=== PATIENT | female | born 1940 | race Caucasian/White ===

== ENCOUNTER 2016-11-30 17:08 | Emergency (ER) | payer MEDICARE, MEDICAID ==
[~2016-11-30] VITALS: Ht 162.6 cm; Wt 65.3 kg
[~2016-11-30 17:08] MED LIST: ASP325T PO; CIPR500S2 PO; ESCI20TA2 PO; ESCI20TA38 PO; EZET1TAB44 PO; FEXO180T84 PO; FLC100T1 PO; GLYB5TAB6 PO; LEXAPRO; LEXAPRO PO; LVT.05T PO; METO25TA PO; MTP25TSR PO; OMEP10CA4 PO; OMEP20CA12 PO; PNT40TEC PO; SCR1T1 PO; SPRN25T GT
--- NOTE | 2016-11-30 17:57 | ED General ---
General Chief Complaint: Dizziness/Syncope Stated Complaint: DISORIENTATION,SWEATY Source of Information: Patient, Spouse Exam Limitations: No Limitations History of Present Illness Time Seen by Provider: 17:50 Initial Comments Patient presents to ER with a chief complaint of just prior to arrival dizziness lightheadedness and nausea. 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 She says her symptoms resolved shortly after they came on and she did not have her glucose monitor to check her sugar. She is not recently had any illness, fever or chills or diarrhea. She says she gets constipated and uses Ex-Lax for this. She also feels that her abdomen is more distended as of lately and was told by her gastric neurologist that she might need to have it drained. She says she has a murmur that is known and has been having some intermittent evening chest pains for the past several weeks and was asked to set up a stress test by her primary doctor but she has not gotten around to doing this yet. She has not had a echocardiogram of her heart either. She has no other coronary history. She is not short of breath. She says she was a little sweaty and cold clammy but did not eat anything immediately after the feeling and the feeling passed within half an hour. She denies a history of seasonal allergies. Allergies and Home Medications Allergies Coded Allergies: hydroxyzine (Unverified Adverse Reaction, Intermediate, ALTERED MENTAL STATUS, 09/06/13) Penicillins (Unverified Adverse Reaction, Unknown, 09/06/13) Home Medications Aspirin 325 Mg Tab, 325 MG PO DAILY, (Reported) [facility], #14 Prescribed by: CATA TAYLOR on 04/26/14 1607 Escitalopram Oxalate 20 Mg Tablet, 20 MG PO DAILY, (Reported) Ezetimibe/Simvastatin 1 Each Tablet, 1 TAB PO HS, (Reported) 10-40MG TABLET LAST FILLED 03-10-13 #90 Glyburide 5 Mg Tablet, 5 MG PO HS, (Reported) Glyburide 5 Mg Tablet, 10 MG PO DAILY, (Reported) TAKES 2 (5MG) TABLETS EVERY MORNING AND TAKES 1 TABLET IN THE EVENING Levothyroxine Sodium 50 Mcg Tablet, 50 MCG PO DAILY, (Reported) Metoprolol Succinate 25 Mg Tab.sr.24h, 25 MG PO DAILY, (Reported) Pantoprazole Sodium 40 Mg Tablet.dr, 1 TAB PO DAILY, #90 (Reported) Spironolactone 25 Mg Tab, 50 MG GT BID, #100 Prescribed by: CATA TAYLOR on 04/26/14 1607 Sucralfate 1 Gm Tab, 1 GM PO ACHS PRN for REFLUX/ABD PAIN, (Reported) Constitutional: see HPI, No chills, diaphoresis, dizziness, No fever, malaise EENTM: blurred vision, No ear discharge, No ear pain, No eye pain, No vision loss Respiratory: No cough, No short of breath Cardiovascular: see HPI, No Hx of Intervention, No palpitations, No syncope, No vascular heart diseas Gastrointestinal: abdominal pain (mild diffuse tenderness and distention), constipation, No diarrhea, No nausea, No vomiting Genitourinary: No discharge, No dysuria : No Musculoskeletal: No joint pain, No joint swelling Skin: No pruritus, rash (mild erythematous rash in the middle of her anterior chest) Psychiatric/Neurological: Denies Headache, Denies Numbness, Denies Paresthesia Past Tbhimjv-Aowsqy-Rgkhkj Hx Patient Social History Alcohol Use: Denies Use Recreational Drug Use: No Smoking Status: Never a Smoker Recent Foreign Travel: No Contact w/Someone Who Travel: No Surgeries HX Surgeries: Yes (VENTRAL HERNIA REPAIR, GANGLION ON HANDS) Respiratory Hx Respiratory Disorders: No Cardiovascular Hx Cardiac Disorders: Yes (SMALL ANEURYSM) Neurological Hx Neurological Disorders: No Reproductive System Hx Reproductive Disorders: No Genitourinary Hx Genitourinary Disorders: No Gastrointestinal Hx Gastrointestinal Disorders: Yes Gastrointestinal Disorders: Cirrhosis Musculoskeletal Hx Musculoskeletal Disorders: Yes Musculoskeletal Disorders: Arthritis Endocrine Hx Endocrine Disorders: Yes Endocrine Disorders: Hypothyroidsim, Diabetes, Non-Insulin dep HEENT HX ENT Disorders: No Cancer Hx Cancer: No Psychosocial Hx Psychiatric Problems: Yes Behavioral Health Disorders: Anxiety, Depression Integumentary HX Skin/Integumentary Disorder: Yes Skin/Integumentary Disorders: Eczema Blood Transfusions Hx Blood Disorders: No Adverse Reaction to a Blood Tr: No Family Medical History Family Medial History: Cancer 19 MOTHER (LUNG CANCER) G8 SISTER (NON HODGKINS LYMPHOMA) Congenital heart disease 19 MOTHER Family history: Arthritis 19 FATHER 19 MOTHER G8 BROTHER G8 SISTER G8 SISTER G8 SISTER G8 SISTER G8 SISTER Family history: Cardiovascular disease 19 MOTHER Family history: Hypertension 19 MOTHER Heart disease 19 MOTHER Myocardial infarction G8 SISTER Stroke 19 FATHER 19 MOTHER Tuberculosis G8 SISTER No Family History of: Abdominal aortic aneurysm Isauro's disease Alcoholism Aphasia Cancer of colon Cataract Chest pain Congestive heart failure Cystic fibrosis Dementia Dysphagia Family history: Allergy Family history: Alzheimer's disease Family history: Asthma Family history: Breast disease Family history: Coronary thrombosis Family history: Diabetes mellitus Family history: Gastrointestinal disease Family history: Glaucoma Family history: Osteoporosis Family history: Thyroid disorder Headache Hearing loss Hereditary disease History of - anemia History of - disorder History of - respiratory disease History of drug abuse Human immunodeficiency virus (HIV) seropositivity Hypercholesterolemia Infertile Kidney disease Malignant neoplasm of lung Parkinson's disease Prostate cancer Psychotic disorder Seizure disorder Visual impairment Physical Exam Vital Signs Vital Sign - Last 12Hours 11/30/16 17:49 Temp 97.0 Pulse 69 Resp 18 B/P (MAP) 113/47 Pulse Ox 96 Capillary Refill : General Appearance: No Apparent Distress, WD/WN Eyes: Bilateral Eye EOMI, Bilateral Eye Normal Inspection, Bilateral Eye PERRL HEENT: PERRL/EOMI, No TMs Normal, Normal ENT Inspection, Pharynx Normal, Other (bilateral TMs retracted with clear effusion) Neck: Normal Inspection, Non Tender, Supple Respiratory: Chest Non Tender, Lungs Clear, Normal Breath Sounds Cardiovascular: Regular Rate, Rhythm, No JVD, Normal Peripheral Pulses, Systolic Murmur (3 out of 6) Gastrointestinal: Normal Bowel Sounds, Soft, Distended, Tenderness (diffuse but especially right upper quadrant) Extremity: Normal Capillary Refill, Non Tender, No Calf Tenderness, No Pedal Edema Neurologic/Psychiatric: Alert, Oriented x3, Normal Mood/Affect Skin: Normal Color, Warm/Dry, Erythema (mild 4 cm erythematous patch mid anterior chest over the sternum) Lymphatic: No Adenopathy Progress/Results/Core Measures Results/Orders Lab Results Laboratory Tests Test 11/30/16 17:42 11/30/16 17:48 11/30/16 18:38 Range/Units White Blood Count 3.1 L 4.3-11.0 10^3/uL Red Blood Count 3.03 L 4.35-5.85 10^6/uL Hemoglobin 10.6 L 11.5-16.0 G/DL Hematocrit 31 L 35-52 % Mean Corpuscular Volume 103 H 80-99 FL Mean Corpuscular Hemoglobin 35 H 25-34 PG Mean Corpuscular Hemoglobin Concent 34 32-36 G/DL Red Cell Distribution Width 12.9 10.0-14.5 % Platelet Count 86 L 130-400 10^3/uL Mean Platelet Volume 10.6 H 7.4-10.4 FL Neutrophils (%) (Auto) 52 42-75 % Lymphocytes (%) (Auto) 26 12-44 % Monocytes (%) (Auto) 14 H 0-12 % Eosinophils (%) (Auto) 7 0-10 % Basophils (%) (Auto) 1 0-10 % Neutrophils # (Auto) 1.6 L 1.8-7.8 X 10^3 Lymphocytes # (Auto) 0.8 L 1.0-4.0 X 10^3 Monocytes # (Auto) 0.4 0.0-1.0 X 10^3 Eosinophils # (Auto) 0.2 0.0-0.3 10^3/uL Basophils # (Auto) 0.0 0.0-0.1 10^3/uL Prothrombin Time 13.7 12.2-14.7 SEC INR Comment 1.1 0.8-1.4 Sodium Level 139 135-145 MMOL/L Potassium Level 3.7 3.6-5.0 MMOL/L Chloride Level 105 98-107 MMOL/L Carbon Dioxide Level 24 21-32 MMOL/L Anion Gap 10 5-14 MMOL/L Blood Urea Nitrogen 12 7-18 MG/DL Creatinine 0.85 0.60-1.30 MG/DL Estimat Glomerular Filtration Rate > 60 BUN/Creatinine Ratio 14 Glucose Level 164 H 70-105 MG/DL Calcium Level 8.7 8.5-10.1 MG/DL Total Bilirubin 1.8 H 0.1-1.0 MG/DL Aspartate Amino Transf (AST/SGOT) 25 5-34 U/L Alanine Aminotransferase (ALT/SGPT) 11 0-55 U/L Alkaline Phosphatase 215 H 40-136 U/L Ammonia 43 H 11-32 UMOL/L Troponin I < 0.30 <0.30 NG/ML B-Type Natriuretic Peptide 158.7 H <100.0 PG/ML Total Protein 7.0 6.4-8.2 GM/DL Albumin 3.0 L 3.2-4.5 GM/DL Lipase 37 8-78 U/L Glucometer 168 H 70-110 MG/DL Urine Color YELLOW Urine Clarity SLIGHTLY CLOUDY Urine pH 5 5-9 Urine Specific [place] 1.025 H 1.016-1.022 Urine Protein 2+ H NEGATIVE Urine Glucose (UA) NEGATIVE NEGATIVE Urine Ketones 1+ H NEGATIVE Urine Nitrite POSITIVE H NEGATIVE Urine Bilirubin 2+ H NEGATIVE Urine Urobilinogen 4 H NORMAL MG/DL Urine Leukocyte Esterase 2+ H NEGATIVE Urine RBC (Auto) 1+ H NEGATIVE Urine RBC 0-2 /HPF Urine WBC 25-50 H /HPF Urine Squamous Epithelial Cells 10-25 H /HPF Urine Crystals NONE /LPF Urine Bacteria LARGE H /HPF Urine Casts NONE /LPF Urine Mucus LARGE H /LPF Urine Culture Indicated YES My Orders Orders - KALPANA JEAN Ammonia (11/30/16 17:57) BNP (11/30/16 17:57) Cbc With Automated Diff (11/30/16 17:57) Comprehensive Metabolic Panel (11/30/16 17:57) Lipase (11/30/16 17:57) Troponin I (11/30/16 17:57) Ua Culture If Indicated (11/30/16 17:57) Chest Pa/Lat (2 View) (11/30/16 17:57) Saline Lock/Iv-Start (11/30/16 17:57) Protime With Inr (11/30/16 18:06) Urine Culture (11/30/16 18:38) Ceftriaxone Injection (Rocephin Injectio (11/30/16 19:30) Medications Given in ED Current Medications Medications Dose Ordered Sig/Jassi Route Start Time Stop Time Status Last Admin Dose Admin Ceftriaxone Sodium 1000 mg/ Sodium Chloride 50 ml @ 100 mls/hr ONCE ONCE IV 11/30/16 19:30 11/30/16 19:59 11/30/16 19:43 100 MLS/HR Vital Signs/I&O Vital Sign - Last 12Hours 11/30/16 11/30/16 17:49 18:26 Temp 97.0 Pulse 69 78 82 Resp 18 B/P (MAP) 113/47 Pulse Ox 96 Progress Note #1: Time: 18:03 Progress Note Patient presents with vague symptoms could be consistent with a hypoglycemic attack secondary to her diabetes and liver disease or could be an atypical presentation of cardiac. We'll check a troponin and her EKG looks normal. She is distended so its possible she could be a little dehydrated intravascularly so we'll check a set of orthostatic vitals. We'll get a BMP PT/INR and an ammonia level for baseline. Her chest pains are not this evening and her intermittent going on for the last several weeks so a negative troponin and EKG will probably rule out an acute GA but she may need further workup. She has retracted TMs which may be from allergies or a virus and could contribute to her dizziness as well. Her dizziness seems more lightheaded than room spinning per history. Review of her history reveals Echocardiogram from 2014 with an EF of 60% and mild mitral and tricuspid regurgitation with a pulmonary artery pressure of 40 mmHg. Cardiac catheterization report from 2010 reveals LAD calcified with 40% stenosis proximally and nonobstructive mid right coronary artery with 40% proximal stenosis and 2 segments of 40 and 50% stenosis the mid and distal right coronary artery. Piece Jobber is Dr. Esparza. ED ACS score is 17 which is not low risk and recommend a overnight serial cardiac examination with troponins and EKGs. Progress Note #2: Time: 18:56 Progress Note Her pancytopenia and elevated transaminases would be consistent with her liver disease. Her ammonia is mildly elevated. However her clinical exam does not demonstrate hepatic encephalopathy at this time. Don't have her urine back but her chest x-ray is normal and her glucose was also okay upon arrival by [facility]. After comparing her lab to 2013 in 2014 blood work this is fairly stable and nothing is out of the ordinary. Her PT/INR is normal. The orthostatic blood pressures were all unremarkable. ECG Initial ECG Impression Date: Nov 30, 2016 Initial ECG Impression Time: 17:43 Initial ECG Rate: 69 Initial ECG Rhythm: Normal Sinus Initial ECG Intervals: QT (497 ms) Initial ECG Impression: Nonspecific Changes (left ventricular hypertrophy) Initial ECG Comparisson: No Previous ECG Available Comment No ST wave elevation or depression Diagnostic Imaging Diagonstic Imaging: Xray Plain Films/CT/US/NM/MRI: chest (PA/LAT) Comments VIA [facility]. [place], [place] NAME: TATE [facility]MOLEJO [facility] REC#: [id number] PT STATUS: REG ER : 1940 PHYSICIAN: KALPANA JEAN MD ADMIT DATE: 11/30/16/ER Draft Date of Exam:11/30/16 CHEST PA/LAT (2 VIEW) EXAM: CHEST PA/LAT (2 VIEW) INDICATION: Nausea. Near syncope. COMPARISON: Chest radiographs 01/26/2013. FINDINGS: Low lung volumes including elevation of the right hemidiaphragm. Normal heart size and pulmonary vascularity. Calcified aorta. No dense consolidation, pleural effusion or pneumothorax. Nonspecific bowel gas pattern in the upper abdomen. Cholecystectomy clips. IMPRESSION: Low lung volumes, including persistent elevation of the right hemidiaphragm. No acute cardiopulmonary findings. Dictated on workstation # [id number] Dict: 11/30/16 1825 Trans: 11/30/16 1838 [facility] [id number] Interpreted by: LLOYD RAWLS MD Electronically signed by: Reviewed: Reviewed by Me Departure Impression Impression: Primary Impression: Urinary tract infection Qualified Codes: N30.01 - Acute cystitis with hematuria Disposition: HOME, SELF-CARE Condition: Stable Departure-Patient Inst. Decision time for Depature: 19:48 Referrals: SAMINA TREVINO MD (PCP/Family) Primary Care Physician Patient Instructions: Urinary Tract Infection, Adult (DC) Add. Discharge Instructions: Tomorrow morning chicken picker your antibiotics from the pharmacy and take them to completion. Drink plenty of fluids. Return to the ER if you are having chest pain, shortness of breath, nausea or vomiting. Tomorrow morning you should also call your facilities locator's office at [phone] and get set up to have a follow-up for your intermittent chest pains. All discharge instructions reviewed with patient and/or family. Voiced understanding. Scripts Cephalexin (Keflex) 500 Mg Capsule 500 MG PO BID for 7 Days, #12 CAP 0 Refills Prov: KALPANA JEAN 11/30/16 Copy Copies To 1: SAMINA TREVINO MD, TITUS J Nov 30, 2016 17:57
[2016-11-30 18:08] LABS: BASOPHILS % (AUTO) 1 % (0-10); EOSINOPHILS # (AUTO) 0.2 10^3/uL (0.0-0.3); EOSINOPHILS % (AUTO) 7 % (0-10); LYMPHOCYTES # (AUTO) 0.8 X 10^3 (1.0-4.0); LYMPHOCYTES % (AUTO) 26 % (12-44); MEAN CORPUSCULAR HEMOGLOBIN 35 PG (25-34); MEAN CORPUSCULAR HGB CONC 34 G/DL (32-36); MEAN CORPUSCULAR VOLUME 103 FL (80-99); MEAN PLATELET VOLUME 10.6 FL (7.4-10.4); MONOCYTES # (AUTO) 0.4 X 10^3 (0.0-1.0); MONOCYTES % (AUTO) 14 % (0-12); NEUTROPHILS # (AUTO) 1.6 X 10^3 (1.8-7.8); NEUTROPHILS % (AUTO) 52 % (42-75); PLATELET COUNT 86 10^3/uL (130-400); RED BLOOD COUNT 3.03 10^6/uL (4.35-5.85); RED CELL DISTRIBUTION WIDTH 12.9 % (10.0-14.5); WHITE BLOOD COUNT 3.1 10^3/uL (4.3-11.0)
[2016-11-30 18:19] LABS: INR 1.1 (0.8-1.4); PROTHROMBIN TIME PATIENT 13.7 SEC (12.2-14.7)
[2016-11-30 18:22] LABS: ALANINE AMINOTRANSFERASE 11 U/L (0-55); AMMONIA 43 UMOL/L (11-32); ANION GAP 10 MMOL/L (5-14); ASPARTATE AMINO TRANSFERASE 25 U/L (5-34); BILIRUBIN,TOTAL 1.8 MG/DL (0.1-1.0); BLOOD UREA NITROGEN 12 MG/DL (7-18); BUN/CREATININE RATIO 14; CALCIUM 8.7 MG/DL (8.5-10.1); CARBON DIOXIDE 24 MMOL/L (21-32); CHLORIDE 105 MMOL/L (98-107); CREATININE SERUM 0.85 MG/DL (0.60-1.30); GFR ESTIMATED > 60; GLUCOSE 164 MG/DL (70-105); LIPASE 37 U/L (8-78); POTASSIUM 3.7 MMOL/L (3.6-5.0); SODIUM 139 MMOL/L (135-145)
[2016-11-30 18:28] LABS: TROPONIN I < 0.30 NG/ML (<0.30)
--- NOTE | 2016-11-30 18:39 | Diagnostic Imaging Report ---
EXAM: CHEST PA/LAT (2 VIEW) INDICATION: Nausea. Near syncope. COMPARISON: Chest radiographs 01/26/2013. FINDINGS: Low lung volumes including elevation of the right hemidiaphragm. Normal heart size and pulmonary vascularity. Calcified aorta. No dense consolidation, pleural effusion or pneumothorax. Nonspecific bowel gas pattern in the upper abdomen. Cholecystectomy clips. IMPRESSION: Low lung volumes, including persistent elevation of the right hemidiaphragm. No acute cardiopulmonary findings. Dictated by: Dictated on workstation # [id number]
[2016-11-30 18:47] LABS: KETONES,URINE 1+ (NEGATIVE); LEUKOCYTE ESTERASE ,URINE 2+ (NEGATIVE); NITRITE,URINE POSITIVE (NEGATIVE); PH,URINE 5 (5-9); PROTEIN,URINE 2+ (NEGATIVE); UROBILINOGEN,URINE 4 MG/DL (NORMAL)
[2016-11-30 19:12] LABS: BILIRUBIN,URINE 2+ (NEGATIVE); WBC,URINE 25-50 /HPF
[2016-11-30] MEDS ORDERED: cefTRIAXone INJECTION 1,000 MG in NS (IVPB) 50 ML IV ONE (19:30)
[2016-11-30] MEDS ORDERED: CEPH-507 PO ×2 (19:50→20:17)
[2016-11-30 20:02] VITALS: BP 107/59
== END 2016-11-30 20:02 | disposition home or self-care (01) ==
LOC: EDUNIT# 17:08 → ER 17:09
DX: N39.0 Urinary tract infection, site not specified (principal); E11.9 Type 2 diabetes mellitus without complications; M19.90 Unspecified osteoarthritis, unspecified site; E03.9 Hypothyroidism, unspecified; F41.9 Anxiety disorder, unspecified; F32.9 Major depressive disorder, single episode, unspecified; Z79.84 Long term (current) use of oral hypoglycemic drugs; Z82.49 Family history of ischemic heart disease and other diseases of the circulatory system; Z79.82 Long term (current) use of aspirin; Z87.19 Personal history of other diseases of the digestive system
CPT/HCPCS: 36415; 71020; 80053; 81000; 82140; 82962; 83690; 83880; 84484; 85025; 85610; 87088; 87186; 96365

== ENCOUNTER → 2017-01-06 | Outpatient (CLI) | payer MEDICARE, MEDICAID ==
[~2017-01-06] MED LIST changes: +CATHETER FLUSH 10 ML SYR IV PRN; +CEPH-507 PO; +REGADENOSON 0.4 MG/5 ML SYR (LEXISCAN) IV ONE
[2017-01-06 09:06] VITALS: BP 120/70
[2017-01-06 09:16] VITALS: BP 122/60
--- NOTE | 2017-01-07 09:29 | STRESS TEST ---
DATE OF SERVICE: 01/06/2017 LEXISCAN MYOVIEW STRESS TEST REPORT REFERRING PHYSICIAN: Dr. Watson. Baseline heart rate is 83, baseline blood pressure 120/70, baseline EKG in sinus rhythm with no ischemic changes. In summary, the patient was injected with 10.49 mCi of technetium-99 Myoview and the resting images were obtained. Then, the patient received 0.4 mg of Lexiscan followed by 29.5 mCi of technetium-99 Myoview. Throughout the test, there were no EKG changes. The resting and stress images were reviewed and compared in the short axis, horizontal long axis, and vertical long axis views. Review of the images showed good radiotracer uptake with no ischemia or infarction on SPECT images. SSS is 1, SDS 1, TID value 0.97. On the gaited images, the left ventricle appeared to be normal size with normal contractility, calculated ejection fraction of 90%. CONCLUSION: 1. The patient tolerated Lexiscan well. 2. No ischemia or infarction on SPECT images. 3. Normal left ventricular size and normal contractility with calculated ejection fraction of 90%. Job ID: [id number] DocumentID: [id number] Dictated Date: 01/06/2017 15:24:04 Tufter Hand Date: 01/06/2017 19:45:35 Dictated By: DALLAS RUBIO MD
== END ==
LOC: CARD 07:54
PROVIDERS: ATTEND Internal Medicine Cardiovascular Disease
DX: R07.89 Other chest pain; R00.2 Palpitations; I25.10 Atherosclerotic heart disease of native coronary artery without angina pectoris; E78.5 Hyperlipidemia, unspecified; I10 Essential (primary) hypertension
CPT/HCPCS: 78452; 93017

== ENCOUNTER 2017-05-27 14:22 | Outpatient (RCR) | payer MEDICARE, MEDICAID ==
[2017-04-26 14:38] LABS: BASOPHILS % (AUTO) 1 % (0-10); EOSINOPHILS # (AUTO) 0.2 10^3/uL (0.0-0.3); EOSINOPHILS % (AUTO) 8 % (0-10); HEMATOCRIT 36 % (35-52); HEMOGLOBIN 11.3 G/DL (11.5-16.0); LYMPHOCYTES # (AUTO) 0.6 X 10^3 (1.0-4.0); LYMPHOCYTES % (AUTO) 22 % (12-44); MEAN CORPUSCULAR HEMOGLOBIN 36 PG (25-34); MEAN CORPUSCULAR HGB CONC 32 G/DL (32-36); MEAN CORPUSCULAR VOLUME 113 FL (80-99); MEAN PLATELET VOLUME 9.6 FL (7.4-10.4); MONOCYTES # (AUTO) 0.4 X 10^3 (0.0-1.0); MONOCYTES % (AUTO) 12 % (0-12); NEUTROPHILS # (AUTO) 1.6 X 10^3 (1.8-7.8); NEUTROPHILS % (AUTO) 56 % (42-75); PLATELET COUNT 93 10^3/uL (130-400); RED BLOOD COUNT 3.14 10^6/uL (4.35-5.85); RED CELL DISTRIBUTION WIDTH 14.3 % (10.0-14.5); WHITE BLOOD COUNT 2.9 10^3/uL (4.3-11.0)
[2017-04-26 14:40] LABS: ALANINE AMINOTRANSFERASE 18 U/L (0-55); ALKALINE PHOSPHATASE 266 U/L (40-136); BILIRUBIN,TOTAL 2.3 MG/DL (0.1-1.0); BUN/CREATININE RATIO 12; CARBON DIOXIDE 29 MMOL/L (21-32); CHLORIDE 101 MMOL/L (98-107); GFR ESTIMATED > 60; GLUCOSE 164 MG/DL (70-105); POTASSIUM 3.3 MMOL/L (3.6-5.0); SODIUM 141 MMOL/L (135-145); TOTAL PROTEIN 7.4 GM/DL (6.4-8.2)
[2017-04-26 14:43] LABS: ABSOLUTE RETIC # 89 10e9/L (24-90); RETICULOCYTE % 2.84 % (0.50-2.40)
[~2017-05-27 14:22] MED LIST changes: -CATHETER FLUSH 10 ML SYR IV PRN; -REGADENOSON 0.4 MG/5 ML SYR (LEXISCAN) IV ONE
[2017-05-27 14:57] LABS: BASOPHILS % (AUTO) 1 % (0-10); EOSINOPHILS # (AUTO) 0.1 10^3/uL (0.0-0.3); EOSINOPHILS % (AUTO) 5 % (0-10); HEMATOCRIT 31 % (35-52); HEMOGLOBIN 10.6 G/DL (11.5-16.0); LYMPHOCYTES # (AUTO) 0.6 X 10^3 (1.0-4.0); LYMPHOCYTES % (AUTO) 24 % (12-44); MEAN CORPUSCULAR HEMOGLOBIN 36 PG (25-34); MEAN CORPUSCULAR HGB CONC 34 G/DL (32-36); MEAN CORPUSCULAR VOLUME 106 FL (80-99); MEAN PLATELET VOLUME 9.5 FL (7.4-10.4); MONOCYTES # (AUTO) 0.3 X 10^3 (0.0-1.0); MONOCYTES % (AUTO) 12 % (0-12); NEUTROPHILS # (AUTO) 1.5 X 10^3 (1.8-7.8); NEUTROPHILS % (AUTO) 58 % (42-75); PLATELET COUNT 91 10^3/uL (130-400); RED BLOOD COUNT 2.95 10^6/uL (4.35-5.85); RED CELL DISTRIBUTION WIDTH 13.1 % (10.0-14.5); WHITE BLOOD COUNT 2.6 10^3/uL (4.3-11.0)
[2017-05-27 15:14] LABS: ERYTHROCYTE SEDIMENTATION RATE 74 MM/HR (0-30)
[2017-05-27 15:17] LABS: ALANINE AMINOTRANSFERASE 12 U/L (0-55); ALBUMIN 2.8 GM/DL (3.2-4.5); ALKALINE PHOSPHATASE 201 U/L (40-136); BILIRUBIN,TOTAL 2.2 MG/DL (0.1-1.0); BUN/CREATININE RATIO 13; CALCIUM 8.9 MG/DL (8.5-10.1); CARBON DIOXIDE 23 MMOL/L (21-32); CHLORIDE 104 MMOL/L (98-107); CREATININE SERUM 0.87 MG/DL (0.60-1.30); GFR ESTIMATED > 60; GLUCOSE 133 MG/DL (70-105); POTASSIUM 3.8 MMOL/L (3.6-5.0); SODIUM 135 MMOL/L (135-145); TOTAL PROTEIN 6.7 GM/DL (6.4-8.2)
== END 2017-07-25 | disposition home or self-care (01) ==
LOC: ONC 14:22
PROVIDERS: ATTEND Internal Medicine Hematology & Oncology
DX: D72.819 Decreased white blood cell count, unspecified (principal); I10 Essential (primary) hypertension; E78.5 Hyperlipidemia, unspecified; R00.2 Palpitations; Z79.899 Other long term (current) drug therapy
CPT/HCPCS: 36415; 80053; 82607; 82728; 82746; 83615; 83883; 84155; 84165; 84443; 85025; 85045; 85652; 86038; 86141; 99213; 99214

== ENCOUNTER 2017-12-15 11:09 | Inpatient (IN) | payer MEDICARE, MEDICAID ==
[~2017-12-15] VITALS: Ht 162.6 cm; Wt 65.8 kg
[2017-12-15] VITALS (9 sets, daily range): BP systolic 96–132; BP diastolic 49–79
--- NOTE | 2017-12-15 11:22 | ED General ---
General Stated Complaint: POSS GI BLEED Source of Information: EMS, Family, Penitentiary Records Exam Limitations: Physical Impairments History of Present Illness Date Seen by Provider: Dec 15, 2017 Time Seen by Provider: 11:19 Initial Comments To ER per EMS from via [facility] with c/o increased lethargy and bloody stools. She has resided at [facility] since a hip surgery for left femoral neck fracture treated at [place] about 20 days ago according to . Prior to that she lived at home with her , he states she does have a bit of baseline confusion. halfway staff has noticed increasingly bloody stools over the past 3 days. Primary care is Dr. Trevino. states she also has a bad liver and has "fluid in her abdomen". Diagnosis list from the halfway reports type 2 diabetes, nonalcoholic steatohepatitis with thrombocytopenia, major depression, hypothyroidism. She is also on xarelto 10 mg daily started after the hip surgery, she did have today's dose. Timing/Duration: 2-3 Days Severity: Moderate Allergies and Home Medications Allergies Coded Allergies: hydroxyzine (Unverified Adverse Reaction, Intermediate, ALTERED MENTAL STATUS, 09/06/13) Penicillins (Unverified Adverse Reaction, Unknown, 09/06/13) Home Medications Aspirin 325 Mg Tab, 325 MG PO DAILY, (Reported) Cephalexin 500 Mg Capsule, 500 MG PO BID Prescribed by: KALPANA JEAN on 11/30/162016 Ciprofloxacin 500 Mg/5 Ml [facility]..rec, 500 MG PO BID Prescribed by: CATA TAYLOR on 04/26/14 1607 Escitalopram Oxalate 20 Mg Tablet, 20 MG PO DAILY, (Reported) Ezetimibe/Simvastatin 1 Each Tablet, 1 TAB PO HS, (Reported) 10-40MG TABLET LAST FILLED 03-10-13 #90 Glyburide 5 Mg Tablet, 5 MG PO HS, (Reported) Glyburide 5 Mg Tablet, 10 MG PO DAILY, (Reported) TAKES 2 (5MG) TABLETS EVERY MORNING AND TAKES 1 TABLET IN THE EVENING Levothyroxine Sodium 50 Mcg Tablet, 50 MCG PO DAILY, (Reported) Metoprolol Succinate 25 Mg Tab.sr.24h, 25 MG PO DAILY, (Reported) Pantoprazole Sodium 40 Mg Tablet.dr, 1 TAB PO DAILY, (Reported) Spironolactone 25 Mg Tab, 50 MG GT BID Prescribed by: CATA TAYLOR on 04/26/14 1607 Sucralfate 1 Gm Tab, 1 GM PO ACHS PRN for REFLUX/ABD PAIN, (Reported) Patient Home Medication List Home Medication List Reviewed: Yes Review of Systems Review of Systems Constitutional: see HPI EENTM: see HPI Respiratory: no symptoms reported Cardiovascular: no symptoms reported Genitourinary: no symptoms reported Musculoskeletal: no symptoms reported Skin: no symptoms reported Psychiatric/Neurological: No Symptoms Reported Hematologic/Lymphatic: No Symptoms Reported Immunological/Allergic: no symptoms reported Past Nmoqdlb-Pienvx-Avkdur Hx Patient Social History 2nd Hand Smoke Exposure: Yes Past Medical History Surgeries: Yes (VENTRAL HERNIA REPAIR, GANGLION ON HANDS) Gallbladder Respiratory: No Cardiac: Yes (SMALL ANEURYSM) High Cholesterol, Irregular Heartbeat Neurological: No Reproductive Disorders: No Genitourinary: No Gastrointestinal: Yes Liver Disease/Jaundice, Diverticulosis, Cirrhosis Musculoskeletal: Yes Arthritis Endocrine: Yes Hypothyroidsim, Diabetes, Non-Insulin dep Cancer: No Psychosocial: Yes Anxiety, Depression Integumentary: Yes Eczema Blood Disorders: No Adverse Reaction/Blood Tranf: No Family Medical History Cancer 19 MOTHER (LUNG CANCER) G8 SISTER (NON HODGKINS LYMPHOMA) Congenital heart disease 19 MOTHER Family history: Arthritis 19 FATHER 19 MOTHER G8 BROTHER G8 SISTER G8 SISTER G8 SISTER G8 SISTER G8 SISTER Family history: Cardiovascular disease 19 MOTHER Family history: Hypertension 19 MOTHER Heart disease 19 MOTHER Myocardial infarction G8 SISTER Stroke 19 FATHER 19 MOTHER Tuberculosis G8 SISTER No Family History of: Abdominal aortic aneurysm [place]'s disease Alcoholism Aphasia Cancer of colon Cataract Chest pain Congestive heart failure Cystic fibrosis Dementia Dysphagia Family history: Allergy Family history: Alzheimer's disease Family history: Asthma Family history: Breast disease Family history: Coronary thrombosis Family history: Diabetes mellitus Family history: Gastrointestinal disease Family history: Glaucoma Family history: Osteoporosis Family history: Thyroid disorder Headache Hearing loss Hereditary disease History of - anemia History of - disorder History of - respiratory disease History of drug abuse Human immunodeficiency virus (HIV) seropositivity Hypercholesterolemia Infertile Kidney disease Malignant neoplasm of lung Parkinson's disease Prostate cancer Psychotic disorder Seizure disorder Visual impairment Physical Exam Vital Signs Capillary Refill : Height, Weight, BMI Height: 5'4.00" Weight: 144lbs. 2.0oz. [id number]; BMI Method:Stated General Appearance: No Apparent Distress, Thin, Other (frail, elderly) Eyes: Bilateral Eye Normal Inspection, Bilateral Eye PERRL, Bilateral Eye EOMI HEENT: PERRL/EOMI Respiratory: Normal Breath Sounds, No Accessory Muscle Use, No Respiratory Distress Cardiovascular: Normal Peripheral Pulses, Systolic Murmur Gastrointestinal: Normal Bowel Sounds, Distended Rectal: Heme Positive Stool Extremity: Normal Capillary Refill, Normal Inspection, Pedal Edema (2+), Other (incision over the lateral aspect of the left hip is clean dry and intact without ecchymosis or drainage) Neurologic/Psychiatric: Other (lethargic, does not open eyes to verbal stimuli) Skin: Normal Color, Warm/Dry Progress/Results/Core Measures Suspected Sepsis SIRS Temperature: Pulse: Respiratory Rate: Laboratory Tests 12/15/17 11:20: White Blood Count 5.9 Blood Pressure / Mean: Laboratory Tests 12/15/17 11:20: Platelet Count 108L 12/15/17 11:34: Creatinine 1.73H, INR Comment 4.6H, Total Bilirubin 2.6H Results/Orders Lab Results Laboratory Tests Test 12/15/17 11:00 12/15/17 11:20 12/15/17 11:34 Range/Units White Blood Count 5.9 4.3-11.0 10^3/uL Red Blood Count 2.66 L 4.35-5.85 10^6/uL Hemoglobin 9.1 L 11.5-16.0 G/DL Hematocrit 27 L 35-52 % Mean Corpuscular Volume 103 H 80-99 FL Mean Corpuscular Hemoglobin 34 25-34 PG Mean Corpuscular Hemoglobin Concent 33 32-36 G/DL Red Cell Distribution Width 19.4 H 10.0-14.5 % Platelet Count 108 L 130-400 10^3/uL Mean Platelet Volume 10.7 H 7.4-10.4 FL Neutrophils (%) (Auto) 75 42-75 % Lymphocytes (%) (Auto) 8 L 12-44 % Monocytes (%) (Auto) 17 H 0-12 % Eosinophils (%) (Auto) 1 0-10 % Basophils (%) (Auto) 0 0-10 % Neutrophils # (Auto) 4.4 1.8-7.8 X 10^3 Lymphocytes # (Auto) 0.5 L 1.0-4.0 X 10^3 Monocytes # (Auto) 1.0 0.0-1.0 X 10^3 Eosinophils # (Auto) 0.1 0.0-0.3 10^3/uL Basophils # (Auto) 0.0 0.0-0.1 10^3/uL Prothrombin Time 43.8 H 12.2-14.7 SEC INR Comment 4.6 H 0.8-1.4 Activated Partial Thromboplast Time 48 H 24-35 SEC Sodium Level 134 L 135-145 MMOL/L Potassium Level 3.3 L 3.6-5.0 MMOL/L Chloride Level 96 L 98-107 MMOL/L Carbon Dioxide Level 28 21-32 MMOL/L Anion Gap 10 5-14 MMOL/L Blood Urea Nitrogen 31 H 7-18 MG/DL Creatinine 1.73 H 0.60-1.30 MG/DL Estimat Glomerular Filtration Rate 29 BUN/Creatinine Ratio 18 Glucose Level 196 H 70-105 MG/DL Calcium Level 9.4 8.5-10.1 MG/DL Corrected Calcium 10.8 H 8.5-10.1 MG/DL Total Bilirubin 2.6 H 0.1-1.0 MG/DL Aspartate Amino Transf (AST/SGOT) 36 H 5-34 U/L Alanine Aminotransferase (ALT/SGPT) 22 0-55 U/L Alkaline Phosphatase 298 H 40-136 U/L Total Protein 6.1 L 6.4-8.2 GM/DL Albumin 2.2 L 3.2-4.5 GM/DL My Orders Orders - ROXIE AVENDAÑO APRN Cbc With Automated Diff (12/15/17 11:17) Red Cells Leukocytes Reduced (12/15/17 11:17) Comprehensive Metabolic Panel (12/15/17 11:17) Protime With Inr (12/15/17 11:17) Partial Thromboplastin Time (12/15/17 11:17) Chest 1 View, Ap/Pa Only (12/15/17 11:17) Iv Heplock-Insert (Order) (12/15/17 11:17) Type And Screen (12/15/17 11:17) Thyroid Stimulating Hormone (12/15/17 11:23) Free T4 (Free Thyroxine) (12/15/17 11:23) Pantoprazole Injection (Protonix Injecti (12/15/17 11:30) Ua Culture If Indicated (12/15/17 11:59) Anaya Cath (12/15/17 11:59) Medications Given in ED Current Medications Medications Dose Ordered Sig/Jassi Route Start Time Stop Time Status Last Admin Dose Admin Pantoprazole 40 mg ONCE ONCE IV 12/15/17 11:30 12/15/17 11:31 DC 12/15/17 12:07 40 MG Vital Signs/I&O Capillary Refill : Diagnostic Imaging Diagonstic Imaging: Xray Plain Films/CT/US/NM/MRI: chest Comments NAME: TATE MARMOLEJO [facility] REC#: [id number] PT STATUS: REG ER : 1940 PHYSICIAN: ROXIE AVENDAÑO APRN ADMIT DATE: 12/15/17/ER Draft Date of Exam:12/15/17 CHEST 1 VIEW, AP/PA ONLY INDICATION: Recent hip surgery. Chest pain. COMPARISON: 11/30/2016 FINDINGS: Single frontal radiographic view of the chest demonstrates normal cardiac silhouette and pulmonary vasculature, accounting for moderate rotation. There is persistent asymmetric elevation of the right hemidiaphragm. There is no new focal consolidation, large effusion, nor pneumothorax. IMPRESSION: 1. Persistent asymmetric elevation of the right hemidiaphragm, but otherwise no acute cardiopulmonary process. Dictated on workstation # [id number] Dict: 12/15/17 1211 Trans: 12/15/17 1213 [id number] Interpreted by: LETI SANDERS MD Electronically signed by: Departure Communication (Admissions) Time/Spoke to Admitting Phy: 11:59 We did obtain lab history from [facility]. 12/09 her hemoglobin was 11.5, 12/13 she was 9.8. Today she is 9.1. states he does want CPR done if it's necessary but does not want her to be intubated. She will be FULL CODE but DO NOT INTUBATE Impression Primary Impression: GI bleed Disposition: ADMITTED INPATIENT Condition: Stable Admissions Decision to Admit Reason: Admit from ER (General) Decision to Admit/Date: Dec 15, 2017 Time/Decision to Admit Time: 11:46 Departure-Patient Inst. Referrals: SAMINA TREVINO MD (PCP/Family) Primary Care Physician ROXIE AVENDAÑO APRN Dec 15, 2017 11:22
--- OUTSIDE RECORDS SUMMARY | 2017-12-15 11:29 | XMS REPORT | Continuity of Care Document ---
Author Author [facility] Address Unknown Phone Unavailable Allergies Active Description Code Type Severity Reaction Onset Reported/Identified Relationship to Patient Clinical Status Yes PENICILLINS UNKNOWN UNKNOWN Yes Penicillins Drug Allergy 07/04/2012 Yes Penicillins Drug Allergy N/A N/A 07/04/2012 Yes hydroxyzine [id number] Drug Allergy Moderate ALTERED MENTAL 09/06/2013 Yes Penicillins [id number] Drug Allergy Unknown N/A 09/06/2013 Medications Medication Packaging Start Date Stop Date Route Dosage Sig CITRATE OF MAGNESIA LIQ ml 201609/28/2016 ONCE &0040 FENTANYL INJ 100 MCG/2CC VIAL MCG 11/20/2017 11/20/2017 ONCE&0559 LACTATED RINGERS 500CC IV BAG INJ ml 11/20/2017 11/20/2017 ONCE&0700 CEFTRIAXONE PREMIX IV BAG IV 1 GM/50CC (ROCEPHIN PREMIX IV BAG) GM 11/20/2017 11/20/2017 ONCE&0706 FENTANYL INJ 100 MCG/2CC VIAL MCG 11/20/2017 11/20/2017 ONCE&0820 Problems Date Dx Coded Attending Type Code Diagnosis Diagnosed By 04/01/2011 Ot 250.00 04/01/2011 Ot 272.4 04/01/2011 Ot 401.9 04/01/2011 Ot 414.01 04/01/2011 Ot 786.09 04/01/2011 Ot 786.50 04/01/2011 Ot 794.30 05/23/2012 Ot 455.3 EXT HEMORRHOID W/O COMPL 05/23/2012 Ot 562.10 DIVERTICULOSIS COLON (W/O MENT OF HEMORR 05/23/2012 Ot V76.51 SCREEN MAL NEOP-COLON 07/04/2012 TABBY WOODS APRN S 244.9 HYPOTHYROIDISM 07/04/2012 TABBY WOODS APRN 250.00 DIABETES MELLITUS TYPE 2 07/04/2012 CHUCK ASSOCIATE MERCHANDISE PLANNER, TABBY S 272.4 HYPERLIPIDEMIA 07/04/2012 CHUCK ASSOCIATE MERCHANDISE PLANNER, TABBY S 287.5 THROMBOCYTOPENIA 07/04/2012 CHUCK PERDOMO, TABBY S 300.4 DYSTHYMIC DISORDER 07/04/2012 CHUCK ASSOCIATE MERCHANDISE PLANNER, TABBY S V70.0 EXAM - ROUTINE H&P 07/04/2012 CHUCK ASSOCIATE MERCHANDISE PLANNER, TABBY S 244.9 HYPOTHYROIDISM 07/04/2012 CHUCK PERDOMO, TABBY S 250.00 DIABETES MELLITUS TYPE 2 07/04/2012 CHUCK PERDOMO, TABBY S 272.4 HYPERLIPIDEMIA 07/04/2012 CHUCK PERDOMO, TABBY S 287.5 THROMBOCYTOPENIA 07/04/2012 CHUCK PERDOMO, TABBY S 300.4 DYSTHYMIC DISORDER 07/04/2012 CHUCK ASSOCIATE MERCHANDISE PLANNER, TABBY S V70.0 EXAM - ROUTINE H&P 07/04/2012 CHUCK PERDOMO, TABBY S 244.9 HYPOTHYROIDISM 07/04/2012 CHUCK PERDOMO, TABBY S 250.00 DIABETES MELLITUS TYPE 2 07/04/2012 CHUCK PERDOMO, TABBY S 272.4 HYPERLIPIDEMIA 07/04/2012 CHUCK PERDOMO, TABBY S 287.5 THROMBOCYTOPENIA 07/04/2012 CHUCK PERDOMO, TABBY S 300.4 DYSTHYMIC DISORDER 07/04/2012 CHUCK PEDROMO, TABBY S V70.0 EXAM - ROUTINE H&P 07/04/2012 CHUCK PERDOMO, TABBY S 244.9 HYPOTHYROIDISM 07/04/2012 CHUCK PERDOMO, TABBY S 250.00 DIABETES MELLITUS TYPE 2 07/04/2012 CHUCK PERDOMO, TABBY S 272.4 HYPERLIPIDEMIA 07/04/2012 CHUCK PERDOMO, TABBY S 287.5 THROMBOCYTOPENIA 07/04/2012 CHUCK PERDOMO, TABBY S 300.4 DYSTHYMIC DISORDER 07/04/2012 CHUCK PERDOMO, TABBY S V70.0 EXAM - ROUTINE H&P 07/19/2012 Ot 287.5 THROMBOCYTOPENIA NOS 07/19/2012 Ot 288.00 NEUTROPENIA , UNSPECIFIED 11/28/2012 DOMINIQUE DAHL, BAKARI Gaona Ot 250.00 DIAB [place] WO COMPL, TYPE II OR UNSPEC TY 11/28/2012 BAKARI FOX MD Ot 272.4 HYPERLIPIDEMIA NEC/NOS 11/28/2012 BAKARI FOX MD Ot 287.5 THROMBOCYTOPENIA NOS 11/28/2012 BAKARI FOX MD Ot 288.50 LEUKOCYTOPENIA, UNSPECIFIED 11/28/2012 BAKARI FOX MD Ot 401.9 HYPERTENSION NOS 11/28/2012 BAKARI FOX MD Ot 414.00 CORON ATHEROSCLER NOS TYPE VESSEL, NATIV 11/28/2012 BAKARI FOX MD Ot 571.8 CHRONIC LIVER DIS NEC 11/28/2012 BAKARI FOX MD Ot 611.72 LUMP OR MASS IN BREAST 11/28/2012 BAKARI FOX MD Ot V58.69 OTH MED,LT,CURRENT USE 01/26/2013 CHUCK ASSOCIATE MERCHANDISE PLANNER TABBY S 786.52 CHEST WALL PAIN 01/26/2013 CHUCK ASSOCIATE MERCHANDISE PLANNER TABBY S 786.52 CHEST WALL PAIN 01/26/2013 CHUCK ASSOCIATE MERCHANDISE PLANNER TABBY S 786.52 CHEST WALL PAIN 03/15/2013 CHUCK ASSOCIATE MERCHANDISE PLANNER, TABBY S 780.93 MEMORY LOSS 03/15/2013 CHUCK ASSOCIATE MERCHANDISE PLANNER, TABBY S 780.93 MEMORY LOSS 09/07/2013 SAMINA TREVINO MD Ot 244.9 HYPOTHYROIDISM NOS 09/07/2013 SAMINA TREVINO MD Ot 250.00 DIAB [place] WO COMPL, TYPE II OR UNSPEC TY 09/07/2013 SAMINA TREVINO MD Ot 272.4 HYPERLIPIDEMIA NEC/NOS 09/07/2013 SAMINA TREVINO MD Ot 288.50 LEUKOCYTOPENIA, UNSPECIFIED 09/07/2013 SAMINA TREVINO MD Ot 300.4 DYSTHYMIC DISORDER 09/07/2013 SAMINA TREVINO MD Ot 442.9 ANEURYSM NOS 09/07/2013 SAMINA TREVINO MD Ot 456.1 ESOPH VARICES W/O BLEED 09/07/2013 SAMINA TREVINO MD Ot 553.1 UMBILICAL HERNIA 09/07/2013 SAMINA TREVINO MD Ot 571.5 CIRRHOSIS OF LIVER NOS 09/07/2013 SAMINA TREVINO MD Ot 599.0 URIN TRACT INFECTION NOS 09/07/2013 SAMINA TREVINO MD Ot 716.90 ARTHROPATHY NOS-UNSPEC 09/07/2013 SAMINA TREVINO MD Ot 789.01 ABDOMINAL PAIN, RIGHT UPPER QUADRANT 09/07/2013 BELINDA DAHL, SAMINA Duke Ot 790.6 ABN BLOOD CHEMISTRY NEC 03/14/2014 BELINDA DAHL, SAMINA Duke Ot 571.5 03/29/2014 Ot 272.4 03/29/2014 Ot 401.9 03/29/2014 Ot 785.1 03/29/2014 Ot 786.05 03/29/2014 Ot 791.9 03/29/2014 Ot 794.39 03/29/2014 Ot V72.63 03/29/2014 Ot V72.81 03/29/2014 Ot 288.59 03/29/2014 Ot V76.12 03/29/2014 Ot V72.84 03/29/2014 Ot 793.80 03/29/2014 Ot 611.72 03/29/2014 Ot 287.5 03/29/2014 Ot 288.00 03/29/2014 TABBY WOODS SCREEN PRINTING INSPECTOR Ot 250.00 03/29/2014 TABBY WOODS SCREEN PRINTING INSPECTOR Ot 786.52 03/29/2014 TABBY WOODS SCREEN PRINTING INSPECTOR Ot 433.30 03/29/2014 TABBY WOODS SCREEN PRINTING INSPECTOR Ot 780.93 03/29/2014 KRISTEN DAHL, AMINATA Ot 455.0 03/29/2014 KRISTEN DAHL, AMINATA Ot 455.3 03/29/2014 KRISTEN DAHL, RAMAAAKI Ot 530.11 03/29/2014 KRISTEN DAHL, TAKAAKI Ot 535.50 03/29/2014 KRISTEN DAHL, RAMAAAKI Ot 553.3 03/29/2014 KRISTEN DAHL, RAMAAAKI Ot 562.10 03/29/2014 KRISTEN DAHL, TAKAAKI Ot 569.0 03/29/2014 KRISTEN DAHL, RAMAAAARAM Ot V72.84 03/29/2014 BELINDA DAHL, SAMINA Duke Ot 571.5 04/23/2014 BELINDA DAHL, SAMINA Duke Ot 789.00 04/26/2014 CATA TAYLOR MD Ot 599.0 URIN TRACT INFECTION NOS 04/26/2014 CATA TAYLOR MD Ot 789.07 ABDOMINAL PAIN, GENERALIZED 04/26/2014 CATA TAYLOR MD Ot V58.69 OTH MED,LT,CURRENT USE 04/26/2014 BELINDA DAHL, SAMINA Duke Ot 789.00 04/27/2014 BELINDA DAHL, SAMINA Duke Ot 571.5 01/31/2015 Ot 272.4 01/31/2015 Ot 401.9 01/31/2015 Ot 785.1 01/31/2015 Ot 786.05 01/31/2015 Ot 791.9 01/31/2015 Ot 794.39 01/31/2015 Ot V72.63 01/31/2015 Ot V72.81 01/31/2015 Ot 288.59 01/31/2015 Ot V76.12 01/31/2015 Ot V72.84 01/31/2015 Ot 793.80 01/31/2015 Ot 611.72 01/31/2015 Ot 287.5 01/31/2015 Ot 288.00 01/31/2015 TABBY WOODS SCREEN PRINTING INSPECTOR Ot 250.00 01/31/2015 TABBY WOODS SCREEN PRINTING INSPECTOR Ot 786.52 01/31/2015 TABBY WOODS SCREEN PRINTING INSPECTOR Ot 433.30 01/31/2015 TABBY WOODS SCREEN PRINTING INSPECTOR Ot 780.93 01/31/2015 KRISTEN DAHL, AMINATA Ot 455.0 01/31/2015 KRISTEN DAHL, AMINATA Ot 455.3 01/31/2015 KRISTEN DAHL, AMINATA Ot 530.11 01/31/2015 KRISTEN DAHL, AMINATA Ot 535.50 01/31/2015 KRISTEN DAHL, AMINATA Ot 553.3 01/31/2015 KRISTEN DAHL, AMINATA Ot 562.10 01/31/2015 KRISTEN DAHL, RAMAAAARAM Ot 569.0 01/31/2015 KRISTEN DAHL, AMINATA Ot V72.84 01/31/2015 BELINAD DAHL, SAMINA Duke Ot 571.5 01/31/2015 BELINDA DAHL, SAMINA Duke Ot 793.80 01/31/2015 BELINDA DAHL, SAMINA Duke Ot 789.00 02/20/2015 RAMIRO DAHL, DALLAS Harrison Ot E78.5 02/20/2015 DALLAS RUBIO MD Ot I10 02/20/2015 DALLAS RUBIO MD Ot I25.10 02/20/2015 DALLAS RUBIO MD Ot R07.89 09/28/2016 ADDY OZUNA A 564.00 CONSTIPATION, UNSPECIFIED 09/28/2016 ADDY OZUNA A K59.00 CONSTIPATION, UNSPECIFIED 11/30/2016 KALPANA JEAN MD Ot E03.9 HYPOTHYROIDISM, UNSPECIFIED 11/30/2016 KALPANA JEAN MD Ot E11.9 TYPE 2 DIABETES MELLITUS WITHOUT COMPLIC 11/30/2016 KALPANA JEAN MD Ot F32.9 MAJOR DEPRESSIVE DISORDER, SINGLE EPISOD 11/30/2016 KALPANA JEAN MD Ot F41.9 ANXIETY DISORDER, UNSPECIFIED 11/30/2016 KALPANA JEAN MD Ot M19.90 UNSPECIFIED OSTEOARTHRITIS, UNSPECIFIED 11/30/2016 KALPANA JEAN MD Ot N39.0 URINARY TRACT INFECTION, SITE NOT SPECIF 11/30/2016 KALPANA JEAN MD Ot R42 DIZZINESS AND GIDDINESS 11/30/2016 KALPANA JEAN MD Ot Z79.82 TREE DRILLER (CURRENT) USE OF ASPIRIN 11/30/2016 KALPANA JEAN MD Ot Z79.84 TREE DRILLER (CURRENT) USE OF ORAL HYPOGLYC 11/30/2016 KALPANA JEAN MD Ot Z82.49 FAMILY HX OF ISCHEM HEART DIS AND OTH DI 11/30/2016 KALPANA JEAN MD Ot Z87.19 PERSONAL HISTORY OF OTHER DISEASES OF 11/30/2016 Ot 288.59 OTHER DECREASED WHITE BLOOD CELL COUNT 11/30/2016 Ot V76.12 OTH SCREEN MAMMO-MALIGN NEOPLASM OF [place] 11/30/2016 Ot V72.84 EXAM PRE- OPERATIVE NOS 11/30/2016 Ot 793.80 UNSPEC ABNORMAL MAMMOGRAM 11/30/2016 Ot 611.72 LUMP OR MASS IN BREAST 11/30/2016 Ot 287.5 THROMBOCYTOPENIA NOS 11/30/2016 Ot 288.00 NEUTROPENIA , UNSPECIFIED 11/30/2016 TABBY WOODS Ot 250.00 DIAB K[place] WO COMPL, TYPE II OR UNSPEC TY 11/30/2016 TABBY WOODS Ot 786.52 PAINFUL RESPIRATION 11/30/2016 TABBY WOODS Ot 433.30 MULT BILTRAL ARTERY OCCLUSION WO CEREBRA 11/30/2016 CHUCK, TABBY SCREEN PRINTING INSPECTOR Ot 780.93 MEMORY LOSS 11/30/2016 AMINATA PETERSON MD Ot 455.0 INT HEMORRHOID W/O COMPL 11/30/2016 AMINATA PETERSON MD Ot 455.3 EXT HEMORRHOID W/O COMPL 11/30/2016 AMINATA PETERSON MD Ot 530.11 REFLUX ESOPHAGITIS 11/30/2016 AMINATA PETERSON MD Ot 535.50 UNSP GASTRITIS GASTRODUODENITIS W/O ME 11/30/2016 AMINATA PETERSON MD Ot 553.3 DIAPHRAGMATIC HERNIA 11/30/2016 AMINATA PETERSON MD Ot 562.10 DIVERTICULOSIS COLON (W/O MENT OF HEMORR 11/30/2016 AMINATA PETERSON MD Ot 569.0 ANAL RECTAL POLYP 11/30/2016 AMINATA PETERSON MD Ot V72.84 EXAM PRE-OPERATIVE NOS 11/30/2016 BELINDA DAHL, SAMINA Duke Ot 571.5 CIRRHOSIS OF LIVER NOS 11/30/2016 BELINDA DAHL, SAMINA Duke Ot 793.80 UNSPEC ABNORMAL MAMMOGRAM 11/30/2016 SAMINA TREVINO MD Ot 789.00 ABDOMINAL PAIN, UNSPECIFIED SITE 11/30/2016 DALLAS RUBIO MD Ot E78.5 HYPERLIPIDEMIA, UNSPECIFIED 11/30/2016 DALLAS RUBIO MD Ot I10 ESSENTIAL (PRIMARY) HYPERTENSION 11/30/2016 DALLAS RUBIO MD Ot I25.10 ATHSCL HEART DISEASE OF [place] CORONARY 11/30/2016 DALLAS RUBIO MD Ot R07.89 OTHER CHEST PAIN 12/03/2016 TED DAHL, KALPANA Harrison Ot E03.9 HYPOTHYROIDISM, UNSPECIFIED 12/03/2016 TED DAHL, KALPANA Harrison Ot E11.9 TYPE 2 DIABETES MELLITUS WITHOUT COMPLIC 12/03/2016 TED DAHL, KALPANA Harrison Ot F32.9 MAJOR DEPRESSIVE DISORDER, SINGLE EPISOD 12/03/2016 KALPANA JEAN MD Ot F41.9 ANXIETY DISORDER, UNSPECIFIED 12/03/2016 KALPANA JEAN MD Ot M19.90 UNSPECIFIED OSTEOARTHRITIS, UNSPECIFIED 12/03/2016 KALPANA JAEN MD Ot N39.0 URINARY TRACT INFECTION, SITE NOT SPECIF 12/03/2016 KALPANA JEAN MD Ot R42 DIZZINESS AND GIDDINESS 12/03/2016 KALPANA JEAN MD Ot Z79.82 INTERMEDIATE (CURRENT) USE OF ASPIRIN 12/03/2016 KALPANA JEAN MD Ot Z79.84 INTERMEDIATE (CURRENT) USE OF ORAL HYPOGLYC 12/03/2016 KALPANA JEAN MD Ot Z82.49 FAMILY HX OF ISCHEM HEART DIS AND OTH DI 12/03/2016 KALPANA JEAN MD Ot Z87.19 PERSONAL HISTORY OF OTHER DISEASES OF TH 01/07/2017 DALLAS RUBIO MD Ot E78.5 HYPERLIPIDEMIA, UNSPECIFIED 01/07/2017 DALLAS RUBIO MD Ot I10 ESSENTIAL (PRIMARY) HYPERTENSION 01/07/2017 DALLAS RUBIO MD Ot I25.10 ATHSCL HEART DISEASE OF [place] CORONARY 01/07/2017 DALLAS RUBIO MD Ot R00.2 PALPITATIONS 01/07/2017 DALLAS RUBIO MD Ot R07.89 OTHER CHEST PAIN 01/12/2017 DALLAS RUBIO MD Ot E78.5 HYPERLIPIDEMIA, UNSPECIFIED 01/12/2017 DALLAS RUBIO MD Ot I10 ESSENTIAL (PRIMARY) HYPERTENSION 01/12/2017 DALLAS RUBIO MD Ot I25.10 ATHSCL HEART DISEASE OF [place] CORONARY 01/12/2017 DALLAS RUBIO MD Ot R00.2 PALPITATIONS 01/12/2017 DLALAS RUBIO MD Ot R07.89 OTHER CHEST PAIN 01/19/2017 Walter Estrella 571.8 OTHER CHRONIC NONALCOHOLIC LIVER DISEASE 01/19/2017 Walter Estrella 922.1 CONTUSION OF CHEST WALL 01/19/2017 Walter Estrella W 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) 01/19/2017 Walter Estrella S20.211A CONTUSION OF RIGHT FRONT WALL OF THORAX, INITIAL ENCOUNTER 01/28/2017 DALLAS RUBIO MD Ot E78.5 HYPERLIPIDEMIA, UNSPECIFIED 01/28/2017 DALLAS RUBIO MD Ot I10 ESSENTIAL (PRIMARY) HYPERTENSION 01/28/2017 DALLAS RUBIO MD Ot I25.10 ATHSCL HEART DISEASE OF [place] CORONARY 01/28/2017 DALLAS RUBIO MD Ot R00.2 PALPITATIONS 01/28/2017 DALLAS RUBIO MD Ot R07.89 OTHER CHEST PAIN 02/07/2017 KALPANA JEAN MD Ot E03.9 HYPOTHYROIDISM, UNSPECIFIED 02/07/2017 KALPANA JEAN MD Ot E11.9 TYPE 2 DIABETES MELLITUS WITHOUT COMPLIC 02/07/2017 KALPANA JEAN MD Ot F32.9 MAJOR DEPRESSIVE DISORDER, SINGLE EPISOD 02/07/2017 KALPANA JEAN MD Ot F41.9 ANXIETY DISORDER, UNSPECIFIED 02/07/2017 KALPANA JEAN MD Ot M19.90 UNSPECIFIED OSTEOARTHRITIS, UNSPECIFIED 02/07/2017 KALPANA JEAN MD Ot N39.0 URINARY TRACT INFECTION, SITE NOT SPECIF 02/07/2017 KALPANA JEAN MD Ot R42 DIZZINESS AND GIDDINESS 02/07/2017 KALPANA JEAN MD Ot Z79.82 INTERMEDIATE (CURRENT) USE OF ASPIRIN 02/07/2017 KALPANA JEAN MD Ot Z79.84 INTERMEDIATE (CURRENT) USE OF ORAL HYPOGLYC 02/07/2017 KALPANA JEAN MD Ot Z82.49 FAMILY HX OF ISCHEM HEART DIS AND OTH DI 02/07/2017 KALPANA JEAN MD Ot Z87.19 PERSONAL HISTORY OF OTHER DISEASES OF TH 02/08/2017 DALLAS RUBIO MD Ot E78.5 HYPERLIPIDEMIA, UNSPECIFIED 02/08/2017 DALLAS RUBIO MD Ot I10 ESSENTIAL (PRIMARY) HYPERTENSION 02/08/2017 DALLAS RUBIO MD Ot I25.10 ATHSCL HEART DISEASE OF [place] CORONARY 02/08/2017 DALLAS RUBIO MD Ot R00.2 PALPITATIONS 02/08/2017 DALLAS RUBIO MD Ot R07.89 OTHER CHEST PAIN 04/27/2017 DERRELL MONROY Ot D72.819 DECREASED WHITE BLOOD CELL COUNT, UNSPEC 04/27/2017 DERRELL MONROY Ot E78.5 HYPERLIPIDEMIA, UNSPECIFIED 04/27/2017 DERRELL MONROY Ot I10 ESSENTIAL (PRIMARY) HYPERTENSION 04/27/2017 DERRELL MONROY Ot R00.2 PALPITATIONS 04/27/2017 DERRELL MONROY Ot Z79.899 OTHER INTERMEDIATE (CURRENT) DRUG THERAPY 06/21/2017 DERRELL MONROY Ot D72.819 DECREASED WHITE BLOOD CELL COUNT, UNSPEC 06/21/2017 ELIANADERRELL N Ot E78.5 HYPERLIPIDEMIA, UNSPECIFIED 06/21/2017 ELIANA, BOBAN N Ot I10 ESSENTIAL (PRIMARY) HYPERTENSION 06/21/2017 ELIANA, BOBAN N Ot R00.2 PALPITATIONS 06/21/2017 ELIANA, BOBAN N Ot Z79.899 OTHER TREE DRILLER (CURRENT) DRUG THERAPY 06/29/2017 ELIANA, BOBAN N Ot D72.819 DECREASED WHITE BLOOD CELL COUNT, UNSPEC 06/29/2017 ELIANA BOBAN N Ot E78.5 HYPERLIPIDEMIA, UNSPECIFIED 06/29/2017 ELIANA, BOBAN N Ot I10 ESSENTIAL (PRIMARY) HYPERTENSION 06/29/2017 ELIANA, BOBAN N Ot R00.2 PALPITATIONS 06/29/2017 ELIANA, BOBAN N Ot Z79.899 OTHER INTERMEDIATE (CURRENT) DRUG THERAPY 07/25/2017 ELIANA, BOBAN N Ot D72.819 DECREASED WHITE BLOOD CELL COUNT, UNSPEC 07/25/2017 ELIANA BOBKRISTINE N Ot E78.5 HYPERLIPIDEMIA, UNSPECIFIED 07/25/2017 ELIANA, BOBAN N Ot I10 ESSENTIAL (PRIMARY) HYPERTENSION 07/25/2017 ELIANA, BOBAN N Ot R00.2 PALPITATIONS 07/25/2017 ELIANA, BOBAN N Ot Z79.899 OTHER INTERMEDIATE (CURRENT) DRUG THERAPY 07/26/2017 ELIANA, BOBKRISTINE N Ot D72.819 DECREASED WHITE BLOOD CELL COUNT, UNSPEC 07/26/2017 ELIANA, BOBAN N Ot E78.5 HYPERLIPIDEMIA, UNSPECIFIED 07/26/2017 ELIANA, BOBAN N Ot I10 ESSENTIAL (PRIMARY) HYPERTENSION 07/26/2017 ELIANA, BOBAN N Ot R00.2 PALPITATIONS 07/26/2017 ELIANA, BOBAN N Ot Z79.899 OTHER INTERMEDIATE (CURRENT) DRUG THERAPY 11/20/2017 Julita Madrid A W 285.9 ANEMIA, UNSPECIFIED 11/20/2017AugustMadridJulita boss A W 571.5 CIRRHOSIS OF LIVER WITHOUT MENTION OF ALCOHOL 11/20/2017 Julita Madrid A W 584.9 ACUTE KIDNEY FAILURE, UNSPECIFIED 11/20/2017 Julita Madrid A W 599.0 URINARY TRACT INFECTION, SITE NOT SPECIFIED 11/20/2017 Julita Madrid A A 820.00 FRACTURE OF UNSPECIFIED INTRACAPSULAR SECTION OF NECK OF FEMUR, CLOSED 11/20/2017 Julita Madrid W D64.9 ANEMIA, UNSPECIFIED 11/20/2017 Julita Madrid W K74.60 UNSPECIFIED CIRRHOSIS OF LIVER 11/20/2017 Julita Madrid N17.9 ACUTE KIDNEY FAILURE, UNSPECIFIED 11/20/2017 Julita Madrid W N39.0 URINARY TRACT INFECTION, SITE NOT SPECIFIED 11/20/2017 Julita Madrid S72.012A UNSP INTRACAPSULAR FRACTURE OF LEFT FEMUR, INIT FOR CLOS FX Procedures Code Description [place] [address] A1C (IN-HOUSE) 07/04/2012 36902 ROUTINE VENIPUNCTURE 07/04/2012 81273 MICRO ALBUMIN-IN HOUSE 07/04/2012 77028 CMP 07/04/2012 44377 LIPID PANEL 07/04/2012 4444634 GFR CALC (RESULT ONLY) 07/04/2012 65158 CBC 07/04/2012 81577 TSH 07/04/2012 41146 XRAY CHEST 2 VIEW 01/26/2013 94766 MICRO ALBUMIN-IN HOUSE 01/26/2013 72352 A1C (IN-HOUSE) 01/26/2013 75146 US CAROTID DOPPLER 03/15/2013 80823 ROUTINE VENIPUNCTURE 04/04/2013 39652 CMP 04/04/2013 65006 LIPID PANEL 04/04/2013 94034 MAGNESIUM 04/04/2013 [id number] GFR CALC (RESULT ONLY) 04/04/2013 30468 TSH 04/04/2013 94308 CBC 04/04/2013 Results Test Result Range Complete blood count (CBC) with automated white blood cell (WBC) differential - 11/30/16 17:42 Blood leukocytes automated count (number/volume) 3.1 10*3/uL 4.3-11.0 Blood erythrocytes automated count (number/volume) 3.03 10*6/uL 4.35-5.85 Venous blood hemoglobin measurement (mass/volume) 10.6 g/dL 11.5-16.0 Blood hematocrit (volume fraction) 31 % 35-52 Automated erythrocyte mean corpuscular volume 103 [foz_us] 80-99 Automated erythrocyte mean corpuscular hemoglobin (mass per erythrocyte) 35 pg 25-34 Automated erythrocyte mean corpuscular hemoglobin concentration measurement ( mass/volume) 34 g/dL 32-36 Automated erythrocyte distribution width ratio 12.9 % 10.0-14.5 Automated blood platelet count (count/volume) 86 10*3/uL 130-400 Automated blood platelet mean volume measurement 10.6 [foz_us] 7.4-10.4 Automated blood neutrophils/100 leukocytes 52 % 42-75 Automated blood lymphocytes/100 leukocytes 26 % 12-44 Blood monocytes/100 leukocytes 14 % 0-12 Automated blood eosinophils/100 leukocytes 7 % 0-10 Automated blood basophils/100 leukocytes 1 % 0-10 Blood neutrophils automated count (number/volume) 1.6 10*3 1.8-7.8 Blood lymphocytes automated count (number/volume) 0.8 10*3 1.0-4.0 Blood monocytes automated count (number/volume) 0.4 10*3 0.0-1.0 Automated eosinophil count 0.2 10*3/uL 0.0-0.3 Automated blood basophil count (count/volume) 0.0 10*3/uL 0.0-0.1 PT panel in platelet poor plasma by coagulation assay - 11/30/16 17:42 Prothrombin time (PT) in platelet poor plasma by coagulation assay 13.7 s 12.2-14.7 INR in platelet poor plasma or blood by coagulation assay 1.1 0.8-1.4 Comprehensive metabolic panel - 11/30/16 17:42 Serum or plasma sodium measurement (moles/volume) 139 mmol/L 135-145 Serum or plasma potassium measurement (moles/volume) 3.7 mmol/L 3.6-5.0 Serum or plasma chloride measurement (moles/volume) 105 mmol/L 98-107 Carbon dioxide 24 mmol/L 21-32 Serum or plasma anion gap determination (moles/volume) 10 mmol/L 5-14 Serum or plasma urea nitrogen measurement (mass/volume) 12 mg/dL 7-18 Serum or plasma creatinine measurement (mass/volume) 0.85 mg/dL 0.60-1.30 Serum or plasma urea nitrogen/creatinine mass ratio 14 NRG Serum or plasma creatinine measurement with calculation of estimated glomerular filtration rate > NRG Serum or plasma glucose measurement (mass/volume) 164 mg/dL 70-105 Serum or plasma calcium measurement (mass/volume) 8.7 mg/dL 8.5-10.1 Serum or plasma total bilirubin measurement (mass/volume) 1.8 mg/dL 0.1-1.0 Serum or plasma alkaline phosphatase measurement (enzymatic activity/volume) 215 U/L 40-136 Serum or plasma aspartate aminotransferase measurement (enzymatic activity/ volume) 25 U/L 5-34 Serum or plasma alanine aminotransferase measurement (enzymatic activity/volume ) 11 U/L 0-55 Serum or plasma protein measurement (mass/volume) 7.0 g/dL 6.4-8.2 Serum or plasma albumin measurement (mass/volume) 3.0 g/dL 3.2-4.5 Serum or plasma troponin i.cardiac measurement (mass/volume) - 11/30/16 17:42 Serum or plasma troponin i.cardiac measurement (mass/volume) < ng/ mL <0.30 Lipase - 11/30/16 17:42 Lipase 37 U/L 8-78 Ammonia - 11/30/16 17:42 Ammonia 43 umol/L 11-32 Serum or plasma lithium measurement (moles/volume) - 11/30/16 17:42 BNP level 158.7 pg/mL <100.0 Capillary blood glucose measurement by glucometer (mass/volume) - 11/30/16 17: 48 Capillary blood glucose measurement by glucometer (mass/volume) 168 mg/dL 70-110 Complete urinalysis with reflex to culture - 11/30/16 18:38 Urine color determination YELLOW NRG Urine clarity determination SLIGHTLY CLOUDY NRG Urine pH measurement by test strip 5 5-9 Specific gravity of urine by test strip 1.025 1.016- 1.022 Urine protein assay by test strip, semi-quantitative 2+ NEGATIVE Urine glucose detection by automated test strip NEGATIVE NEGATIVE Erythrocytes detection in urine sediment by light microscopy 1+ NEGATIVE Urine ketones detection by automated test strip 1+ NEGATIVE Urine nitrite detection by test strip POSITIVE NEGATIVE Urine total bilirubin detection by test strip 2+ NEGATIVE Urine urobilinogen measurement by automated test strip (mass/volume) 4 mg/dL NORMAL Urine leukocyte esterase detection by dipstick 2+ NEGATIVE Automated urine sediment erythrocyte count by microscopy (number/high power field) [HPF] NRG Automated urine sediment leukocyte count by microscopy (number/high power field ) [HPF] NRG Bacteria detection in urine sediment by light microscopy LARGE NRG Squamous epithelial cells detection in urine sediment by light microscopy 10-25 NRG Crystals detection in urine sediment by light microscopy NONE NRG Casts detection in urine sediment by light microscopy NONE NRG Mucus detection in urine sediment by light microscopy LARGE NRG Complete urinalysis with reflex to culture YES NRG Bacterial urine culture - 11/30/16 18:38 Bacterial urine culture [id number] NRG COLONY COUNT >100,000/ML NRG FTX;REPORTABLE SENSITIVITY REPORTED 12/02/16 8:45 NRG FREE TEXT ENTRY 2 PLUS, NRG FREE TEXT ENTRY 3 MIXED GRAM POSITIVES <10,000/ML NR Bacterial susceptibility panel - 11/30/16 18:38 Gentamicin susceptibility test by minimum inhibitory concentration < = NRG Trimethoprim/sulfamethoxazole susceptibility test by minimum inhibitoryconcentration <= NRG Ampicillin susceptibility test by minimum inhibitory concentration < = NRG Tobramycin susceptibility test by minimum inhibitory concentration < = NRG Cefazolin susceptibility test by minimum inhibitory concentration < = NRG Ceftriaxone susceptibility test by minimum inhibitory concentration <= NRG Ampicillin/sulbactam susceptibility test by minimum inhibitory concentration <= NRG Piperacillin/tazobactam susceptibility test by minimum inhibitory concentration <= NRG Ciprofloxacin susceptibility test by minimum inhibitory concentration <= NRG Meropenem susceptibility test by minimum inhibitory concentration < = NRG Nitrofurantoin susceptibility test by minimum inhibitory concentration <= NRG Aztreonam susceptibility test by minimum inhibitory concentration < = NRG Extended spectrum beta lactamase (ESBL) producing bacteria susceptibility test by minimum inhibitory concentration - [facility] Protime - 01/19/17 09:19 INR 1.1 1.0-4.0 Protime 12.3 Sec 9.9-12.8 VIT B-12 - 11/20/17 06:11 Vitamin B12 658.00 pg/mL 213.00-816.00 Folate - 11/20/17 06:11 Folate 7.50 ng/mL 7.00-31.40 Urinalysis - 11/20/17 06:25 Icotest N/A Negative Urine Volume Urine Volume Sufficient (10mL) Urine-Appearance Slightly Cloudy Clear Urine-Bacteria 4+ Urine-Bilirubin Negative Negative Urine-Blood Negative Negative Urine-Color Yellow Colorless-Lt. Yellow Urine-Epithelial Cells TNTC Urine-Glucose Negative Negative Urine-Ketones Negative Negative Urine-Leukocytes Negative Negative Urine-Nitrite Negative Negative Urine-Other Culture to follow; cath urine sample. Urine-pH 6.0 5-8.5 Urine-Protein Negative Negative Urine-RBC 0-2/HPF Urine-Specific [place] 1.015 1.000-1.030 Urine-WBC 0-2/HPF Urobilinogen 1.0 0.2-1.0 TYPE/SCREEN - 11/20/17 06:25 ABO/RH A POSITIVE ANTIBODY SCREEN NEGATIVE Urine Culture - 11/20/17 07:00 FINAL CULTURE RESULTS >100,000 [id number] Skin Contaminant [id number] Further Workup done MEDIA PLATED Setup at 07:02 on 11/20/2017 CULTURE SOURCE cath urine Encounters ACCT No. Visit Date/Time Discharge Status Pt. Type Provider Facility Loc./Unit Complaint [id number] 04/04/2013 08:24:00 04/04/2013 23:59:59 CLS Outpatient TABBY WOODS APRN [id number] 03/15/2013 15:25:00 03/15/2013 23:59:59 CLS Outpatient TABBY WOODS APRN [id number] 01/26/2013 15:57:00 01/26/2013 23:59:59 CLS Outpatient TABBY WOODS APRN [id number] 07/04/2012 08:16:00 07/04/2012 23:59:59 CLS Outpatient TABBY WOODS APRN [id number] 11/20/2017 04:25:00 11/20/2017 08:25:00 DIS Outpatient Julita [facility] ER [id number] 01/19/2017 08:35:00 01/19/2017 10:50:00 DIS Outpatient [facility] [id number] 09/27/2016 22:39:00 09/28/2016 01:15:00 DIS Outpatient [facility] [id number] 09/28/2016 00:41:45 Document Registration [id number] 07/26/2017 00:41:00 07/26/2017 23:59:59 CLS Preadmit DERRELL MONROY [facility] ONC [id number] 05/27/2017 14:22:00 07/25/2017 00:01:00 DIS Outpatient DERRELL MONROY [facility] ONC [id number] 01/06/2017 07:54:00 01/06/2017 23:59:59 CLS Outpatient DALLAS RUBIO MD [facility] CARD I25.10 [id number] 11/30/2016 17:09:00 11/30/2016 20:02:00 DIS Outpatient KALPANA JEAN MD [facility] ER DISORIENTATION,SWEATY [id number] 01/31/2015 13:51:00 01/31/2015 23:59:59 CLS Outpatient DALLAS RUBIO MD [facility] CARD CAD, CP, HTN, HLD [id number] 04/26/2014 14:39:00 04/26/2014 16:23:00 DIS Emergency BRANDON DAHL, CATA Gaona [facility] ER ABD PAIN/SWELLING [id number] 03/29/2014 13:24:00 03/29/2014 23:59:59 CLS Outpatient SAMINA TREVINO MD [facility] RAD ABD PAIN [id number] 03/29/2014 11:12:00 03/29/2014 23:59:59 CLS Outpatient SAMINA TREVINO MD [facility] RAD ABNORMAL MAMMO [id number] 02/22/2014 08:56:00 02/22/2014 23:59:59 CLS Outpatient SAMINA TREVINO MD [facility] RAD INCREASED BILIRUBIN, ABN LIVER FUNCTION [id number] 09/22/2013 08:52:00 09/22/2013 23:59:59 CLS Outpatient AMINATA PETERSON MD [facility] SDC ABDOMINAL PAIN [id number] 09/20/2013 07:14:00 09/20/2013 23:59:59 CLS Outpatient AMINATA PETERSON MD [facility] PREOP ABDOMINAL PAIN [id number] 09/06/2013 21:05:00 09/07/2013 13:15:00 DIS Inpatient SAMINA TREVINO MD [facility] 4TH ACUTE COLITIS, ABD PAIN, UTI, LEUKOPENIA [id number] 03/22/2013 13:01:00 03/22/2013 23:59:59 CLS Outpatient TABBY WOODS [facility] RAD MEMORY LOSS [id number] 01/26/2013 17:07:00 01/26/2013 23:59:59 CLS Outpatient TABBY WOODSP [facility] RAD CHEST WALL PAIN [id number] 11/22/2012 10:06:00 11/28/2012 00:01:00 DIS Outpatient BAKARI FOX MD [facility] ONC [id number] 06/08/2013 00:00:00 Document Registration [id number] 05/25/2012 09:00:00 Document Registration [id number] 05/24/2012 10:44:00 Document Registration [id number] 05/23/2012 08:50:00 Document Registration [id number] 05/17/2012 14:58:00 Document Registration [id number] 05/12/2012 08:14:00 Document Registration [id number] 04/25/2012 10:55:00 Document Registration [id number] 03/16/2012 11:08:00 Document Registration [id number] 04/01/2011 05:31:00 Document Registration [id number] 03/31/2011 08:31:00 Document Registration
[2017-12-15] MEDS ORDERED: PANTOPRAZOLE 40 MG (PROTONIX) VIAL IV ONE (11:30)
[2017-12-15 11:51] LABS: BASOPHILS % (AUTO) 0 % (0-10); EOSINOPHILS # (AUTO) 0.1 10^3/uL (0.0-0.3); EOSINOPHILS % (AUTO) 1 % (0-10); HEMATOCRIT 27 % (35-52); HEMOGLOBIN 9.1 G/DL (11.5-16.0); LYMPHOCYTES # (AUTO) 0.5 X 10^3 (1.0-4.0); LYMPHOCYTES % (AUTO) 8 % (12-44); MEAN CORPUSCULAR HEMOGLOBIN 34 PG (25-34); MEAN CORPUSCULAR HGB CONC 33 G/DL (32-36); MEAN CORPUSCULAR VOLUME 103 FL (80-99); MEAN PLATELET VOLUME 10.7 FL (7.4-10.4); MONOCYTES % (AUTO) 17 % (0-12); NEUTROPHILS # (AUTO) 4.4 X 10^3 (1.8-7.8); NEUTROPHILS % (AUTO) 75 % (42-75); PLATELET COUNT 108 10^3/uL (130-400); RED BLOOD COUNT 2.66 10^6/uL (4.35-5.85); RED CELL DISTRIBUTION WIDTH 19.4 % (10.0-14.5); WHITE BLOOD COUNT 5.9 10^3/uL (4.3-11.0)
[2017-12-15 12:11] LABS: INR 4.6 (0.8-1.4); PROTHROMBIN TIME PATIENT 43.8 SEC (12.2-14.7)
[2017-12-15 12:12] LABS: ALBUMIN 2.2 GM/DL (3.2-4.5); BILIRUBIN,TOTAL 2.6 MG/DL (0.1-1.0); CALCIUM 9.4 MG/DL (8.5-10.1); CREATININE SERUM 1.73 MG/DL (0.60-1.30); POTASSIUM 3.3 MMOL/L (3.6-5.0); TOTAL PROTEIN 6.1 GM/DL (6.4-8.2)
--- NOTE | 2017-12-15 12:14 | Diagnostic Imaging Report ---
INDICATION: Recent hip surgery. Chest pain. COMPARISON: 11/30/2016 FINDINGS: Single frontal radiographic view of the chest demonstrates normal cardiac silhouette and pulmonary vasculature, accounting for moderate rotation. There is persistent asymmetric elevation of the right hemidiaphragm. There is no new focal consolidation, large effusion, nor pneumothorax. IMPRESSION: 1. Persistent asymmetric elevation of the right hemidiaphragm, but otherwise no acute cardiopulmonary process. Dictated by: Dictated on workstation # [id number]
[2017-12-15 12:19] LABS: BILIRUBIN,URINE NEGATIVE (NEGATIVE); CLARITY,URINE CLEAR; COLOR,URINE YELLOW; GLUCOSE, URINE (UA) NEGATIVE (NEGATIVE); KETONES,URINE NEGATIVE (NEGATIVE); LEUKOCYTE ESTERASE ,URINE 1+ (NEGATIVE); NITRITE,URINE NEGATIVE (NEGATIVE); PH,URINE 5 (5-9); PROTEIN,URINE 2+ (NEGATIVE); UROBILINOGEN,URINE 1 MG/DL (NORMAL)
[2017-12-15 12:28] LABS: BACTERIA,URINE LARGE /HPF; SQUAMOUS EPITHELIAL CELL,UR 0-2 /HPF; WBC,URINE 0-2 /HPF
[2017-12-15 12:36] LABS: FREE T4 (FREE THYROXINE) 1.1 NG/DL (0.70-1.48)
[2017-12-15] MEDS ORDERED: PHYTONADIONE (ADULT) INJECTION 10 MG in NS (IVPB) 50 ML IV ONE (13:00)
[2017-12-15] MEDS ORDERED: PHYTONADIONE (ADULT) INJECTION 5 MG in NS (IVPB) 50 ML IV NR (13:00)
[2017-12-15] MEDS ORDERED: NS IV NR (13:00)
[2017-12-15] MEDS ORDERED: PHYTONADIONE IV NR (13:00)
[2017-12-15] MEDS ORDERED: FURO20TA4 PO (13:44)
[2017-12-15] MEDS ORDERED: ROSU20TA PO (13:44)
[2017-12-15] MEDS ORDERED: RIVA10TA PO (13:44)
[2017-12-15] MEDS ORDERED: GLIP5TAB13 PO (13:44)
[2017-12-15] MEDS ORDERED: LEVO50TA6 PO (13:44)
[2017-12-15] MEDS ORDERED: ESCI20TA45 PO (13:44)
[2017-12-15] MEDS ORDERED: SPIR100T4 PO (13:44)
[2017-12-15] MEDS ORDERED: CALC600T80 PO (13:44)
[2017-12-15] MEDS ORDERED: FLDR.1T PO (13:44)
--- NOTE | 2017-12-15 13:50 | Consultation ---
History of Present Illness History of Present Illness Patient Consulted On(sumi/time) 12/15/17 13:46 Date Seen by Provider: Dec 15, 2017 Time Seen by Provider: 12:30 Reason for Visit: Rectal bledding History of Present Illness Post-joint replacement, on anti-coagulants and aspring, recovering at a local custodial, brought in with rectal bleeding Allergies and Home Medications Allergies Coded Allergies: hydroxyzine (Unverified Adverse Reaction, Intermediate, ALTERED MENTAL STATUS, 09/06/13) Penicillins (Unverified Adverse Reaction, Unknown, 09/06/13) Home Medications Calcium Carbonate 600 Mg Tablet, 600 MG PO DAILY, (Reported) Escitalopram Oxalate 20 Mg Tablet, 20 MG PO DAILY, (Reported) Fludrocortisone Acetate 0.1 Mg Tab, 0.1 MG PO DAILY, (Reported) Furosemide 20 Mg Tablet, 20 MG PO DAILY, (Reported) Glipizide 5 Mg Tablet, 5 MG PO DAILY, (Reported) Levothyroxine Sodium 50 Mcg Tablet, 50 MCG PO DAILY, (Reported) Rivaroxaban 10 Mg Tablet, 10 MG PO DAILY, (Reported) Rosuvastatin Calcium 20 Mg Tablet, 20 MG PO HS, (Reported) Spironolactone 100 Mg Tablet, 100 MG PO DAILY, (Reported) Patient Home Medication List Home Medication List Reviewed: Yes Past Lyefyrz-Qvqkvm-Lcwcdg Hx Patient Social History Alcohol Use: Denies Use Recreational Drug Use: No 2nd Hand Smoke Exposure: Yes Recent Foreign Travel: No Contact w/Someone Who Travel: No Recent Infectious Disease Expo: No Recent Hopitalizations: Yes (pt had hip surgery November 19, 2017) Physical Abuse: No Sexual Abuse: No Past Medical History Surgeries: Yes (VENTRAL HERNIA REPAIR, GANGLION ON HANDS, hip) Gallbladder, Orthopedic Respiratory: No Cardiac: Yes (SMALL ANEURYSM) High Cholesterol, Irregular Heartbeat Neurological: No Reproductive Disorders: No Genitourinary: No Gastrointestinal: Yes (nonalcoholic steatohepatitis) Liver Disease/Jaundice, Diverticulosis, Cirrhosis Musculoskeletal: Yes Arthritis Endocrine: Yes Hypothyroidsim, Diabetes, Non-Insulin dep Cancer: No Psychosocial: Yes Anxiety, Depression Nursing Suicide Risk Score: 0 Integumentary: Yes Eczema Blood Disorders: No Adverse Reaction/Blood Tranf: No Family Medical History Cancer 19 MOTHER (LUNG CANCER) G8 SISTER (NON HODGKINS LYMPHOMA) Congenital heart disease 19 MOTHER Family history: Arthritis 19 FATHER 19 MOTHER G8 BROTHER G8 SISTER G8 SISTER G8 SISTER G8 SISTER G8 SISTER Family history: Cardiovascular disease 19 MOTHER Family history: Hypertension 19 MOTHER Heart disease 19 MOTHER Myocardial infarction G8 SISTER Stroke 19 FATHER 19 MOTHER Tuberculosis G8 SISTER No Family History of: Abdominal aortic aneurysm Isauro's disease Alcoholism Aphasia Cancer of colon Cataract Chest pain Congestive heart failure Cystic fibrosis Dementia Dysphagia Family history: Allergy Family history: Alzheimer's disease Family history: Asthma Family history: Breast disease Family history: Coronary thrombosis Family history: Diabetes mellitus Family history: Gastrointestinal disease Family history: Glaucoma Family history: Osteoporosis Family history: Thyroid disorder Headache Hearing loss Hereditary disease History of - anemia History of - disorder History of - respiratory disease History of drug abuse Human immunodeficiency virus (HIV) seropositivity Hypercholesterolemia Infertile Kidney disease Malignant neoplasm of lung Parkinson's disease Prostate cancer Psychotic disorder Seizure disorder Visual impairment Review of Systems-General Constitutional: weakness EENTM: no symptoms reported Respiratory: no symptoms reported Cardiovascular: no symptoms reported Gastrointestinal: see HPI Genitourinary: no symptoms reported Musculoskeletal: see HPI Skin: no symptoms reported Physical Exam-General Problems Physical Exam Vital Signs Vital Signs - First Documented 12/15/17 11:09 Temp 96.4 Pulse 88 Resp 13 B/P (MAP) 135/70 (91) Pulse Ox 95 O2 Delivery Room Air Capillary Refill : Less Than 3 Seconds General Appearance: no apparent distress Neck: normal inspection Respiratory: lungs clear Cardiovascular: regular rate, rhythm Gastrointestinal: non tender, soft Rectal: deferred Skin: warm/dry Assessment/Plan Assessment/Plan Admission Diagnosis/Plan Lady with rectal bleeding. Hepatic dysfunction with altered coagulation status. Decreased hemoglobin of 9.5. Will observe, transfuse if hb decreases to 8 and consider colonoscopy if bleeding persists. Vitamin K to help with coagulopathy Admission Status: Observation AKASH OLIVAS MD Dec 15, 2017 1:50 pm
--- NOTE | 2017-12-15 13:51 | Diagnostic Imaging Report ---
PROCEDURE: CT head without contrast. TECHNIQUE: Multiple contiguous axial images were obtained through the brain without the use of intravenous contrast. INDICATION: Decreased responsiveness. Hip surgery on November 24. COMPARISON: No prior examinations are available for comparison. FINDINGS: There is a substantial degree of relatively symmetric periventricular white matter hypoattenuation which is most often attributed to the sequelae of chronic small vessel disease. There is a mild degree of cerebral cortical atrophy without rachel hydrocephalus. There are no findings to suggest an evolving or recent ischemic infarct. There are no findings felt suggestive of focal or generalized cerebral edema. There is no hemorrhage and no mass or mass effect is found. The orbits, sinuses, and calvarium are nonacute. There are intracranial atherosclerotic vascular calcifications anteriorly and posteriorly. IMPRESSION: No hemorrhage, edema, or acute appearing finding. No features that would suggest CT evidence of a subacute or recent infarct. Chronic white matter disease, atrophy, and atherosclerosis are noted. Dictated by: Dictated on workstation # [id number]
[2017-12-15] MEDS: FLUDROCORTISONE 0.1 MG (FLORINEF) TAB PO SCH (14:14)
[2017-12-15] MEDS ORDERED: CATHETER FLUSH 10 ML SYR IV PRN (14:15)
--- NOTE | 2017-12-15 14:23 | History & Physical-Hospitalist ---
AJ AVENDAÑO MEDICAL STUDENT 12/15/17 1423: History of Present Illness HPI/Chief Complaint CC: Lethargy, blood in her stool HPI: Patient is a 77 year old female with a history of non-alcoholic steatohepatitis, thrombocytopenia, T2DM, hypothyroidism that had repair of left hip fracture on 11/19 on Xarelto since then that is admitted for dark stools x 3 days and worsening lethargy since her surgery. Has lived at [facility] since repair of her hip fracture, and she was admitted when stool was noted to be dark/rust colored and labs drawn there showed drop in Hgb from 11.5 on 12/09 to 9.1 on 12/15. Family members state that confusion is present at baseline, but this has worsened since her hip fracture has been repaired. Prior to her fracture, she was walking around and was talkative. Since the surgery, she has not been walking, talking, or feeding herself. She follows with Dr. Hall for her liver disease, last seen in October. She has had paracentesis 2-3 times in the past 2 years since the liver disease has worsened. Per family, she has never had endoscopy to evaluate for varices. Dr. Watson is her PCP. Source: family Exam Limitations: physical impairment Date Seen 12/15/17 Time Seen by Provider: 13:30 Attending Physician Rayne Rodriguez DO PCP Josse Watson MD Referring Physician Date of Admission Dec 15, 2017 at 11:50 Home Medications & Allergies Home Medications Reviewed patient Home Medication Reconciliation performed by pharmacy medication reconciliations formula technician and/or nursing. Patients Allergies have been reviewed. Allergies Allergies Coded Allergies hydroxyzine (Unverified Adverse Reaction, Intermediate, ALTERED MENTAL STATUS , 09/06/13) Penicillins (Unverified Adverse Reaction, Unknown, 09/06/13) Past Lflyomo-Yczhwk-Pzcmkf Hx Patient Social History Alcohol Use: Denies Use Recreational Drug Use: No 2nd Hand Smoke Exposure: Yes Recent Foreign Travel: No Contact w/other who traveled: No Recent Hopitalizations: Yes (pt had hip surgery November 19, 2017) Recent Infectious Disease Expo: No Past Medical History Surgeries: Gallbladder, Orthopedic Cardiac: High Cholesterol, Irregular Heartbeat Reproductive: No Gastrointestinal: Liver Disease/Jaundice, Diverticulosis, Cirrhosis Musculoskeletal: Arthritis Endocrine: Hypothyroidsim, Diabetes, Non-Insulin dep Psychosocial: Anxiety, Depression Skin/Integumentary: Eczema History of Blood Disorders: No Adverse Reaction to Blood Melo: No Family History Cancer 19 MOTHER (LUNG CANCER) G8 SISTER (NON HODGKINS LYMPHOMA) Congenital heart disease 19 MOTHER Family history: Arthritis 19 FATHER 19 MOTHER G8 BROTHER G8 SISTER G8 SISTER G8 SISTER G8 SISTER G8 SISTER Family history: Cardiovascular disease 19 MOTHER Family history: Hypertension 19 MOTHER Heart disease 19 MOTHER Myocardial infarction G8 SISTER Stroke 19 FATHER 19 MOTHER Tuberculosis G8 SISTER No Family History of: Abdominal aortic aneurysm Isauro's disease Alcoholism Aphasia Cancer of colon Cataract Chest pain Congestive heart failure Cystic fibrosis Dementia Dysphagia Family history: Allergy Family history: Alzheimer's disease Family history: Asthma Family history: Breast disease Family history: Coronary thrombosis Family history: Diabetes mellitus Family history: Gastrointestinal disease Family history: Glaucoma Family history: Osteoporosis Family history: Thyroid disorder Headache Hearing loss Hereditary disease History of - anemia History of - disorder History of - respiratory disease History of drug abuse Human immunodeficiency virus (HIV) seropositivity Hypercholesterolemia Infertile Kidney disease Malignant neoplasm of lung Parkinson's disease Prostate cancer Psychotic disorder Seizure disorder Visual impairment Review of Systems Constitutional: fever (Denies fever), other (Lethargy) EENTM: no symptoms reported Respiratory: cough, short of breath Gastrointestinal: hematemesis (No hematemsis), melena Genitourinary: other (Odorous urine) Physical Exam Physical Exam Vital Signs Vital Signs - First Documented 12/15/17 11:09 Temp 96.4 Pulse 88 Resp 13 B/P (MAP) 135/70 (91) Pulse Ox 95 O2 Delivery Room Air Capillary Refill : Less Than 3 Seconds Height, Weight, BMI Height: 5'4.00" Weight: 144lbs. 2.0oz. 65.566295ue; 29.18 BMI Method:Stated General Appearance: Other (Patient sleeping, does not participate in conversation.) Respiratory: Lungs Clear, Normal Breath Sounds, No Respiratory Distress Cardiovascular: Regular Rate, Rhythm, Systolic Murmur Gastrointestinal: Non Tender, Soft, Abnormal Bowel Sounds, Distended, Hepatomegaly Extremity: Normal Capillary Refill, Pedal Edema (2+ bilateral edema) Neurologic/Psychiatric: Other (Not alert or oriented) Skin: Normal Color, Warm/Dry, Other (Telangiectasias present over chest) Results Results/Procedures Labs Laboratory Tests 12/15/17 11:20 12/15/17 11:34 Patient resulted labs reviewed. Assessment/Plan Admission Diagnosis GI bleeding Lethargy Admission Status: Inpatient Order (span 2 midnights) Assessment and Plan Patient is a 77 year old female with history of non-alcohol steatohepatitis and thrombocytopenia presenting with melena, dropping hemoglobin, and lethargy. Admitted for GI bleed in the setting of elevated INR and also found to have a UTI and RAY vs hepatorenal syndrome. 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 RAY -NS @ maintenance Endocrine -Continue CAR ICER synthroid -Hold CAR ICER glyburide Critical Care Critically Ill Patient RAYNE RODRIGUEZ DO 12/15/17 8509: History of Present Illness HPI/Chief Complaint CC: AMS with bloody stools HPI: This is a patient of Dr Watson's who was recently admitted to [facility] for skilled care following a hip fracture repair at [place] who has had a significant decline since her recent hospital stay (requiring being fed, can't walk and can't talk) who presented to the ER w/declining hemoglobin with bloody stools. Pt sees Dr Solares regularly for ESLD and she had declined to be on liver transplant list and she is a DNR. Dr Urbina is consulted for GIB and she has remained stable and INR elevation has been treated with Vit K. I had a long talk with her daughter and she is aware of the poor prognosis and I update her on the end stage liver disease process that will likely not be recoverable. Source: family, RN/MD Exam Limitations: clinical condition Time Seen by Provider: 17:00 Home Medications & Allergies Home Medications Reviewed Past Zvydqqr-Zinqjx-Nsaeie Hx Past Med/Social Hx: Reviewed Nursing Past Med/Soc Hx, Reviewed and Corrections made Patient Social History Marrital Status: Employed/Student: retired Smoking Status: Unknown if Ever Smoked Past Medical History Surgeries: Gallbladder, Orthopedic Cardiac: High Cholesterol, Irregular Heartbeat Gastrointestinal: Liver Disease/Jaundice, Diverticulosis, Cirrhosis Musculoskeletal: Arthritis Endocrine: Hypothyroidsim, Diabetes, Non-Insulin dep Psychosocial: Anxiety Skin/Integumentary: Eczema Family History Cancer 19 MOTHER (LUNG CANCER) G8 SISTER (NON HODGKINS LYMPHOMA) Congenital heart disease 19 MOTHER Family history: Arthritis 19 FATHER 19 MOTHER G8 BROTHER G8 SISTER G8 SISTER G8 SISTER G8 SISTER G8 SISTER Family history: Cardiovascular disease 19 MOTHER Family history: Hypertension 19 MOTHER Heart disease 19 MOTHER Myocardial infarction G8 SISTER Stroke 19 FATHER 19 MOTHER Tuberculosis G8 SISTER No Family History of: Abdominal aortic aneurysm Gladwin's disease Alcoholism Aphasia Cancer of colon Cataract Chest pain Congestive heart failure Cystic fibrosis Dementia Dysphagia Family history: Allergy Family history: Alzheimer's disease Family history: Asthma Family history: Breast disease Family history: Coronary thrombosis Family history: Diabetes mellitus Family history: Gastrointestinal disease Family history: Glaucoma Family history: Osteoporosis Family history: Thyroid disorder Headache Hearing loss Hereditary disease History of - anemia History of - disorder History of - respiratory disease History of drug abuse Human immunodeficiency virus (HIV) seropositivity Hypercholesterolemia Infertile Kidney disease Malignant neoplasm of lung Parkinson's disease Prostate cancer Psychotic disorder Seizure disorder Visual impairment Review of Systems Constitutional: see HPI, dizziness, malaise, weakness EENTM: other (will not speak) Respiratory: short of breath Cardiovascular: edema Gastrointestinal: hematemesis (No hematemsis), loss of appetite, melena, nausea , vomiting Genitourinary: decreased output, other (Odorous urine) Musculoskeletal: joint pain Skin: no symptoms reported Psychiatric/Neurological: Weakness All Other Systems Reviewed Negative Unless Noted: Yes Physical Exam Physical Exam General Appearance: No Apparent Distress, WD/WN, Chronically ill, Obese, Other (unresponsive, jaundiced) Eyes: Bilateral Eye Normal Inspection, Bilateral Eye PERRL HEENT: PERRL/EOMI, Normal ENT Inspection, Pharynx Normal Neck: Full Range of Motion, Normal Inspection, Non Tender, Supple, Carotid Bruit Respiratory: Chest Non Tender, Lungs Clear, Normal Breath Sounds, No Accessory Muscle Use, No Respiratory Distress Cardiovascular: Regular Rate, Rhythm, No Edema, No Gallop, No JVD, No Murmur, Normal Peripheral Pulses Gastrointestinal: Abnormal Bowel Sounds, Distended, Hepatomegaly, Splenomegaly Back: Normal Inspection, No CVA Tenderness, No Vertebral Tenderness Extremity: Normal Capillary Refill, Normal Inspection, Normal Range of Motion, Non Tender, No Calf Tenderness, No Pedal Edema Neurologic/Psychiatric: Other (Not alert or oriented) Skin: Warm/Dry, Jaundice Lymphatic: No Adenopathy Assessment/Plan Admission Diagnosis Admission Status: Inpatient Order (span 2 midnights) Reason for Inpatient Admission: End stage liver disease with encephalopathy and GIB will need 3 midnight to stabilize Assessment and Plan Give Rocephin for UTI Lactulose DNR Monitor closely Pain control Poor prognosis palliative care consult Diagnosis/Problems Diagnosis/Problems (1) GI bleed Status: Acute (2) End stage liver disease Status: Acute (3) Cirrhosis Status: Chronic Qualifiers: Hepatic cirrhosis type: unspecified hepatic cirrhosis Ascites presence: with ascites Qualified Codes: K74.60 - Unspecified cirrhosis of liver; R18.8 - Other ascites (4) Encephalopathy Status: Acute (5) Increased ammonia level Status: Acute (6) Edema Status: Chronic Qualifiers: Edema type: unspecified Qualified Codes: R60.9 - Edema, unspecified (7) Elevated INR Status: Acute (8) Thrombocytopenia Status: Chronic (9) Anemia Status: Acute Qualifiers: Anemia type: unspecified type Qualified Codes: D64.9 - Anemia, unspecified (10) Hip fracture requiring operative repair Status: Resolved (11) Fector hepaticus Status: Acute (12) Urinary tract infection Status: Acute AJ AVENDAÑO MEDICAL STUDENT Dec 15, 2017 14:23 RAYNE RODRIGUEZ DO Dec 15, 2017 17:49
[2017-12-15] MEDS: NS IV 1000 ML 1,000 ML IV SCH (14:30)
[2017-12-15] MEDS ORDERED: fentaNYL INJECTION 100 MCG/2 ML AMP IVP PRN (17:15)
[2017-12-15] MEDS: cefTRIAXone FOR IV USE 1,000 MG in NS (IVPB) 50 ML IV SCH (18:18)
[2017-12-15] MEDS: LACTULOSE SYRUP 10GM/15ML (ENULOSE) 30ML UDC PO SCH (21:06)
[2017-12-16] VITALS (16 sets, daily range): BP systolic 92–123; BP diastolic 45–67
[2017-12-16] MEDS: NS IV 1000 ML 1,000 ML IV SCH ×4 (00:46→23:38)
[2017-12-16 03:34] LABS: BASOPHILS % (AUTO) 0 % (0-10); EOSINOPHILS # (AUTO) 0.1 10^3/uL (0.0-0.3); EOSINOPHILS % (AUTO) 2 % (0-10); HEMATOCRIT 25 % (35-52); HEMOGLOBIN 8.5 G/DL (11.5-16.0); LYMPHOCYTES # (AUTO) 0.7 X 10^3 (1.0-4.0); LYMPHOCYTES % (AUTO) 15 % (12-44); MEAN CORPUSCULAR HEMOGLOBIN 35 PG (25-34); MEAN CORPUSCULAR HGB CONC 34 G/DL (32-36); MEAN CORPUSCULAR VOLUME 103 FL (80-99); MEAN PLATELET VOLUME 9.8 FL (7.4-10.4); MONOCYTES # (AUTO) 0.8 X 10^3 (0.0-1.0); MONOCYTES % (AUTO) 16 % (0-12); NEUTROPHILS # (AUTO) 3.1 X 10^3 (1.8-7.8); NEUTROPHILS % (AUTO) 67 % (42-75); PLATELET COUNT 79 10^3/uL (130-400); RED BLOOD COUNT 2.44 10^6/uL (4.35-5.85); RED CELL DISTRIBUTION WIDTH 18.8 % (10.0-14.5); WHITE BLOOD COUNT 4.6 10^3/uL (4.3-11.0)
[2017-12-16 03:45] LABS: INR 2.7 (0.8-1.4); PROTHROMBIN TIME PATIENT 29.2 SEC (12.2-14.7)
[2017-12-16 03:48] LABS: ALBUMIN 2.1 GM/DL (3.2-4.5); BILIRUBIN,TOTAL 2.1 MG/DL (0.1-1.0); CALCIUM 8.6 MG/DL (8.5-10.1); CREATININE SERUM 1.66 MG/DL (0.60-1.30); MAGNESIUM 1.9 MG/DL (1.8-2.4); PHOSPHORUS 2.9 MG/DL (2.3-4.7); POTASSIUM 3.1 MMOL/L (3.6-5.0); TOTAL PROTEIN 5.6 GM/DL (6.4-8.2)
--- OUTSIDE RECORDS SUMMARY | 2017-12-16 04:38 | XMS REPORT | Continuity of Care Document ---
Author Author [facility] Address Unknown Phone Unavailable Allergies Active Description Code Type Severity Reaction Onset Reported/Identified Relationship to Patient Clinical Status Yes PENICILLINS UNKNOWN UNKNOWN Yes Penicillins Drug Allergy 07/04/2012 Yes Penicillins Drug Allergy N/A N/A 07/04/2012 Yes hydroxyzine [id number] Drug Allergy Moderate ALTERED MENTAL 09/06/2013 Yes Penicillins [id number] Drug Allergy Unknown N/A 09/06/2013 Medications Medication [...] 250.00 DIABETES MELLITUS TYPE 2 07/04/2012 CHUCK PROSECUTING ATTORNEY, TABBY S 272.4 HYPERLIPIDEMIA 07/04/2012 HCUCK PROSECUTING ATTORNEY, TABBY S 287.5 THROMBOCYTOPENIA 07/04/2012 CHUCK PERDOMO, TABBY S 300.4 DYSTHYMIC DISORDER 07/04/2012 CHUCK PROSECUTING ATTORNEY, TABBY S V70.0 EXAM - ROUTINE H&P 07/04/2012 CHUCK PROSECUTING ATTORNEY, TABBY S 244.9 HYPOTHYROIDISM 07/04/2012 CHUCK PERDOMO, TABBY S 250.00 DIABETES MELLITUS TYPE 2 07/04/2012 CHUCK PERDOMO, TABBY S 272.4 HYPERLIPIDEMIA 07/04/2012 CHUCK PERDOMO, TABBY S 287.5 THROMBOCYTOPENIA 07/04/2012 CHUCK PERDOMO, TABBY S 300.4 DYSTHYMIC DISORDER 07/04/2012 CHUCK PROSECUTING ATTORNEY, TABBY S V70.0 EXAM - ROUTINE H&P [...] Ot V58.69 OTH MED,LT,CURRENT USE 01/26/2013 CHUCK PROSECUTING ATTORNEY TABBY S 786.52 CHEST WALL PAIN 01/26/2013 CHUCK PROSECUTING ATTORNEY TABBY S 786.52 CHEST WALL PAIN 01/26/2013 CHUCK PROSECUTING ATTORNEY TABBY S 786.52 CHEST WALL PAIN 03/15/2013 CHUCK PROSECUTING ATTORNEY, TABBY S 780.93 MEMORY LOSS 03/15/2013 CHUCK PROSECUTING ATTORNEY, TABBY S 780.93 MEMORY LOSS 09/07/2013 SAMINA [...] 287.5 03/29/2014 Ot 288.00 03/29/2014 TABBY WOODS OFFICE CLINICIAN Ot 250.00 03/29/2014 TABBY WOODS OFFICE CLINICIAN Ot 786.52 03/29/2014 TABBY WOODS OFFICE CLINICIAN Ot 433.30 03/29/2014 TABBY WOODS OFFICE CLINICIAN Ot 780.93 03/29/2014 KRISTEN DAHL, AMINATA Ot [...] 287.5 01/31/2015 Ot 288.00 01/31/2015 TABBY WOODS OFFICE CLINICIAN Ot 250.00 01/31/2015 TABBY WOODS OFFICE CLINICIAN Ot 786.52 01/31/2015 TABBY WOODS OFFICE CLINICIAN Ot 433.30 01/31/2015 TABBY WOODS OFFICE CLINICIAN Ot 780.93 01/31/2015 KRISTEN DAHL, AMINATA Ot 455.0 01/31/2015 KRISTEN DAHL, AMINATA Ot 455.3 01/31/2015 KRISTEN DAHL, AMINATA Ot 530.11 01/31/2015 KRISTEN DAHL, AMINATA Ot 535.50 01/31/2015 KRISTEN DAHL, AMINATA Ot 553.3 01/31/2015 KRISTEN DAHL, AMINATA Ot 562.10 01/31/2015 KRISTEN DAHL, RAMAAAARAM Ot 569.0 01/31/2015 KRISTEN DAHL, AMINATA Ot V72.84 01/31/2015 BELINDA DAHL, SAMINA Duke Ot 571.5 01/31/2015 BELINDA [...] GIDDINESS 11/30/2016 KALPANA JEAN MD Ot Z79.82 CEMENT BLOCK MAKER (CURRENT) USE OF ASPIRIN 11/30/2016 KALPANA JEAN MD Ot Z79.84 CEMENT BLOCK MAKER (CURRENT) USE OF ORAL HYPOGLYC 11/30/2016 KALPANA [...] 11/30/2016 Ot 288.00 NEUTROPENIA , UNSPECIFIED 11/30/2016 ATBBY WOODS Ot 250.00 DIAB [place] WO COMPL, TYPE II OR UNSPEC TY 11/30/2016 TABBY WOODS Ot 786.52 PAINFUL RESPIRATION 11/30/2016 TABBY WOODS Ot 433.30 MULT BILTRAL ARTERY OCCLUSION WO CEREBRA 11/30/2016 CHUCK, TABBY OFFICE CLINICIAN Ot 780.93 MEMORY LOSS 11/30/2016 AMINATA PETERSON [...] MD Ot I25.10 ATHSCL HEART DISEASE OF [place] CORONARY 11/30/2016 DALLAS RUBIO MD Ot R07.89 [...] Ot M19.90 UNSPECIFIED OSTEOARTHRITIS, UNSPECIFIED 12/03/2016 KALPANA JEAN MD Ot N39.0 URINARY TRACT INFECTION, SITE NOT SPECIF 12/03/2016 KALPANA JEAN MD Ot R42 DIZZINESS AND GIDDINESS 12/03/2016 KALPANA JEAN MD Ot Z79.82 USP (CURRENT) USE OF ASPIRIN 12/03/2016 KALPANA JEAN MD Ot Z79.84 USP (CURRENT) USE OF ORAL HYPOGLYC 12/03/2016 KALPANA JEAN MD Ot Z82.49 FAMILY HX OF [place] HEART DIS AND OTH DI 12/03/2016 KALPANA JEAN MD Ot Z87.19 PERSONAL HISTORY OF OTHER DISEASES OF TH 01/07/2017 DALLAS RUBIO MD Ot E78.5 HYPERLIPIDEMIA, UNSPECIFIED 01/07/2017 DALLAS RUBIO MD Ot I10 ESSENTIAL (PRIMARY) HYPERTENSION 01/07/2017 DALLAS RUBIO MD Ot I25.10 ATHSCL HEART DISEASE OF [place] CORONARY 01/07/2017 DALLAS RUBIO MD Ot R00.2 PALPITATIONS 01/07/2017 DALLAS RUBIO MD Ot R07.89 OTHER CHEST PAIN 01/12/2017 DALLAS RUBIO MD Ot E78.5 HYPERLIPIDEMIA, UNSPECIFIED 01/12/2017 DALLAS RUBIO MD Ot I10 ESSENTIAL (PRIMARY) HYPERTENSION 01/12/2017 DALLAS RUBIO MD Ot I25.10 ATHSCL HEART DISEASE OF [place] CORONARY 01/12/2017 DALLAS RUBIO MD Ot R00.2 PALPITATIONS 01/12/2017 DALLAS RUBIO MD Ot R07.89 OTHER CHEST PAIN 01/19/2017 Walter Estrella 571.8 OTHER CHRONIC NONALCOHOLIC LIVER DISEASE 01/19/2017 Walter Estrella 922.1 CONTUSION OF CHEST WALL 01/19/2017 Walter Estrella W 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) 01/19/2017 Walter Estrella S20.211A CONTUSION OF RIGHT FRONT WALL OF [place]OR[place], INITIAL ENCOUNTER 01/28/2017 DLALAS RUBIO MD Ot E78.5 HYPERLIPIDEMIA, UNSPECIFIED 01/28/2017 DALLAS RUBIO MD Ot I10 ESSENTIAL (PRIMARY) HYPERTENSION 01/28/2017 DALLAS RUBIO MD Ot I25.10 ATHSCL HEART DISEASE OF [place] CORONARY 01/28/2017 DALLAS RUBIO MD Ot R00.2 [...] GIDDINESS 02/07/2017 KALPANA JEAN MD Ot Z79.82 USP (CURRENT) USE OF ASPIRIN 02/07/2017 KALPANA JEAN MD Ot Z79.84 USP (CURRENT) USE OF ORAL HYPOGLYC 02/07/2017 KALPANA JEAN MD Ot Z82.49 FAMILY HX OF I[place]HE[place] HEART DIS AND OTH DI 02/07/2017 KALPANA JEAN MD Ot Z87.19 PERSONAL HISTORY OF OTHER DISEASES OF TH 02/08/2017 DALLAS RBUIO MD Ot E78.5 HYPERLIPIDEMIA, UNSPECIFIED 02/08/2017 DALLAS RUBIO MD Ot I10 ESSENTIAL (PRIMARY) HYPERTENSION 02/08/2017 DALLAS RUBIO MD Ot I25.10 ATHSCL HEART DISEASE OF [place] CORONARY 02/08/2017 DALLAS RUBIO MD Ot R00.2 PALPITATIONS 02/08/2017 DALLAS RUBIO MD Ot R07.89 OTHER CHEST PAIN 04/27/2017 DERRELL MONROY Ot D72.819 DECREASED WHITE BLOOD CELL COUNT, UNSPEC 04/27/2017 DERRELL MONROY Ot E78.5 HYPERLIPIDEMIA, UNSPECIFIED 04/27/2017 DERRELL MONROY Ot I10 ESSENTIAL (PRIMARY) HYPERTENSION 04/27/2017 DERRELL MONROY Ot R00.2 PALPITATIONS 04/27/2017 DERRELL MONROY Ot Z79.899 OTHER USP (CURRENT) DRUG THERAPY 06/21/2017 DERRELL MONROY Ot D72.819 DECREASED WHITE BLOOD CELL COUNT, UNSPEC 06/21/2017 ELIANADERRELL N Ot E78.5 HYPERLIPIDEMIA, UNSPECIFIED 06/21/2017 ELIANA, BOBAN N Ot I10 ESSENTIAL (PRIMARY) HYPERTENSION 06/21/2017 ELIANA, BOBAN N Ot R00.2 PALPITATIONS 06/21/2017 ELIANA, BOBAN N Ot Z79.899 OTHER CEMENT BLOCK MAKER (CURRENT) DRUG THERAPY 06/29/2017 ELIANA, BOBAN N Ot D72.819 DECREASED WHITE BLOOD CELL COUNT, UNSPEC 06/29/2017 ELIANA BOBAN N Ot E78.5 HYPERLIPIDEMIA, UNSPECIFIED 06/29/2017 ELIANA, BOBAN N Ot I10 ESSENTIAL (PRIMARY) HYPERTENSION 06/29/2017 ELIANA, BOBAN N Ot R00.2 PALPITATIONS 06/29/2017 ELIANA, BOBAN N Ot Z79.899 OTHER USP (CURRENT) DRUG THERAPY 07/25/2017 ELIANA, BOBAN N Ot D72.819 DECREASED WHITE BLOOD CELL COUNT, UNSPEC 07/25/2017 ELIANA BOBKRISTINE N Ot E78.5 HYPERLIPIDEMIA, UNSPECIFIED 07/25/2017 ELIANA, BOBAN N Ot I10 ESSENTIAL (PRIMARY) HYPERTENSION 07/25/2017 ELIANA, BOBAN N Ot R00.2 PALPITATIONS 07/25/2017 ELIANA, BOBAN N Ot Z79.899 OTHER USP (CURRENT) DRUG THERAPY 07/26/2017 ELIANA, BOBKRISTINE N Ot D72.819 DECREASED WHITE BLOOD CELL COUNT, UNSPEC 07/26/2017 ELIANA, BOBAN N Ot E78.5 HYPERLIPIDEMIA, UNSPECIFIED 07/26/2017 ELIANA, BOBAN N Ot I10 ESSENTIAL (PRIMARY) HYPERTENSION 07/26/2017 ELIANA, BOBAN N Ot R00.2 PALPITATIONS 07/26/2017 ELIANA, BOBAN N Ot Z79.899 OTHER USP (CURRENT) DRUG THERAPY 11/20/2017 Julita Madrid A [...] Procedures Code Description [place] [address] A1C (IN-HOUSE) 07/04/2012 08271 ROUTINE VENIPUNCTURE 07/04/2012 02567 MICRO ALBUMIN-IN HOUSE 07/04/2012 92880 CMP 07/04/2012 23116 LIPID PANEL 07/04/2012 9875311 GFR CALC (RESULT ONLY) 07/04/2012 27753 CBC 07/04/2012 93069 TSH 07/04/2012 63640 XRAY CHEST 2 VIEW 01/26/2013 75639 MICRO ALBUMIN-IN HOUSE 01/26/2013 14442 A1C (IN-HOUSE) 01/26/2013 07290 US CAROTID DOPPLER 03/15/2013 98392 ROUTINE VENIPUNCTURE 04/04/2013 15923 CMP 04/04/2013 26584 LIPID PANEL 04/04/2013 55007 MAGNESIUM 04/04/2013 7357409 GFR CALC (RESULT ONLY) 04/04/2013 80005 TSH 04/04/2013 05420 CBC 04/04/2013 Results Test Result Range Complete [...] culture - 11/30/16 18:38 Bacterial urine culture [id number] NRG COLONY COUNT >100,000/ML NRG FTX;REPORTABLE SENSITIVITY [...] susceptibility test by minimum inhibitory concentration - [facility] Protime - 01/19/17 09:19 INR 1.1 1.0-4.0 [...] 5-8.5 Urine-Protein Negative Negative Urine-RBC 0-2/HPF Urine-Specific [place] 1.015 1.000-1.030 Urine-WBC 0-2/HPF Urobilinogen 1.0 0.2-1.0 TYPE/SCREEN - 11/20/17 06:25 ABO/RH A POSITIVE ANTIBODY SCREEN NEGATIVE Urine Culture - 11/20/17 07:00 FINAL CULTURE RESULTS >100,000 [id number] Skin Contaminant [id number] Further Workup done MEDIA PLATED Setup at 07:02 on 11/20/2017 CULTURE SOURCE cath urine Encounters ACCT No. Visit Date/Time Discharge Status Pt. Type Provider Facility Loc./Unit Complaint [id number] 04/04/2013 08:24:00 04/04/2013 23:59:59 CLS Outpatient TABBY WOODS APRN [id number] 03/15/2013 15:25:00 03/15/2013 23:59:59 CLS Outpatient TABBY WOODS APRN [id number] 01/26/2013 15:57:00 01/26/2013 23:59:59 CLS Outpatient TABBY WOODS APRN [id number] 07/04/2012 08:16:00 07/04/2012 23:59:59 CLS Outpatient TABBY WOODS APRN [id number] 11/20/2017 04:25:00 11/20/2017 08:25:00 DIS Outpatient Julita Madrid [facility] ER [id number] 01/19/2017 08:35:00 01/19/2017 10:50:00 DIS Outpatient Delores [facility] ER [id number] 09/27/2016 22:39:00 09/28/2016 01:15:00 DIS Outpatient SUL[facility] ER [id number] 09/28/2016 00:41:45 Document Registration [id number] 07/26/2017 00:41:00 07/26/2017 23:59:59 CLS Preadmit DERRELL MONROY [facility] ONC [id number] 05/27/2017 14:22:00 07/25/2017 00:01:00 DIS Outpatient DERRELL MONROY [facility] ONC [id number] 01/06/2017 07:54:00 01/06/2017 23:59:59 CLS Outpatient DALLAS RUBIO MD [facility] CARD I25.10 [id number] 11/30/2016 17:09:00 11/30/2016 20:02:00 DIS Outpatient KALPANA JEAN MD [facility] ER DISORIENTATION,SWEATY [id number] 01/31/2015 13:51:00 01/31/2015 23:59:59 CLS Outpatient DALLAS RUBIO MD [facility] CARD CAD, CP, HTN, HLD [id number] 04/26/2014 14:39:00 04/26/2014 16:23:00 DIS Emergency BRANDON DAHL, CATA Gaona [facility] ER ABD PAIN/SWELLING [id number] 03/29/2014 13:24:00 03/29/2014 23:59:59 CLS Outpatient SAMINA TREVINO MD [facility] RAD ABD PAIN [id number] 03/29/2014 11:12:00 03/29/2014 23:59:59 CLS Outpatient SAMINA TREVINO MD [facility] RAD ABNORMAL MAMMO [id number] 02/22/2014 08:56:00 02/22/2014 23:59:59 CLS Outpatient SAMINA TREVINO MD [facility] RAD INCREASED BILIRUBIN, ABN LIVER FUNCTION [id number] 09/22/2013 08:52:00 09/22/2013 23:59:59 CLS Outpatient AMINATA PETERSON MD [facility] SDC ABDOMINAL PAIN [id number] 09/20/2013 07:14:00 09/20/2013 23:59:59 CLS Outpatient AMINATA PETERSON MD [facility] PREOP ABDOMINAL PAIN [id number] 09/06/2013 21:05:00 09/07/2013 13:15:00 DIS Inpatient SAMINA TREVINO MD [facility] 4TH ACUTE COLITIS, ABD PAIN, UTI, LEUKOPENIA [id number] 03/22/2013 13:01:00 03/22/2013 23:59:59 CLS Outpatient TABBY WOODS [facility] RAD MEMORY LOSS [id number] 01/26/2013 17:07:00 01/26/2013 23:59:59 CLS Outpatient TABBY WOODSP [facility] RAD CHEST WALL PAIN [id number] 11/22/2012 10:06:00 11/28/2012 00:01:00 DIS Outpatient BAKARI FOX MD [facility] ONC [id number] 06/08/2013 00:00:00 Document Registration [id number] 05/25/2012 09:00:00 Document Registration [id number] 05/24/2012 10:44:00 Document Registration [id number] 05/23/2012 08:50:00 Document Registration [id number] 05/17/2012 14:58:00 Document Registration [id number] 05/12/2012 08:14:00 Document Registration [id number] 04/25/2012 10:55:00 Document Registration [id number] 03/16/2012 11:08:00 Document Registration [id number] 04/01/2011 05:31:00 Document Registration [id number] 03/31/2011 08:31:00 Document Registration
[2017-12-16] MEDS: POTASSIUM CL 10MEQ/50ML IVPB 50 ML IV SCH ×3 (05:27→07:39)
[2017-12-16] MEDS ORDERED: KCL 20 MEQ TAB (K-DUR) PO SCH (06:00)
[2017-12-16] MEDS ORDERED: POTASSIUM CL 10MEQ/50ML IVPB 50 ML IV SCH (06:00)
[2017-12-16] MEDS ORDERED: MAGNESIUM 1 GM/100 ML IVPB 100 ML IV SCH (06:00)
[2017-12-16] MEDS: FLUDROCORTISONE 0.1 MG (FLORINEF) TAB PO SCH (07:39)
--- NOTE | 2017-12-16 07:40 | Pulmonary Consultation ---
History of Present Illness History of Present Illness Date of Consultation 12/16/17 07:34 Time Seen by Provider: 07:34 Date of Admission Reason for Visit: Rectal bledding History of Present Illness 77yo poor historian with hx of nonalcoholic steatohepatitis, thrombocytopenia, DM II, hypothyroind presented to ED secondary to suspected acute GI Bleed. PT had recent hip fracture repair on 11/19 and has been on Xarelto since. Dark stools x 3 days and worsening lethargy since surgery. Since the surgery, she has not been walking, talking, or feeding herself. She follows with Dr. Hall for her liver disease, last seen in October. She has had paracentesis 2-3 times in the past 2 years since the liver disease has worsened. Prior to her fracture, she was walking around and was talkative. I am consulted for pulmonary management. Allergies and Home Medications Allergies Coded Allergies: hydroxyzine (Unverified Adverse Reaction, Intermediate, ALTERED MENTAL STATUS, 09/06/13) Penicillins (Unverified Adverse Reaction, Unknown, 09/06/13) Home Medications Calcium Carbonate 600 Mg Tablet, 600 MG PO HS, (Reported) Escitalopram Oxalate 20 Mg Tablet, 20 MG PO DAILY, (Reported) Fludrocortisone Acetate 0.1 Mg Tab, 0.1 MG PO DAILY, (Reported) Furosemide 20 Mg Tablet, 20 MG PO DAILY, (Reported) Glipizide 5 Mg Tablet, 5 MG PO DAILY, (Reported) Levothyroxine Sodium 50 Mcg Tablet, 50 MCG PO DAILY, (Reported) Rivaroxaban 10 Mg Tablet, 10 MG PO DAILY, (Reported) Rosuvastatin Calcium 20 Mg Tablet, 20 MG PO HS, (Reported) Spironolactone 100 Mg Tablet, 100 MG PO DAILY, (Reported) Past Hugoswn-Jdjsfj-Knwqxx Hx Past Med/Social Hx: Reviewed Nursing Past Med/Soc Hx, Reviewed and Corrections made Patient Social History Alcohol Use: Denies Use Recreational Drug Use: No Smoking Status: Unknown if Ever Smoked 2nd Hand Smoke Exposure: Yes Recent Foreign Travel: No Contact w/Someone Who Travel: No Recent Infectious Disease Expo: No Recent Hopitalizations: Yes (pt had hip surgery November 19, 2017) Physical Abuse: No Sexual Abuse: No Past Medical History Surgeries: Yes (VENTRAL HERNIA REPAIR, GANGLION ON HANDS, hip) Gallbladder, Orthopedic Respiratory: No Cardiac: Yes (SMALL ANEURYSM) High Cholesterol, Irregular Heartbeat Neurological: No Reproductive Disorders: No Genitourinary: No Gastrointestinal: Yes (nonalcoholic steatohepatitis) Liver Disease/Jaundice, Diverticulosis, Cirrhosis Musculoskeletal: Yes Arthritis Endocrine: Yes Hypothyroidsim, Diabetes, Non-Insulin dep Cancer: No Psychosocial: Yes Anxiety Nursing Suicide Risk Score: 0 Integumentary: Yes Eczema Blood Disorders: No Adverse Reaction/Blood Tranf: No Family Medical History Cancer 19 MOTHER (LUNG CANCER) G8 SISTER (NON HODGKINS LYMPHOMA) Congenital heart disease 19 MOTHER Family history: Arthritis 19 FATHER 19 MOTHER G8 BROTHER G8 SISTER G8 SISTER G8 SISTER G8 SISTER G8 SISTER Family history: Cardiovascular disease 19 MOTHER Family history: Hypertension 19 MOTHER Heart disease 19 MOTHER Myocardial infarction G8 SISTER Stroke 19 FATHER 19 MOTHER Tuberculosis G8 SISTER No Family History of: Abdominal aortic aneurysm Lonoke's disease Alcoholism Aphasia Cancer of colon Cataract Chest pain Congestive heart failure Cystic fibrosis Dementia Dysphagia Family history: Allergy Family history: Alzheimer's disease Family history: Asthma Family history: Breast disease Family history: Coronary thrombosis Family history: Diabetes mellitus Family history: Gastrointestinal disease Family history: Glaucoma Family history: Osteoporosis Family history: Thyroid disorder Headache Hearing loss Hereditary disease History of - anemia History of - disorder History of - respiratory disease History of drug abuse Human immunodeficiency virus (HIV) seropositivity Hypercholesterolemia Infertile Kidney disease Malignant neoplasm of lung Parkinson's disease Prostate cancer Psychotic disorder Seizure disorder Visual impairment Review of Systems Time Seen by Provider: 10:17 Sepsis Event Evaluation Height, Weight, BMI Height: 5'4.00" Weight: 151lbs. 6.0oz. 68.207981rq; 23.9 BMI Method:Stated Exam Exam Vital Signs Date Time Temp Pulse Resp B/P (MAP) Pulse Ox O2 Delivery O2 Flow Rate FiO2 12/16/17 06:00 86 19 112/57 (75) 95 Room Air 12/16/17 05:00 88 18 117/63 (81) 97 Room Air 12/16/17 04:10 80 17 95 Room Air 12/16/17 04:00 96 Room Air 12/16/17 04:00 96.8 12/16/17 03:00 78 18 100/47 (64) 95 Room Air 12/16/17 02:00 82 17 92/45 (61) 96 Room Air 12/16/17 01:27 84 12/16/17 01:00 83 17 103/59 (74) 95 Room Air 12/16/17 00:00 96 Room Air 12/16/17 00:00 97.0 12/16/17 00:00 80 16 100/50 (67) 95 Room Air 12/15/17 23:00 84 18 103/50 (67) 95 Room Air 12/15/17 22:00 82 21 96/49 (65) 92 Room Air 12/15/17 21:00 88 18 128/63 (84) 96 Room Air 12/15/17 20:00 97.3 96 12 132/79 (96) 97 Room Air 12/15/17 20:00 96 Room Air 12/15/17 19:04 89 12/15/17 19:00 90 10 121/68 (85) 97 Room Air 12/15/17 18:00 82 18 109/51 (70) 96 Room Air 12/15/17 17:00 93 20 115/49 (71) 96 Room Air 12/15/17 16:00 96 Room Air 12/15/17 16:00 87 20 117/59 (78) 97 Room Air 12/15/17 15:00 98.2 12/15/17 15:00 82 18 109/59 (76) 95 Room Air 12/15/17 14:07 81 12/15/17 14:00 94 Room Air 12/15/17 13:32 96.5 85 15 112/56 96 Room Air 12/15/17 11:09 96.4 88 13 135/70 (91) 95 Room Air I & O 12/16/17 07:00 Intake Total 80.5 ml Output Total 800 ml Balance -719.5 ml Height & Weight Height: 5'4.00" Weight: 151lbs. 6.0oz. 68.471292gs; 23.9 BMI Method:Stated General Appearance: No Apparent Distress, WD/WN, Chronically ill, Obese, Other (unresponsive, jaundiced) HEENT: PERRL/EOMI, Normal ENT Inspection, Pharynx Normal Neck: Full Range of Motion, Normal Inspection, Non Tender, Supple, Carotid Bruit Respiratory: Chest Non Tender, Lungs Clear, Normal Breath Sounds, No Accessory Muscle Use, No Respiratory Distress Cardiovascular: Regular Rate, Rhythm, No Edema, No Gallop, No JVD, No Murmur, Normal Peripheral Pulses Capillary Refill: Less Than 3 Seconds Gastrointestinal: non tender, soft Extremity: Normal Capillary Refill, Normal Inspection, Normal Range of Motion, Non Tender, No Calf Tenderness, No Pedal Edema Neurologic/Psychiatric: Other (Not alert or oriented) Skin: Warm/Dry, Jaundice Lymphatic: No Adenopathy Results Lab Laboratory Tests 12/15/17 11:20 12/15/17 11:34 12/16/17 03:15 Assessment/Plan Assessment/Plan Acute GI Bleed -Pt has been on Xeralto since hip fracture repair -Hold Xeralto -Surgery following -Monitor H&H Hx of dementia End stage liver disease with probable portal HTN Metabolic encephalopathy -Lactulose is ordered Chronic debility and dementia -Hospice is consulted. Pt overall has a poor prognosis and hospice care is recommended. RICHARD MA DO Dec 16, 2017 07:39
--- NOTE | 2017-12-16 08:56 | Progress Note-Hospitalist ---
AJ AVENDAÑO MEDICAL STUDENT 12/16/17 0856: Subjective HPI/CC On Admission Date Seen by Provider: Dec 16, 2017 Time Seen by Provider: 07:30 CC: AMS with bloody stools HPI: This is a patient of Dr Watson's who was recently admitted to [facility] for skilled care following a hip fracture repair at [facility] who has had a significant decline since her recent hospital stay (requiring being fed, can't walk and can't talk) who presented to the ER w/declining hemoglobin with bloody stools. Pt sees Dr Solares regularly for ESLD and she had declined to be on liver transplant list and she is a DNR. Dr Urbina is consulted for GIB and she has remained stable and INR elevation has been treated with Vit K. I had a long talk with her daughter and she is aware of the poor prognosis and I update her on the end stage liver disease process that will likely not be recoverable. Subjective/Events-last exam Pt had no acute events overnight. At least 4 BMs, all of which have been bloody per Denice, her nurse. Not able to take lactulose. Pain with movement, but notes no pain at rest. has no questions or concerns at this time. Focused Exam Respiratory: Lungs Clear, Normal Breath Sounds Cardiovascular: Regular Rate, Rhythm, Systolic Murmur Skin: normal color, cool Objective Exam Vital Signs Vital Signs Date Time Temp Pulse Resp B/P (MAP) Pulse Ox O2 Delivery O2 Flow Rate FiO2 12/16/17 07:41 95 Room Air 12/16/17 07:40 97.3 12/16/17 07:00 86 12/16/17 07:00 17 106/57 (73) Capillary Refill : Less Than 3 SecondsLess Than 3 Seconds Results/Procedures Lab Laboratory Tests 12/15/17 11:20 12/15/17 11:34 12/16/17 03:15 Patient resulted labs reviewed. Assessment/Plan Assessment and Plan Assess & Plan/Chief Complaint Patient is a 77 year old female with history of non-alcohol steatohepatitis and thrombocytopenia presenting with melena, dropping hemoglobin, and lethargy. Admitted for GI bleed in the setting of elevated INR and also found to have a UTI and RAY vs hepatorenal syndrome. 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 -Consult hospice : Given lethargy, could consider treating UTI -Ciprofloxacin 250 mg BID for 3 days Renal: Cr slightly improved to 1.66 from 1.73, consistent with hepatorenal syndrome vs. RAY -NS @ maintenance DUAL HOSE CEMENTER: Lethargic, hyponatremia of 134, CT head unremarkable -Daily CMP -NS @ maintenance CV: -Hold METALSMITH HELPER xarelto, continue metoprolol 25 mg GI: --Hold METALSMITH HELPER spironolactone and lasix, continue sucralfate -5 mg vitamin K in ED -Pantoprazole 40 mg IV BID -Consider lactulose or rifaximin given ammonia of 73 -Typed and crossed -Daily CBC, will transfuse if <8 g/dL -Surgery consulted, will obtain colonoscopy if pt continues to bleed : -Follow up urine culture -CTX 1g QDay for UTI Renal: Cr 1.73 from baseline of 0.7 - 0.9, consistent with hepatorenal syndrome vs. RAY -NS @ maintenance FEN: K 3.1 from 3.3 yesterday -4 bags potassium through IV -1 gram magnesium ordered Critical Care Critical Care: Critically Ill Patient Clinical Quality Measures DVT/VTE Risk/Contraindication: Risk Factor Score Per Nursin RFS Level Per Nursing on Admit: 4+=Very High NEYMAR RODRIGUEZ DO 12/16/17 1703: Subjective Subjective/Events-last exam Had in-depth conversation with family regarding the need to expect decline Chaundra with me during meeting Pt unresponsive and we will move to floor. Objective Exam General Appearance: No Apparent Distress, Chronically ill, Other (unresponsive) Respiratory: Decreased Breath Sounds Cardiovascular: Regular Rate, Rhythm Assessment/Plan Assessment and Plan Assess & Plan/Chief Complaint ESLD with end of life status Diagnosis/Problems Diagnosis/Problems (1) End stage liver disease Status: Acute AJ AVENDAÑO MEDICAL STUDENT Dec 16, 2017 08:56 NEYMAR RODRIGUEZ DO Dec 16, 2017 17:03
[2017-12-16] MEDS: LACTULOSE SYRUP 10GM/15ML (ENULOSE) 30ML UDC PO SCH ×2 (09:15→19:23)
[2017-12-16] MEDS: cefTRIAXone FOR IV USE 1,000 MG in NS (IVPB) 50 ML IV SCH (09:15)
[2017-12-16 11:40] LABS: HEMOGLOBIN 8.3 G/DL (11.5-16.0)
--- NOTE | 2017-12-16 13:53 | Progress Note-Standard ---
Standard Progress Note Progress Notes/Assess & Plan Date Seen by Provider: Dec 16, 2017 Time Seen by Provider: 13:53 Progress/Assessment & Plan Appears very frail. Hemoglobin 8.5. Family expresses their wishes to follow conservative measures. Final Diagnosis Rectal bleeding. AKASH OLIVAS MD Dec 16, 2017 1:53 pm
[2017-12-17] VITALS (7 sets, daily range): BP systolic 101–125; BP diastolic 56–65
[2017-12-17 05:16] LABS: BASOPHILS % (AUTO) 0 % (0-10); EOSINOPHILS # (AUTO) 0.1 10^3/uL (0.0-0.3); EOSINOPHILS % (AUTO) 2 % (0-10); HEMATOCRIT 24 % (35-52); HEMOGLOBIN 7.8 G/DL (11.5-16.0); LYMPHOCYTES # (AUTO) 0.7 X 10^3 (1.0-4.0); LYMPHOCYTES % (AUTO) 14 % (12-44); MEAN CORPUSCULAR HEMOGLOBIN 34 PG (25-34); MEAN CORPUSCULAR HGB CONC 33 G/DL (32-36); MEAN CORPUSCULAR VOLUME 104 FL (80-99); MEAN PLATELET VOLUME 9.8 FL (7.4-10.4); MONOCYTES # (AUTO) 0.7 X 10^3 (0.0-1.0); MONOCYTES % (AUTO) 14 % (0-12); NEUTROPHILS # (AUTO) 3.7 X 10^3 (1.8-7.8); NEUTROPHILS % (AUTO) 71 % (42-75); PLATELET COUNT 85 10^3/uL (130-400); RED BLOOD COUNT 2.29 10^6/uL (4.35-5.85); RED CELL DISTRIBUTION WIDTH 19.3 % (10.0-14.5); WHITE BLOOD COUNT 5.2 10^3/uL (4.3-11.0)
[2017-12-17 05:28] LABS: INR 1.6 (0.8-1.4); PROTHROMBIN TIME PATIENT 19.3 SEC (12.2-14.7)
[2017-12-17 05:40] LABS: BILIRUBIN,TOTAL 2.2 MG/DL (0.1-1.0); CALCIUM 7.9 MG/DL (8.5-10.1); CREATININE SERUM 1.57 MG/DL (0.60-1.30); POTASSIUM 3.5 MMOL/L (3.6-5.0); TOTAL PROTEIN 5.5 GM/DL (6.4-8.2)
[2017-12-17] MEDS: FLUDROCORTISONE 0.1 MG (FLORINEF) TAB PO SCH (06:01)
[2017-12-17 06:34] LABS: SMEAR SCAN COMMENT YES
--- NOTE | 2017-12-17 07:40 | Pulmonary Progress Note ---
Subjective Time Seen by Provider: 07:35 Subjective/Events-last exam No complicatios noted. Sepsis Event Evaluation Height, Weight, BMI Height: 5'4.00" Weight: 154lbs. 4.1oz. [id number]; 23.9 BMI Method:Stated Exam Exam Vital Signs Date Time Temp Pulse Resp B/P (MAP) Pulse Ox O2 Delivery O2 Flow Rate FiO2 12/17/17 04:37 98.7 87 18 125/62 (83) 94 12/17/17 00:03 97.8 88 17 121/57 (78) 94 12/16/17 20:15 97.7 96 24 114/59 (77) 96 12/16/17 20:00 Room Air 12/16/17 16:54 98.0 97 16 109/57 (74) 97 12/16/17 14:15 97 Room Air 12/16/17 14:00 98.2 98 16 117/62 (80) 97 Room Air 12/16/17 13:00 88 19 112/61 (78) 97 Room Air 12/16/17 12:00 91 22 123/67 (85) 97 Room Air 12/16/17 11:00 82 18 109/53 (71) 95 Room Air 12/16/17 10:00 84 17 101/46 (64) 95 Room Air 12/16/17 09:00 84 17 96/48 (64) 97 Room Air 12/16/17 08:00 78 17 98/46 (63) 94 Room Air 12/16/17 07:41 95 Room Air 12/16/17 07:40 97.3 I & O 12/17/17 07:00 Intake Total 1100 ml Output Total 375 ml Balance 725 ml Height & Weight Height: 5'4.00" Weight: 154lbs. 4.1oz. [id number]; 23.9 BMI Method:Stated General Appearance: No Apparent Distress, Chronically ill, Other (unresponsive) HEENT: PERRL/EOMI, Normal ENT Inspection, Pharynx Normal Neck: Full Range of Motion, Normal Inspection, Non Tender, Supple, Carotid Bruit Respiratory: Decreased Breath Sounds Cardiovascular: Regular Rate, Rhythm Capillary Refill: Less Than 3 Seconds Gastrointestinal: non tender, soft Extremity: Normal Capillary Refill, Normal Inspection, Normal Range of Motion, Non Tender, No Calf Tenderness, No Pedal Edema Neurologic/Psychiatric: Other (Not alert or oriented) Skin: Warm/Dry, Jaundice Lymphatic: No Adenopathy Results Lab Laboratory Tests 12/15/17 11:20 12/15/17 11:34 12/16/17 03:15 12/16/17 11:34 12/17/17 05:10 Assessment/Plan Assessment/Plan Acute GI Bleed -Pt has been on Xeralto since hip fracture repair -Hold Xeralto -Surgery following -Monitor H&H Hx of dementia End stage liver disease with probable portal HTN Metabolic encephalopathy -Lactulose is ordered Chronic debility and dementia -Hospice is consulted. Pt has a poor prognosis and hospice care is recommended. It sounds like family is strongly considering home hospice. RICHARD MA DO Dec 17, 2017 07:40
--- NOTE | 2017-12-17 08:47 | Progress Note-Hospitalist ---
AJ AVENDAÑO MEDICAL STUDENT 12/17/17 0847: Subjective HPI/CC On Admission Date Seen by Provider: Dec 17, 2017 Time Seen by Provider: 08:10 CC: AMS with bloody stools HPI: This is a patient of Dr Watson's who was recently admitted to [facility] for skilled care following a hip fracture repair at [place] who has had a significant decline since her recent hospital stay (requiring being fed, can't walk and can't talk) who presented to the ER w/declining hemoglobin with bloody stools. Pt sees Dr Solares regularly for ESLD and she had declined to be on liver transplant list and she is a DNR. Dr Urbina is consulted for GIB and she has remained stable and INR elevation has been treated with Vit K. I had a long talk with her daughter and she is aware of the poor prognosis and I update her on the end stage liver disease process that will likely not be recoverable. Subjective/Events-last exam Mrs. Mendez was awake yesterday and talking to family. She had no acute events overnight and slept well. Today, while awake, she was not talking. Her last BM was yesterday, and it is unclear whether it was bloody. Her does not believe she is in pain, though he does think she would like some jello. Focused Exam Respiratory: Lungs Clear, Normal Breath Sounds Cardiovascular: Regular Rate, Rhythm, Other (2+ edema) Objective Exam Vital Signs Vital Signs Date Time Temp Pulse Resp B/P (MAP) Pulse Ox O2 Delivery O2 Flow Rate FiO2 12/17/17 04:37 98.7 87 18 125/62 (83) 94 12/16/17 20:00 Room Air Capillary Refill : Less Than 3 SecondsLess Than 3 Seconds Results/Procedures Lab Laboratory Tests 12/16/17 11:34 12/17/17 05:10 Patient resulted labs reviewed. Assessment/Plan Assessment and Plan Assess & Plan/Chief Complaint Patient is a 77 year old female with history of non-alcohol steatohepatitis and thrombocytopenia presenting with melena, dropping hemoglobin, and lethargy. Admitted for GI bleed in the setting of elevated INR and also found to have a UTI and RAY vs hepatorenal syndrome. 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 GI: MELD score 33 --Hold COLOR MAKING SUPERVISOR spironolactone and lasix -5 mg IV vitamin K in ED -Pantoprazole 40 mg IV BID -Lactulose PO ordered, she had one dose yesterday -Surgery consulted, family wants conservative measures -Consulted hospice -Advance diet : -Rocephin 1 g Q24H Renal: Cr slightly improved to 1.57 from 1.66 -NS @ maintenance SUPERVISOR [employer]URNACE: Lethargic, hyponatremia of 134, CT head unremarkable -Daily CMP -NS @ maintenance CV: -Hold [employer] MAKING SUPERVISOR xarelto, continue metoprolol 25 mg GI: --Hold COLOR MAKING SUPERVISOR spironolactone and lasix, continue sucralfate -5 mg vitamin K in ED -Pantoprazole 40 mg IV BID -Lactulose for hyperammonemia -Typed and crossed -Surgery consulted, will obtain colonoscopy if pt continues to bleed : -Follow up urine culture -CTX 1g QDay for UTI Renal: Cr 1.57 from baseline of 0.7 - 0.9, consistent with hepatorenal syndrome -NS @ maintenance FEN: K 3.4 from 3.1 yesterday -4 bags potassium given through IV -1 gram magnesium given Critical Care Critical Care: Critically Ill Patient Clinical Quality Measures DVT/VTE Risk/Contraindication: Risk Factor Score Per Nursin RFS Level Per Nursing on Admit: 4+=Very High NEYMAR RODRIGUEZ DO 12/17/17 1028: Subjective Subjective/Events-last exam Had long conversation with family with palliative care and family once her to have "100 percent chance" of recovery and wants to continue with lactulose although patient not able to take adequate doses for treatment of hepatic encephalopathy elevation of ammonia Spoke with Dr. Solares and he had predicted the patient would pass away from end- stage liver disease long ago and although he's had multiple conversations with the family he agrees with the end-stage process and imminent considering the status she is in right now We'll check labs in the morning but patient would have to make significant improvement over the next 24 hours to have any type of recovery potential although her baseline when she was admitted was severely debilitated and poor prognosis since the hip fracture We'll continue to support the patient and the family in this difficult time but prognosis remains extremely poor and she is deemed a hospice candidate but family wants to continue aggressive treatment as we are currently doing. Review of Systems Neurological: Confusion Objective Exam General Appearance: No Apparent Distress, WD/WN, Chronically ill Respiratory: Lungs Clear, Normal Breath Sounds Cardiovascular: Regular Rate, Rhythm, No Edema Neurologic/Psychiatric: Other (unresponsive) Assessment/Plan Assessment and Plan Assess & Plan/Chief Complaint Patient has a very poor prognosis and is assessed to be hospice candidate and liver specialist Dr Solares predicted ESLD would have taken her life months ago since he started treating her in 2014. Family members are very insistent to maintain admission status and aggressive treatment. Pt not an endoscopy candidate due to frail status. Continue to support the patient and family in this very difficult time but baseline severe debility when she was admitted 3 weeks after hip fracture repair was extremely poor making it nearly impossible to have any type of meaningful recovery. Will provide as much emotional support to the family in this very difficult time. Diagnosis/Problems Diagnosis/Problems (1) End stage liver disease Status: Acute (2) Thrombocytopenia Status: Chronic (3) Encephalopathy Status: Acute (4) Fector hepaticus Status: Acute (5) Elevated INR Status: Acute (6) Edema Status: Chronic Qualifiers: Edema type: unspecified Qualified Codes: R60.9 - Edema, unspecified (7) Cirrhosis Status: Chronic Qualifiers: Hepatic cirrhosis type: unspecified hepatic cirrhosis Ascites presence: with ascites Qualified Codes: K74.60 - Unspecified cirrhosis of liver; R18.8 - Other ascites (8) Hip fracture requiring operative repair Status: Resolved (9) Increased ammonia level Status: Acute AJ AVENDAÑO MEDICAL STUDENT Dec 17, 2017 08:47 NEYMAR RODRIGUEZ DO Dec 17, 2017 10:28
[2017-12-17] MEDS: cefTRIAXone FOR IV USE 1,000 MG in NS (IVPB) 50 ML IV SCH (09:08)
[2017-12-17] MEDS: LACTULOSE SYRUP 10GM/15ML (ENULOSE) 30ML UDC PO SCH ×2 (09:08→21:08)
[2017-12-17] MEDS: NS IV 1000 ML 1,000 ML IV SCH ×2 (09:14→20:38)
[2017-12-18 04:20] VITALS: BP 108/59
[2017-12-18] MEDS: FLUDROCORTISONE 0.1 MG (FLORINEF) TAB PO SCH (05:53)
[2017-12-18] MEDS: NS IV 1000 ML 1,000 ML IV SCH ×2 (06:03→16:56)
[2017-12-18 06:27] LABS: BASOPHILS % (AUTO) 0 % (0-10); EOSINOPHILS # (AUTO) 0.1 10^3/uL (0.0-0.3); EOSINOPHILS % (AUTO) 1 % (0-10); HEMATOCRIT 26 % (35-52); HEMOGLOBIN 8.6 G/DL (11.5-16.0); LYMPHOCYTES # (AUTO) 0.8 X 10^3 (1.0-4.0); LYMPHOCYTES % (AUTO) 14 % (12-44); MEAN CORPUSCULAR HEMOGLOBIN 35 PG (25-34); MEAN CORPUSCULAR HGB CONC 34 G/DL (32-36); MEAN CORPUSCULAR VOLUME 105 FL (80-99); MEAN PLATELET VOLUME 10.3 FL (7.4-10.4); MONOCYTES # (AUTO) 0.7 X 10^3 (0.0-1.0); MONOCYTES % (AUTO) 12 % (0-12); NEUTROPHILS % (AUTO) 72 % (42-75); PLATELET COUNT 73 10^3/uL (130-400); RED BLOOD COUNT 2.46 10^6/uL (4.35-5.85); RED CELL DISTRIBUTION WIDTH 18.9 % (10.0-14.5); WHITE BLOOD COUNT 5.5 10^3/uL (4.3-11.0)
[2017-12-18 06:44] LABS: INR 1.4 (0.8-1.4); PROTHROMBIN TIME PATIENT 16.8 SEC (12.2-14.7)
[2017-12-18 06:52] LABS: ALBUMIN 2.1 GM/DL (3.2-4.5); BILIRUBIN,TOTAL 2.1 MG/DL (0.1-1.0); CALCIUM 7.8 MG/DL (8.5-10.1); CREATININE SERUM 1.58 MG/DL (0.60-1.30); POTASSIUM 3.1 MMOL/L (3.6-5.0); TOTAL PROTEIN 5.5 GM/DL (6.4-8.2)
[2017-12-18 08:00] VITALS: BP 106/52
[2017-12-18] MEDS: LACTULOSE SYRUP 10GM/15ML (ENULOSE) 30ML UDC PO SCH ×2 (08:52→12:04)
[2017-12-18] MEDS: cefTRIAXone FOR IV USE 1,000 MG in NS (IVPB) 50 ML IV SCH (08:53)
[2017-12-18] MEDS ORDERED: FUROSEMIDE 40 MG/4 ML INJ (LASIX) IVP NR (10:03)
--- NOTE | 2017-12-18 10:04 | Progress Note-Hospitalist ---
Subjective HPI/CC On Admission Date Seen by Provider: Dec 18, 2017 Time Seen by Provider: 09:59 CC: AMS with bloody stools HPI: This is a patient of Dr Watson's who was recently admitted to [facility] for skilled care following a hip fracture repair at [place] who has had a significant decline since her recent hospital stay (requiring being fed, can't walk and can't talk) who presented to the ER w/declining hemoglobin with bloody stools. Pt sees Dr Solares regularly for ESLD and she had declined to be on liver transplant list and she is a DNR. Dr Urbina is consulted for GIB and she has remained stable and INR elevation has been treated with Vit K. I had a long talk with her daughter and she is aware of the poor prognosis and I update her on the end stage liver disease process that will likely not be recoverable. Subjective/Events-last exam Pt is somnolent during exam. Does make eye contact but did not participate with conversation. Family states her mentation has improved and last night she was able to talk with family. Objective Exam Vital Signs Vital Signs Date Time Temp Pulse Resp B/P (MAP) Pulse Ox O2 Delivery O2 Flow Rate FiO2 12/18/17 04:20 98.4 85 20 108/59 (75) 95 Room Air Capillary Refill : Less Than 3 SecondsLess Than 3 Seconds General Appearance: No Apparent Distress, Chronically ill Respiratory: Lungs Clear, No Respiratory Distress Cardiovascular: Regular Rate, Rhythm, No Murmur Gastrointestinal: Normal Bowel Sounds, Non Tender, Distended; No Guarding Extremity: No Calf Tenderness, Pedal Edema Neurologic/Psychiatric: Alert, Disoriented Results/Procedures Lab Laboratory Tests 12/18/17 06:20 Patient resulted labs reviewed. Assessment/Plan Assessment and Plan Assess & Plan/Chief Complaint ESLD Critical Care Critical Care: Critically Ill Patient Diagnosis/Problems Diagnosis/Problems (1) End stage liver disease Status: Acute Assessment & Plan: Dr Walker discussed case with Dr Solares who agrees with plan of care- no changes to make Records from this hospitalization sent to Dr Solares for review Liver function studies remains abnormal Discussed with family that will continue with symptomatic treatment but if liver function not improving prognosis will remain poor (2) Anemia Status: Acute Assessment & Plan: Improved this AM Trend Dr Urbina consulted, appreciate recs and plan to continue on conservative treatment Qualifiers: Anemia type: unspecified type Qualified Codes: D64.9 - Anemia, unspecified (3) Urinary tract infection Status: Acute Assessment & Plan: Continue on Rocephin Lactobacillus growing on culture Qualifiers: Urinary tract infection type: acute cystitis Hematuria presence: with hematuria Qualified Codes: N30.01 - Acute cystitis with hematuria (4) Encephalopathy Status: Acute Assessment & Plan: Improved per family Ammonia mildly improved Clinical Quality Measures DVT/VTE Risk/Contraindication: Risk Factor Score Per Nursin RFS Level Per Nursing on Admit: 4+=Very High FELICITA MONTERO MD Dec 18, 2017 10:04 am
[2017-12-18 12:05] VITALS: BP 101/50
[2017-12-18 16:30] VITALS: BP 98/55
[2017-12-18] MEDS: POTASSIUM CL 10MEQ/50ML IVPB 50 ML IV SCH ×4 (16:58→20:24)
[2017-12-18 17:00] VITALS: BP 118/68
[2017-12-18 20:15] VITALS: BP 96/55
[2017-12-19] VITALS: BP 102/59
[2017-12-19 04:00] VITALS: BP 110/57
[2017-12-19] MEDS: NS IV 1000 ML 1,000 ML IV SCH ×2 (04:53→20:48)
[2017-12-19] MEDS: FLUDROCORTISONE 0.1 MG (FLORINEF) TAB PO SCH (06:05)
[2017-12-19 06:30] LABS: BASOPHILS % (AUTO) 0 % (0-10); EOSINOPHILS # (AUTO) 0.1 10^3/uL (0.0-0.3); EOSINOPHILS % (AUTO) 2 % (0-10); HEMATOCRIT 26 % (35-52); HEMOGLOBIN 8.5 G/DL (11.5-16.0); LYMPHOCYTES # (AUTO) 0.7 X 10^3 (1.0-4.0); LYMPHOCYTES % (AUTO) 16 % (12-44); MEAN CORPUSCULAR HEMOGLOBIN 34 PG (25-34); MEAN CORPUSCULAR HGB CONC 32 G/DL (32-36); MEAN CORPUSCULAR VOLUME 106 FL (80-99); MEAN PLATELET VOLUME 10.1 FL (7.4-10.4); MONOCYTES # (AUTO) 0.5 X 10^3 (0.0-1.0); MONOCYTES % (AUTO) 12 % (0-12); NEUTROPHILS # (AUTO) 3.2 X 10^3 (1.8-7.8); NEUTROPHILS % (AUTO) 71 % (42-75); PLATELET COUNT 79 10^3/uL (130-400); RED BLOOD COUNT 2.49 10^6/uL (4.35-5.85); WHITE BLOOD COUNT 4.5 10^3/uL (4.3-11.0)
[2017-12-19 06:42] LABS: INR 1.3 (0.8-1.4); PROTHROMBIN TIME PATIENT 16.1 SEC (12.2-14.7)
[2017-12-19 06:56] LABS: ALBUMIN 2.1 GM/DL (3.2-4.5); BILIRUBIN,TOTAL 2.1 MG/DL (0.1-1.0); CREATININE SERUM 1.4 MG/DL (0.60-1.30); POTASSIUM 3.5 MMOL/L (3.6-5.0); TOTAL PROTEIN 5.8 GM/DL (6.4-8.2)
[2017-12-19 08:15] VITALS: BP 96/52
[2017-12-19] MEDS: cefTRIAXone FOR IV USE 1,000 MG in NS (IVPB) 50 ML IV SCH (08:35)
[2017-12-19] MEDS: LACTULOSE SYRUP 10GM/15ML (ENULOSE) 30ML UDC PO SCH ×2 (08:35→19:46)
--- NOTE | 2017-12-19 09:44 | Progress Note-Hospitalist ---
Subjective HPI/CC On Admission Date Seen by Provider: Dec 19, 2017 Time Seen by Provider: 09:40 CC: AMS with bloody stools. Subjective/Events-last exam Pt is sleeping but easily awakes and states she's doing well. More conversant than yesterday but quickly fell asleep again. Family at bedside state she was awake earlier today and talkative. They state she drinks some still but is not eating much yet. Objective Exam Vital Signs Vital Signs Date Time Temp Pulse Resp B/P (MAP) Pulse Ox O2 Delivery O2 Flow Rate FiO2 12/19/17 08:15 96.9 74 16 96/52 (67) 93 Room Air Capillary Refill : Less Than 3 SecondsLess Than 3 Seconds General Appearance: No Apparent Distress, Chronically ill Respiratory: Lungs Clear, No Respiratory Distress Cardiovascular: Regular Rate, Rhythm, No Murmur Gastrointestinal: Normal Bowel Sounds, Non Tender, Distended; No Guarding Extremity: Pedal Edema (worse from yesterday) Neurologic/Psychiatric: Alert, Disoriented, Other Results/Procedures Lab Laboratory Tests 12/19/17 06:20 Patient resulted labs reviewed. Assessment/Plan Assessment and Plan Assess & Plan/Chief Complaint ESLD Critical Care Critical Care: Critically Ill Patient Diagnosis/Problems Diagnosis/Problems (1) End stage liver disease Status: Acute Assessment & Plan: Dr Walker discussed case with Dr Solares who agrees with plan of care- no changes to make Records from this hospitalization sent to Dr Solares for review Liver function studies remains abnormal Discussed with family that will continue with symptomatic treatment but if liver function not improving prognosis will remain poor (2) Ascites Assessment & Plan: Repeat Lasix dose Resume home spironolactone If no improvement still will discuss with surgery about possible paracentesis Qualifiers: Ascites type: other type Qualified Codes: R18.8 - Other ascites (3) Anemia Status: Acute Assessment & Plan: Stable this AM Hold anticoagulation Dr Urbina consulted, appreciate recs and plan to continue on conservative treatment Qualifiers: Anemia type: unspecified type Qualified Codes: D64.9 - Anemia, unspecified (4) Urinary tract infection Status: Acute Assessment & Plan: Continue on Rocephin Lactobacillus growing on culture Qualifiers: Urinary tract infection type: acute cystitis Hematuria presence: with hematuria Qualified Codes: N30.01 - Acute cystitis with hematuria (5) Encephalopathy Status: Acute Assessment & Plan: Improved per family Ammonia improved Decrease lactulose dosing as had 8 BMs yesterday Clinical Quality Measures DVT/VTE Risk/Contraindication: Risk Factor Score Per Nursin RFS Level Per Nursing on Admit: 4+=Very High FELICITA MONTERO MD Dec 19, 2017 9:44 am
[2017-12-19] MEDS ORDERED: SPIRONOLACTONE 100 MG (ALDACTONE) TABLET PO NR (10:00)
[2017-12-19] MEDS ORDERED: FUROSEMIDE 40 MG/4 ML INJ (LASIX) IVP NR (10:03)
[2017-12-19 12:30] VITALS: BP 122/69
[2017-12-19] MEDS: POTASSIUM CL 10MEQ/50ML IVPB 50 ML IV SCH ×4 (12:41→15:56)
[2017-12-19 15:45] VITALS: BP 98/54
[2017-12-19 20:05] VITALS: BP 112/57
[2017-12-20 00:34] VITALS: BP 105/54
[2017-12-20 05:46] LABS: BASOPHILS % (AUTO) 1 % (0-10); EOSINOPHILS # (AUTO) 0.1 10^3/uL (0.0-0.3); EOSINOPHILS % (AUTO) 2 % (0-10); HEMATOCRIT 25 % (35-52); HEMOGLOBIN 8.3 G/DL (11.5-16.0); LYMPHOCYTES # (AUTO) 0.8 X 10^3 (1.0-4.0); LYMPHOCYTES % (AUTO) 14 % (12-44); MEAN CORPUSCULAR HEMOGLOBIN 35 PG (25-34); MEAN CORPUSCULAR HGB CONC 34 G/DL (32-36); MEAN CORPUSCULAR VOLUME 104 FL (80-99); MONOCYTES # (AUTO) 0.6 X 10^3 (0.0-1.0); MONOCYTES % (AUTO) 10 % (0-12); NEUTROPHILS # (AUTO) 4.1 X 10^3 (1.8-7.8); NEUTROPHILS % (AUTO) 73 % (42-75); PLATELET COUNT 88 10^3/uL (130-400); RED BLOOD COUNT 2.36 10^6/uL (4.35-5.85); WHITE BLOOD COUNT 5.6 10^3/uL (4.3-11.0)
[2017-12-20] MEDS: FLUDROCORTISONE 0.1 MG (FLORINEF) TAB PO SCH (06:03)
[2017-12-20 06:06] LABS: ALBUMIN 2.1 GM/DL (3.2-4.5); BILIRUBIN,TOTAL 2.3 MG/DL (0.1-1.0); CALCIUM 8.1 MG/DL (8.5-10.1); CREATININE SERUM 1.42 MG/DL (0.60-1.30); POTASSIUM 3.8 MMOL/L (3.6-5.0); TOTAL PROTEIN 5.8 GM/DL (6.4-8.2)
--- NOTE | 2017-12-20 07:58 | Progress Note-Hospitalist ---
Subjective HPI/CC On Admission Date Seen by Provider: Dec 20, 2017 Time Seen by Provider: 07:53 CC: AMS with bloody stools. Subjective/Events-last exam Pt is more alert today. States she is doing well. Asks to get out of bed. Tires very quickly though and fell back asleep. Discussed with family who said she had a long night with visitors and is tired. There plan is when she is read for DC to DC home with home health. Objective Exam Vital Signs Vital Signs Date Time Temp Pulse Resp B/P (MAP) Pulse Ox O2 Delivery O2 Flow Rate FiO2 12/20/17 00:34 98.8 85 16 105/54 (71) 91 Room Air Capillary Refill : Less Than 3 SecondsLess Than 3 Seconds General Appearance: No Apparent Distress, WD/WN Respiratory: Lungs Clear, No Respiratory Distress Cardiovascular: Regular Rate, Rhythm, No Murmur Gastrointestinal: Normal Bowel Sounds, Non Tender, Soft Extremity: Pedal Edema Neurologic/Psychiatric: Alert, Other (oriented to person and place) Results/Procedures Lab Laboratory Tests 12/20/17 05:35 Patient resulted labs reviewed. Assessment/Plan Assessment and Plan Assess & Plan/Chief Complaint ESLD Critical Care Critical Care: Critically Ill Patient Diagnosis/Problems Diagnosis/Problems (1) End stage liver disease Status: Acute Assessment & Plan: Dr Walker discussed case with Dr Solares who agrees with plan of care- no changes to make Records from this hospitalization sent to Dr Solares for review Liver function studies remains abnormal Discussed with family and plan to DC home when medically stable Starting all oral meds today and DC-ing IV meds in trial for home (2) Ascites Assessment & Plan: Switch to oral lasix Cont home spironolactone Discussed with Dr Ramos who will see patient Distention much improved today Qualifiers: Ascites type: other type Qualified Codes: R18.8 - Other ascites (3) Anemia Status: Acute Assessment & Plan: Stable this AM Hold anticoagulation Dr Urbina consulted, appreciate recs and plan to continue on conservative treatment Qualifiers: Anemia type: unspecified type Qualified Codes: D64.9 - Anemia, unspecified (4) Urinary tract infection Status: Acute Assessment & Plan: Continue on Rocephin Lactobacillus growing on culture Qualifiers: Urinary tract infection type: acute cystitis Hematuria presence: with hematuria Qualified Codes: N30.01 - Acute cystitis with hematuria (5) Encephalopathy Status: Acute Assessment & Plan: Improving Continue Lactulose goal 2-3 BMs/day Clinical Quality Measures DVT/VTE Risk/Contraindication: Risk Factor Score Per Nursin RFS Level Per Nursing on Admit: 4+=Very High FELICITA MONTERO MD Dec 20, 2017 07:58
[2017-12-20 08:00] VITALS: BP 125/62
--- NOTE | 2017-12-20 08:46 | Physical Therapy Evaluation ---
PT Evaluation-General Medical Diagnosis Admission Date Dec 15, 2017 at 11:50 Medical Diagnosis: AMS and bloody stools Onset Date: Dec 15, 2017 Therapy Diagnosis Therapy Diagnosis: impaired mobility, endurance, strength Height/Weight Height (Feet): 5 Height (Inches): 4.00 Weight (Pounds): 168 Weight (Ounces): 9.6 Precautions Precautions/Isolations: Fall Prevention Weight Bear Status Right Lower Extremity: Right Weight Bearing/Tolerated Left Lower Extremity: Left Weight Bearing/Tolerated Referral Physician: Nesha Gaytan MD Reason for Referral: Evaluation/Treatment Medical History Additional Medical History Past Medical History Surgeries: Gallbladder, Orthopedic Cardiac: High Cholesterol, Irregular Heartbeat Reproductive: No Gastrointestinal: Liver Disease/Jaundice, Diverticulosis, Cirrhosis Musculoskeletal: Arthritis Endocrine: Hypothyroidsim, Diabetes, Non-Insulin dep Psychosocial: Anxiety, Depression Skin/Integumentary: Eczema Current History Patient had left hip surgery on 11/20/07. Reviewed History: Yes Social History Unknown patient's living conditions Prior/Core FIM Prior Level of Function Functional [place] Measure 0=Not Assessed/NA 4=Minimal Assistance 1=Total Assistance 5=Supervision or Setup 2=Maximal Assistance 6=Modified [place] 3=Moderate Assistance 7=Complete [place] unknown PT Evaluation-Current Subjective Patient in bed pre tx, she can't stay awake long enough to answer any questions and even when she sits on the side of the bed she still cannot answer questions. Pt/Family Goals none stated Objective Patient Orientation: Unable to Assess Attachments: SCD's, IV ROM/Strength ROM Lower Extremities NT Strength Lower Extremities NT, patient not able to follow commands Transfers Functional [place] Measure 0=Not Assessed/NA 4=Minimal Assistance 1=Total Assistance 5=Supervision or Setup 2=Maximal Assistance 6=Modified [place] 3=Moderate Assistance 7=Complete [place] Transfers (B, C, W/C) (FIM): 1 Scootin Rollin Supine to/from Sit: 1 Patient was dependent for bed mobility and supine to sit, she sat at the edge of the bed for a few minutes and it was attempted to get her to perform some LAQ but she was too lethargic to participate. Balance Sitting Static: Poor Sitting Dynamic: Poor Assessment/Needs Patient has impaired mobility, strength, endurance. She is very lethargic and cannot really participate in therapy at a level that is going to benefit her. Rehab Potential: Poor PT Short Term Goals Short Term Goals Time Frame: Dec 27, 2017 Transfers (B,C,W/C) (FIM): 3 PT Plan Problem List Problem List: Activity Tolerance, Functional Strength, Safety, Balance, Gait, Transfer, Bed Mobility, ROM Treatment/Plan Treatment Plan: Continue Plan of Care Treatment Plan: Bed Mobility, Concurrent Therapy, Education, Functional Activity Nancy, Functional Strength, Gait, Safety, Therapeutic Exercise, Transfers Treatment Duration: Dec 27, 2017 Frequency: 6 times per week Estimated Hrs Per Day: .25 hour per day (15-30') Patient and/or Family Agrees t: Yes Safety Risks/Education Patient Education: Transfer Techniques, Correct Positioning, Safety Issues Teaching Recipient: Patient Teaching Methods: Demonstration, Discussion Response to Teaching: Reinforcement Needed Discharge Recommendations Plan Patient will perform bed mobility and transfer training, balance and endurance training, functional strengthening, stair training, gait training, and education , to improve functional mobility and independence at home. Therapy D/C Recommendations: Home w/ Family Support, Senior Living (TCU/NH) Time/GCodes Time In: 819 Time Out: 0836 Total Billed Treatment Time: 16 Total Billed Treatment 1 visit [facility] 16' NATHANIEL COLE PT Dec 20, 2017 08:46
[2017-12-20] MEDS: LEVOTHYROXINE 50 MCG (LEVOTHROID) TAB PO SCH (08:53)
[2017-12-20] MEDS: cefTRIAXone FOR IV USE 1,000 MG in NS (IVPB) 50 ML IV SCH (08:53)
[2017-12-20] MEDS: LACTULOSE SYRUP 10GM/15ML (ENULOSE) 30ML UDC PO SCH ×2 (08:53→19:54)
[2017-12-20] MEDS: FUROSEMIDE 40 MG (LASIX) TAB PO SCH (08:53)
[2017-12-20] MEDS: SPIRONOLACTONE 100 MG (ALDACTONE) TABLET PO SCH (08:53)
--- NOTE | 2017-12-20 11:37 | Diagnostic Imaging Report ---
PROCEDURE: US Abdomen, limited. TECHNIQUE: Multiple realtime grayscale images were obtained over the abdomen in various projections. INDICATION: Ultrasound was utilized for localization for a paracentesis. FINDINGS: Real-time imaging shows large volume of ascites. An area was marked in the left lower quadrant for access. IMPRESSION: Large amount of ascites with window localized for paracentesis. Dictated by: Dictated on workstation # [id number]
[2017-12-20] MEDS ORDERED: LIDOCAINE 1% INJ 20 ML 20 ML VIAL ONE (11:45)
--- NOTE | 2017-12-20 12:23 | Progress Note (SOAP) ---
Subjective Date Seen by Provider: Dec 20, 2017 Time Seen by Provider: 11:50 Subjective/Events-last exam Patient seen with Dr. Ramos. Patient in bed with family at bedside. Patient denies any complaints. Family reports that she has not had much of an appetite but is otherwise doing well. They report that she has had paracentesis in the past. Objective Exam Vital Signs Date Time Temp Pulse Resp B/P (MAP) Pulse Ox O2 Delivery O2 Flow Rate FiO2 12/20/17 08:00 98.5 85 16 125/62 (83) 92 Room Air 12/20/17 00:34 98.8 85 16 105/54 (71) 91 Room Air 12/19/17 20:05 98.2 89 20 112/57 (75) 93 Room Air 12/19/17 19:45 Room Air 12/19/17 15:45 98.5 84 18 98/54 (69) 92 Room Air 12/19/17 12:30 96.5 87 16 122/69 (86) 93 Room Air I & O 12/20/17 07:00 Intake Total 1550 ml Output Total 1050 ml Balance 500 ml Capillary Refill : Less Than 3 SecondsLess Than 3 Seconds General Appearance: No Apparent Distress, WD/WN Neck: Full Range of Motion, Normal Inspection, Non Tender, Supple Respiratory: Chest Non Tender, No Accessory Muscle Use, No Respiratory Distress Cardiovascular: Regular Rate, Rhythm, No Murmur Gastrointestinal: normal bowel sounds, non tender, soft, distended, other ( Positive fluid wave) Extremity: Normal Capillary Refill, Normal Inspection, Normal Range of Motion Neurologic/Psychiatric: Alert, Other (oriented to person and place) Skin: Normal Color, Warm/Dry Results Lab Laboratory Tests 12/20/17 05:35: White Blood Count 5.6, Red Blood Count 2.36L, Hemoglobin 8.3L, Hematocrit 25L, Mean Corpuscular Volume 104H, Mean Corpuscular Hemoglobin 35H, Mean Corpuscular Hemoglobin Concent 34, Red Cell Distribution Width 19.0H, Platelet Count 88L, Mean Platelet Volume 10.0, Neutrophils (%) (Auto) 73, Lymphocytes (%) (Auto) 14 , Monocytes (%) (Auto) 10, Eosinophils (%) (Auto) 2, Basophils (%) (Auto) 1, Neutrophils # (Auto) 4.1, Lymphocytes # (Auto) 0.8L, Monocytes # (Auto) 0.6, Eosinophils # (Auto) 0.1, Basophils # (Auto) 0.0, Sodium Level 138, Potassium Level 3.8, Chloride Level 110H, Carbon Dioxide Level 17L, Anion Gap 11, Blood Urea Nitrogen 29H, Creatinine 1.42H, Estimat Glomerular Filtration Rate 36, BUN/ Creatinine Ratio 20, Glucose Level 126H, Calcium Level 8.1L, Corrected Calcium 9.6, Total Bilirubin 2.3H, Aspartate Amino Transf (AST/SGOT) 34, Alanine Aminotransferase (ALT/SGPT) 24, Alkaline Phosphatase 279H, Ammonia 53H, Total Protein 5.8L, Albumin 2.1L Microbiology 12/15/17 MRSA Screen - Final, Complete MRSA not isolated 12/15/17 Urine Culture - Final, Complete Lactobacillus species See Comments Assessment/Plan Assessment/Plan Assess & Plan/Chief Complaint A 77 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 VSS and labs stable. Ultrasound was performed which showed large amount of ascites. Will proceed with paracentesis. Clinical Quality Measures DVT/VTE Risk/Contraindication: Risk Factor Score Per Nursin RFS Level Per Nursing on Admit: 4+=Very High RAJESH AMADOR APRN Dec 20, 2017 12:23 pm
--- NOTE | 2017-12-20 12:48 | Progress Note-Post Operative ---
Post-Operative Progess Note Surgeon (s)/Aurist (s) Surgeon AMINATA PETERSON MD Aurist: none Pre-Operative Diagnosis symptomatic ascites Post-Operative Diagnosis same Procedure & Operative Findings Date of Procedure 12/20/17 Procedure Performed/Findings paracentesis Anesthesia Type local Estimated Blood Loss Estimated blood loss (mL): minimal Specimens/Packing Specimens Removed none AMINATA PETERSON MD Dec 20, 2017 12:48
[2017-12-20] MEDS: NYSTATIN ORAL SUSP 5 ML UDC PO SCH ×3 (13:20→23:30)
--- NOTE | 2017-12-20 14:08 | OPERATIVE REPORT ---
DATE OF SERVICE: 12/20/2017 ATTENDING PRIMARY CARE PHYSICIAN: Dr. Watson. 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 POSTPROCEDURE DIAGNOSIS: Symptomatic ascites secondary to nonalcoholic steatosis induced liver cirrhosis. PROCEDURE: Paracentesis. SURGEON: Aminata Peterson MD ANESTHESIA: Local. ESTIMATED BLOOD LOSS: Minimal. FINDINGS: A straw yellow transudative fluid. DISPOSITION: The patient tolerated the procedure well. INDICATIONS: The patient is a 77-year-old female with history of nonalcoholic steatohepatitis and resultant cirrhosis. She was admitted for anemia; however, was also status post left hip fracture on 11/19/2017, and has been on anticoagulation with Xarelto. Since starting her, on admission she reported three-day history of lethargy as well as dark stools. She also does again have the liver cirrhosis and has had ascites in the past requiring paracentesis. She again is symptomatic with significant abdominal distention which does impair respirations. Before the procedure, the abdomen was marked by ultrasonography in the left lower abdominal quadrant. The abdomen was then prepped and draped in standard surgical fashion. 1% lidocaine was used to anesthetize the skin, subcutaneous fat, muscle layers as well as the peritoneal lining. A small vertical skin incision was made using 11-blade and the trocar and sheath were then introduced drawing of a straw yellow transudative fluid. The catheter was then advanced over the sheath. The trocar without any resistance. The catheter was then connected to tubing and gravity drainage bag. The catheter was then cleaned and covered with gauze followed by Op-Site. The patient tolerated the procedure well. We will continue drainage until she is asymptomatic and then instruct removal of the drain. Job ID: [id number] DocumentID: [id number] Dictated Date: 12/20/2017 12:52:57 Parole Board Member Date: 12/20/2017 14:08:08 Dictated By: AMINATA PETERSON MD
--- NOTE | 2017-12-20 14:20 | Occupational Therapy Eval ---
OT Evaluation-General/PLF Medical Diagnosis Admission Date Dec 15, 2017 at 11:50 Medical Diagnosis: AMS and bloody stools Onset Date: Dec 15, 2017 Therapy Diagnosis Therapy Diagnosis: impaired ADL skills Height/Weight Height (Feet): 5 Height (Inches): 4.00 Weight (Pounds): 168 Weight (Ounces): 9.6 Precautions Precautions/Isolations: Fall Prevention Safety Interventions: Bed Exit Alarm Referral Physician: Nesha Gaytan MD Medical History Pertinent Medical History: Arthritis, DM, Hypothroidism Additional Medical History ventral hernia repair, high cholesterol, irregular heartbeat, liver disease/ cirrhosis, diverticulosis, anxiety, depression Current History Pt admitted with AMS and rectal bleeding. Pt had a hip fracture on 11/19 and has been at [facility] for care. Social History Home: Single Level Current Living Status: Spouse Daughter states they are trying to get a ramp built ADL-Prior Level of Function ADL PLOF Comments Daughter states that prior to her hip fracture, pt was able to complete basic self care without assistance and was able to walk. Since her hip fracture, pt has been unable to complete self care and has been unable to walk or transfer without assistance. OT Current Status Subjective Pt in bed with daughter and granddaughter present. Pt lethargic, but opens eyes briefly. Pt answers simple yes/no questions. States she is not currently having pain. Mental Status/Objective Patient Orientation: Confused Attachments: Drains, Anaya Catheter Current Glasses/Contacts: Yes Dentures/Partials: Yes (hasn't been wearing them) Upper Extremity ROM Pt attempts to follow simple commands for ROM testing. Pt has decreased active shoulder ROM and resists attempts at PROM Upper Extremity Coordination impaired Upper Extremity Strength Unable to formally assess secondary to decreased ability to follow commands. Pt appears to have poor strength. ADL-Treatment ADL-Current Attempted to have pt participate in grooming tasks. Pt holds washcloth in right hand, but does not bring it to her face. Pt requires max assist to wash face. Did not attempt OOB activity at this time secondary to pt lethargy. Daughter states they have been feeding the pt. Pt resting in bed with needs met and family present after session. Functional [place] Measure 0=Not Assessed/NA 4=Minimal Assistance 1=Total Assistance 5=Supervision or Setup 2=Maximal Assistance 6=Modified [place] 3=Moderate Assistance 7=Complete IndependenceIRFPAI Quality Coding Scale 6 Independent with activity with or without an assistive device 5 Patient requires set up or clean up by helper. Patient completes activity by themselves 4 Supervision or touching assist (CGA). [place] provide cues , steadying assist 3 The helper provides less than half the effort to complete the activity 2 The helper provides more than half the effort to complete the activity 1 Dependent. The helper does all the effort to complete an activity 7 Patient refused to complete or attempt activity 9 The patient did not perform the activity before the current illness or injury 88 Not attempted due to Medical conditions or safety concerns Eating (FIM): 1 Grooming (FIM): 1 Education OT Patient Education: Rehab process Teaching Recipient: Patient Teaching Methods: Discussion Response to Teaching: Unable to Comprehend OT Short Term Goals Short Term Goals Transfers (B,C,W/C) (FIM): 3 1=Demonstrate adherence to instructed precautions during ADL tasks. 2=Patient will verbalize/demonstrate understanding of assistive devices/ modifications for ADL. 3=Patient will improve strength/tolerance for activity to enable patient to perform ADL's. OT Shelter Goals Shelter Goals Time Frame: Jan 03, 2018 Eating (FIM): 3 Grooming(FIM): 3 Upper Body Dressing(FIM): 3 Toilet/Commode Transfer(FIM): 2 Additional Goals: 1-Demonstrate ADL Tasks, 2-Verbalize Understanding, 3- ImproveStrength/Nancy 1=Demonstrate adherence to instructed precautions during ADL tasks. 2=Patient will verbalize/demonstrate understanding of assistive devices/ modifications for ADL. 3=Patient will improve strength/tolerance for activity to enable patient to perform ADL's. OT Education/Plan Problem List/Assessment Assessment: Decreased Activ Tolerance, Decreased Safety Aware, Decreased UE Strength, Dependent Transfers, Impaired Bed Mobility, Impaired Cognition, Impaired Coordination, Impaired Funct Balance, Impaired I ADL's, Impaired Self- Care Skills Pt is lethargic and demonstrates impaired ability to perform functional tasks and mobility. Will attempt to increase level of activity as pt able to tolerate and participate. Pt to benefit from skilled OT intervention for ADL training, transfers, strengthening, and home safety education to decrease level of caregiver burden and allow safe discharge plan. Discharge Recommendations Plan/Recommendations: Continue POC Treatment Plan/Plan of Care Treatment,Training & Education: Yes Patient would benefit from OT for education, treatment and training to promote independence in ADL's, mobility, safety and/or upper extremity function for ADL' s. Plan of Care: ADL Retraining, Functional Mobility, UE Funct Exercise/Act Treatment Duration: Jan 03, 2018 Frequency: 5 times per week Estimated Hrs Per Day: .25 hour per day Rehab Potential: Poor Time/GCodes Start Time: 13:54 Stop Time: 14:07 Total Time Billed (hr/min): 13 Billed Treatment Time 1 visit, [facility](13minutes) MALINA BLANCO OT Dec 20, 2017 14:20
[2017-12-20 16:30] VITALS: BP 103/53
[2017-12-21 00:09] VITALS: BP 105/56
[2017-12-21] MEDS: NYSTATIN ORAL SUSP 5 ML UDC PO SCH ×4 (06:03→22:48)
[2017-12-21] MEDS: FLUDROCORTISONE 0.1 MG (FLORINEF) TAB PO SCH (06:03)
[2017-12-21 07:14] LABS: BASOPHILS % (AUTO) 0 % (0-10); EOSINOPHILS # (AUTO) 0.1 10^3/uL (0.0-0.3); EOSINOPHILS % (AUTO) 2 % (0-10); HEMATOCRIT 23 % (35-52); HEMOGLOBIN 7.6 G/DL (11.5-16.0); LYMPHOCYTES # (AUTO) 0.7 X 10^3 (1.0-4.0); LYMPHOCYTES % (AUTO) 13 % (12-44); MEAN CORPUSCULAR HEMOGLOBIN 35 PG (25-34); MEAN CORPUSCULAR HGB CONC 33 G/DL (32-36); MEAN CORPUSCULAR VOLUME 106 FL (80-99); MONOCYTES # (AUTO) 0.7 X 10^3 (0.0-1.0); MONOCYTES % (AUTO) 13 % (0-12); NEUTROPHILS # (AUTO) 3.8 X 10^3 (1.8-7.8); NEUTROPHILS % (AUTO) 72 % (42-75); PLATELET COUNT 93 10^3/uL (130-400); WHITE BLOOD COUNT 5.3 10^3/uL (4.3-11.0)
[2017-12-21 07:30] LABS: ALBUMIN 1.9 GM/DL (3.2-4.5); BILIRUBIN,TOTAL 2.1 MG/DL (0.1-1.0); CALCIUM 8.1 MG/DL (8.5-10.1); CREATININE SERUM 1.38 MG/DL (0.60-1.30); POTASSIUM 3.6 MMOL/L (3.6-5.0); TOTAL PROTEIN 5.3 GM/DL (6.4-8.2)
--- NOTE | 2017-12-21 07:56 | Progress Note-Hospitalist ---
Subjective HPI/CC On Admission Date Seen by Provider: Dec 21, 2017 Time Seen by Provider: 07:52 CC: AMS with bloody stools. Subjective/Events-last exam Pt again more conversant but quickly falls back asleep. No complaints. States abdomen feels better. Objective Exam Vital Signs Vital Signs Date Time Temp Pulse Resp B/P (MAP) Pulse Ox O2 Delivery O2 Flow Rate FiO2 12/21/17 00:09 98.3 89 17 105/56 (72) 94 Room Air Capillary Refill : Less Than 3 SecondsLess Than 3 Seconds General Appearance: No Apparent Distress, Chronically ill Respiratory: Lungs Clear, No Respiratory Distress Cardiovascular: Regular Rate, Rhythm, No Murmur Gastrointestinal: Normal Bowel Sounds, Non Tender, Soft Extremity: Non Tender, Pedal Edema Neurologic/Psychiatric: Alert, Oriented x3 Results/Procedures Lab Laboratory Tests 12/21/17 06:42 Patient resulted labs reviewed. Assessment/Plan Assessment and Plan Assess & Plan/Chief Complaint ESLD Critical Care Critical Care: Critically Ill Patient Diagnosis/Problems Diagnosis/Problems (1) End stage liver disease Status: Acute Assessment & Plan: Dr Walker discussed case with Dr Solares who agrees with plan of care- no changes to make Records from this hospitalization sent to Dr Solares for review Liver function studies remains abnormal Discussed with family and plan to DC home when medically stable as they do not want her in another usp and children plan to provide 24/7 care/supervision (2) Ascites Assessment & Plan: Cont oral lasix Cont home spironolactone s/p paracentesis with nearly 10L drained tolerated large volume removal without colloid replacement If becomes hypotensive will give albumin Qualifiers: Ascites type: other type Qualified Codes: R18.8 - Other ascites (3) Anemia Status: Acute Assessment & Plan: Relatively stable this AM Hold anticoagulation Surgery consulted, appreciate recs and plan to continue on conservative treatment Qualifiers: Anemia type: unspecified type Qualified Codes: D64.9 - Anemia, unspecified (4) Urinary tract infection Status: Acute Assessment & Plan: Continue on Rocephin- completes tomorrow Lactobacillus growing on culture Qualifiers: Urinary tract infection type: acute cystitis Hematuria presence: with hematuria Qualified Codes: N30.01 - Acute cystitis with hematuria (5) Encephalopathy Status: Acute Assessment & Plan: Improving despite increasing ammonia level Continue Lactulose goal 2-3 BMs/day Clinical Quality Measures DVT/VTE Risk/Contraindication: Risk Factor Score Per Nursin RFS Level Per Nursing on Admit: 4+=Very High FELICITA MONTERO MD Dec 21, 2017 7:56 am
[2017-12-21 08:00] VITALS: BP 110/63
[2017-12-21] MEDS: cefTRIAXone FOR IV USE 1,000 MG in NS (IVPB) 50 ML IV SCH (09:08)
[2017-12-21] MEDS: LACTULOSE SYRUP 10GM/15ML (ENULOSE) 30ML UDC PO SCH ×2 (09:08→21:10)
[2017-12-21] MEDS: FUROSEMIDE 40 MG (LASIX) TAB PO SCH (09:09)
[2017-12-21] MEDS: SPIRONOLACTONE 100 MG (ALDACTONE) TABLET PO SCH (09:09)
[2017-12-21] MEDS: LEVOTHYROXINE 50 MCG (LEVOTHROID) TAB PO SCH (09:09)
--- NOTE | 2017-12-21 10:23 | Physical Therapy Daily Note ---
PT Daily Note-Current Subjective Patient is in bed with family in room. Both agree to PT. Pain Numeric Pain Scale: 0-No Pain Location: No Pain Reported Mental Status Patient Orientation: Confused Attachments: Drains, Anaya Catheter, IV Transfers Functional [place] Measure 0=Not Assessed/NA 4=Minimal Assistance 1=Total Assistance 5=Supervision or Setup 2=Maximal Assistance 6=Modified [place] 3=Moderate Assistance 7=Complete IndependenceIRFPAI Quality Coding Scale 6 Independent with activity with or without an assistive device 5 Patient requires set up or clean up by helper. Patient completes activity by themselves 4 Supervision or touching assist (CGA). [place] provide cues , steadying assist 3 The helper provides less than half the effort to complete the activity 2 The helper provides more than half the effort to complete the activity 1 Dependent. The helper does all the effort to complete an activity 7 Patient refused to complete or attempt activity 9 The patient did not perform the activity before the current illness or injury 88 Not attempted due to Medical conditions or safety concerns Transfers (B, C, W/C) (FIM): 1 Scootin Rollin Supine to/from Sit: 1 Sit to/from Stand: 1 Bed to/from Chair: 1 Patient sat EOB x 15 min dependent assist with "slumped" posture and cervical flexion due to weakness/patient incontinent BM requiring dependent assist with sit to stand and with cleansing. Weight Bearing Right Lower Extremity: Right Weight Bearing/Tolerated Left Lower Extremity: Left Weight Bearing/Tolerated Exercises Seated Therapy Exercises: Ankle pumps, Long arc quads Seated Reps: 15 (PROM) Assessment Patient is up in recliner with needs met. Patient is extremely deconditioned and requires dependent assist with all mobility. PT discussed with family on care at home requiring Saurabh lift for patient and caregiver safety. Dr. Gaytan and SW notified. PT Short Term Goals Short Term Goals Time Frame: Dec 27, 2017 Transfers (B,C,W/C) (FIM): 3 PT Plan Treatment/Plan Treatment Plan: Continue Plan of Care Treatment Plan: Bed Mobility, Concurrent Therapy, Education, Functional Activity Nancy, Functional Strength, Gait, Safety, Therapeutic Exercise, Transfers Treatment Duration: Dec 27, 2017 Frequency: 6 times per week Estimated Hrs Per Day: .25 hour per day (15-30') Patient and/or Family Agrees t: Yes Time/GCodes Time In: 912 Time Out: 935 Total Billed Treatment Time: 23 Total Billed Treatment 1 visit FA x 2 23 min MORA LAND PT Dec 21, 2017 10:23
[2017-12-21] MEDS ORDERED: [UNRECOGNIZED DRUG - OTHER] (11:14)
[2017-12-21] MEDS ORDERED: hospital bed (11:14)
[2017-12-21] MEDS ORDERED: WHEE1EAC3 MC (11:14)
--- NOTE | 2017-12-21 14:37 | Occupational Ther Daily Note ---
OT Current Status-Daily Note Subjective Pt. opens eyes intermittently but does not respond to OT. Appearance Pt. asleep in bed. Family agrees to let OT perform UE PROM. Mental Status/Objective Patient Orientation: Unresponsive Functional [place] Measure 0=Not Assessed/NA 4=Minimal Assistance 1=Total Assistance 5=Supervision or Setup 2=Maximal Assistance 6=Modified [place] 3=Moderate Assistance 7=Complete [place] Other Treatment OT performs gentle PROM to bilateral UE in all planes to provide comfort and stretch. Completed gentle shoulder flexion to approximately 70 degrees. Noted rigidity with elbow flexion past 90 degrees. Completed internal and external rotation of shoulder, as well as gentle wrist flexion/extension, and finger flexion. OT asks family if they would like pt. re-positioned in bed. Family states that she was just put back to bed, so has not been in that position long. All needs met. Education OT Patient Education: Correct positioning, Exercise program, Rehab process Teaching Recipient: Patient, Family Teaching Methods: Discussion Response to Teaching: Unable to Return Demonstration OT Short Term Goals Short Term Goals Transfers (B,C,W/C) (FIM): 3 1=Demonstrate adherence to instructed precautions during ADL tasks. 2=Patient will verbalize/demonstrate understanding of assistive devices/ modifications for ADL. 3=Patient will improve strength/tolerance for activity to enable patient to perform ADL's. OT Intermediate Goals Records Management Clerk Goals Time Frame: Jan 03, 2018 Eating (FIM): 3 Grooming(FIM): 3 Upper Body Dressing(FIM): 3 Toilet/Commode Transfer(FIM): 2 Additional Goals: 1-Demonstrate ADL Tasks, 2-Verbalize Understanding, 3- ImproveStrength/Nancy 1=Demonstrate adherence to instructed precautions during ADL tasks. 2=Patient will verbalize/demonstrate understanding of assistive devices/ modifications for ADL. 3=Patient will improve strength/tolerance for activity to enable patient to perform ADL's. OT Education/Plan Problem List/Assessment Assessment: Decreased Activ Tolerance, Decreased Safety Aware, Decreased UE Strength, Dependent Transfers, Impaired Bed Mobility, Impaired Cognition, Impaired Coordination, Impaired Funct Balance, Impaired I ADL's, Impaired Self- Care Skills, Restricted Funct UE ROM Pt is lethargic and demonstrates impaired ability to perform functional tasks and mobility. Will attempt to increase level of activity as pt able to tolerate and participate. Pt to benefit from skilled OT intervention for ADL training, transfers, strengthening, and home safety education to decrease level of caregiver burden and allow safe discharge plan. Discharge Recommendations Plan/Recommendations: Continue POC Therapy D/C Recommendations: 24 hr Supervision Treatment Plan/Plan of Care Treatment,Training & Education: Yes Patient would benefit from OT for education, treatment and training to promote independence in ADL's, mobility, safety and/or upper extremity function for ADL' s. Plan of Care: Functional Mobility, UE Funct Exercise/Act Treatment Duration: Jan 03, 2018 Frequency: 5 times per week Estimated Hrs Per Day: .25 hour per day Agreement: Yes Rehab Potential: Guarded Time/GCodes Start Time: 13:30 Stop Time: 13:45 Total Time Billed (hr/min): 15 Billed Treatment Time 1, Ex x 15minutes HARLEEN TERRY OT Dec 21, 2017 14:37
--- NOTE | 2017-12-21 15:29 | Progress Note (SOAP) ---
Subjective Date Seen by Provider: Dec 21, 2017 Time Seen by Provider: 15:00 Subjective/Events-last exam doing better today. much less abdominal distention and patient more comfortable. Objective Exam Vital Signs Date Time Temp Pulse Resp B/P (MAP) Pulse Ox O2 Delivery O2 Flow Rate FiO2 12/21/17 08:00 Room Air 12/21/17 08:00 99.4 87 16 110/63 (79) 93 Room Air 12/21/17 00:09 98.3 89 17 105/56 (72) 94 Room Air 12/20/17 20:09 Room Air 12/20/17 16:30 97.4 87 20 103/53 (70) 95 Room Air I & O 12/21/17 07:00 Intake Total 1200 ml Output Total 64054 ml Balance -9325 ml Capillary Refill : Less Than 3 SecondsLess Than 3 Seconds General Appearance: No Apparent Distress HEENT: PERRL/EOMI Neck: Full Range of Motion Respiratory: Chest Non Tender, Lungs Clear, Normal Breath Sounds Cardiovascular: Regular Rate, Rhythm Gastrointestinal: normal bowel sounds, non tender, soft Extremity: Normal Capillary Refill Neurologic/Psychiatric: Alert, Oriented x3 Skin: Normal Color Lymphatic: No Adenopathy Results Lab Laboratory Tests 12/21/17 06:42: White Blood Count 5.3, Red Blood Count 2.20L, Hemoglobin 7.6L, Hematocrit 23L, Mean Corpuscular Volume 106H, Mean Corpuscular Hemoglobin 35H, Mean Corpuscular Hemoglobin Concent 33, Red Cell Distribution Width 19.0H, Platelet Count 93L, Mean Platelet Volume 10.0, Neutrophils (%) (Auto) 72, Lymphocytes (%) (Auto) 13 , Monocytes (%) (Auto) 13H, Eosinophils (%) (Auto) 2, Basophils (%) (Auto) 0, Neutrophils # (Auto) 3.8, Lymphocytes # (Auto) 0.7L, Monocytes # (Auto) 0.7, Eosinophils # (Auto) 0.1, Basophils # (Auto) 0.0, Sodium Level 136, Potassium Level 3.6, Chloride Level 108H, Carbon Dioxide Level 20L, Anion Gap 8, Blood Urea Nitrogen 27H, Creatinine 1.38H, Estimat Glomerular Filtration Rate 37, BUN/ Creatinine Ratio 20, Glucose Level 138H, Calcium Level 8.1L, Corrected Calcium 9.8, Total Bilirubin 2.1H, Aspartate Amino Transf (AST/SGOT) 37H, Alanine Aminotransferase (ALT/SGPT) 21, Alkaline Phosphatase 250H, Ammonia 66H, Total Protein 5.3L, Albumin 1.9L Microbiology 12/15/17 MRSA Screen - Final, Complete MRSA not isolated 12/15/17 Urine Culture - Final, Complete Lactobacillus species See Comments Assessment/Plan Assessment/Plan Assess & Plan/Chief Complaint symptomatic ascites secondary AGUIRRE cirrhosis s/p paracentesis. doing better. toleratin diet. abdomen much less distended. no rectal bleed. home vs rehab transfer ok at any time. f/u if abdominal distention reoccurs. Clinical Quality Measures DVT/VTE Risk/Contraindication: Risk Factor Score Per Nursin RFS Level Per Nursing on Admit: 4+=Very High AMINATA PETERSON MD Dec 21, 2017 3:29 pm
[2017-12-21 15:34] VITALS: BP 111/60
[2017-12-22 00:46] VITALS: BP 117/55
[2017-12-22 05:55] LABS: BASOPHILS % (AUTO) 0 % (0-10); EOSINOPHILS # (AUTO) 0.1 10^3/uL (0.0-0.3); EOSINOPHILS % (AUTO) 2 % (0-10); HEMATOCRIT 25 % (35-52); HEMOGLOBIN 8.5 G/DL (11.5-16.0); LYMPHOCYTES # (AUTO) 0.9 X 10^3 (1.0-4.0); LYMPHOCYTES % (AUTO) 18 % (12-44); MEAN CORPUSCULAR HEMOGLOBIN 36 PG (25-34); MEAN CORPUSCULAR HGB CONC 34 G/DL (32-36); MEAN CORPUSCULAR VOLUME 105 FL (80-99); MEAN PLATELET VOLUME 9.9 FL (7.4-10.4); MONOCYTES # (AUTO) 0.7 X 10^3 (0.0-1.0); MONOCYTES % (AUTO) 14 % (0-12); NEUTROPHILS # (AUTO) 3.3 X 10^3 (1.8-7.8); NEUTROPHILS % (AUTO) 66 % (42-75); PLATELET COUNT 81 10^3/uL (130-400); RED BLOOD COUNT 2.38 10^6/uL (4.35-5.85); RED CELL DISTRIBUTION WIDTH 19.2 % (10.0-14.5)
[2017-12-22] MEDS: NYSTATIN ORAL SUSP 5 ML UDC PO SCH ×2 (06:06→12:22)
[2017-12-22] MEDS: FLUDROCORTISONE 0.1 MG (FLORINEF) TAB PO SCH (06:06)
[2017-12-22 06:13] LABS: ALBUMIN 1.8 GM/DL (3.2-4.5); BILIRUBIN,TOTAL 1.9 MG/DL (0.1-1.0); CALCIUM 8.1 MG/DL (8.5-10.1); CREATININE SERUM 1.46 MG/DL (0.60-1.30); POTASSIUM 3.6 MMOL/L (3.6-5.0); TOTAL PROTEIN 5.1 GM/DL (6.4-8.2)
--- NOTE | 2017-12-22 07:32 | Discharge Summary-Hospitalist ---
Diagnosis/Chief Complaint Date of Admission Dec 15, 2017 at 11:50 am Date of Discharge Discharge Date: Dec 22, 2017 Admission Diagnosis GI bleeding Lethargy Discharge Diagnosis (1) End stage liver disease Status: Acute Assessment & Plan: Dr Walker discussed case with Dr Solares who agrees with plan of care- no changes to make Records from this hospitalization sent to Dr Solares for review Liver function studies remains abnormal Discussed with family and plan to DC home when medically stable as they do not want her in another residential and children plan to provide 24/7 care/supervision (2) Ascites Assessment & Plan: Cont oral lasix Cont home spironolactone s/p paracentesis with nearly 10L drained tolerated large volume removal without colloid replacement If becomes hypotensive will give albumin (3) Anemia Status: Acute Assessment & Plan: Relatively stable this AM Hold anticoagulation Surgery consulted, appreciate recs and plan to continue on conservative treatment (4) Urinary tract infection Status: Acute Assessment & Plan: Continue on Rocephin- completes tomorrow Lactobacillus growing on culture (5) Encephalopathy Status: Acute Assessment & Plan: Improving despite increasing ammonia level Continue Lactulose goal 2-3 BMs/day Discharge Summary Procedures/Consulations Dr Urbina and Dr Ramos- General Surgery Discharge Physical Exam Allergies: Coded Allergies: hydroxyzine (Unverified Adverse Reaction, Intermediate, ALTERED MENTAL STATUS, 09/06/13) Penicillins (Unverified Adverse Reaction, Unknown, 09/06/13) Vitals & I&Os Vital Signs Date Time Temp Pulse Resp B/P (MAP) Pulse Ox O2 Delivery O2 Flow Rate FiO2 12/22/17 00:46 97.9 79 19 117/55 (75) 94 Room Air General Appearance: No Apparent Distress, Chronically ill Respiratory: Lungs Clear, No Respiratory Distress Cardiovascular: Regular Rate, Rhythm, No Murmur Neurologic/Psychiatric: Alert, Oriented x3 Hospital Course Pt was admitted for rectal bleeding and found to have hepatic encephalopathy. Discussions were had about goals of care and family and patient elected continued aggressive treatment at this time. After correction of her coagulopathy her bleeding stopped and her hemoglobin remained stable throughout admission near 8. Her encephalopathy improved as well with lactulose. She did have significant ascites as well that was resistant to diuretic therapy and Dr Ramos performed a paracentesis on 12/20 with over 10L drained. Due to her prolonged illness between here and her previous hospitalization at [facility] for a broken hip she is severely deconditioned with inability to turn self even. SNF was recommended but family has elected to return home as they were recently in a nursing facility and unhappy with the level of care. They plan to provide 24/7 care in addition to home health therapy and nursing services. Due to her condition and inability ot turn herself a hospital bed has been order for frequent changes in body position for bed sores that would otherwise not be manageable with a regular bed. She will also require a saurabh lift for transfers from bed to wheelchair again due to her severe deconditioning. We have also ordered a wheelchair due to her recent hip fracture and debility as a cane or walker are insufficient to resolve her mobility limitation. She is to follow up with Dr Watson and Dr Solares to follow up this hospital stay. Labs (last 24 hrs) Laboratory Tests 12/22/17 05:50: White Blood Count 5.0, Red Blood Count 2.38L, Hemoglobin 8.5L, Hematocrit 25L, Mean Corpuscular Volume 105H, Mean Corpuscular Hemoglobin 36H, Mean Corpuscular Hemoglobin Concent 34, Red Cell Distribution Width 19.2H, Platelet Count 81L, Mean Platelet Volume 9.9, Neutrophils (%) (Auto) 66, Lymphocytes (%) (Auto) 18, Monocytes (%) (Auto) 14H, Eosinophils (%) (Auto) 2, Basophils (%) (Auto) 0, Neutrophils # (Auto) 3.3, Lymphocytes # (Auto) 0.9L, Monocytes # (Auto) 0.7, Eosinophils # (Auto) 0.1, Basophils # (Auto) 0.0, Sodium Level 134L, Potassium Level 3.6, Chloride Level 106, Carbon Dioxide Level 19L, Anion Gap 9, Blood Urea Nitrogen 27H, Creatinine 1.46H, Estimat Glomerular Filtration Rate 35, BUN/ Creatinine Ratio 18, Glucose Level 169H, Calcium Level 8.1L, Corrected Calcium 9.9, Total Bilirubin 1.9H, Aspartate Amino Transf (AST/SGOT) 41H, Alanine Aminotransferase (ALT/SGPT) 26, Alkaline Phosphatase 233H, Ammonia 81H, Total Protein 5.1L, Albumin 1.8L Microbiology 12/15/17 MRSA Screen - Final, Complete MRSA not isolated 12/15/17 Urine Culture - Final, Complete Lactobacillus species See Comments Patient resulted labs reviewed. Pending Labs Laboratory Tests 12/22/17 05:50: White Blood Count 5.0, Red Blood Count 2.38, Hemoglobin 8.5, Hematocrit 25, Mean Corpuscular Volume 105, Mean Corpuscular Hemoglobin 36, Mean Corpuscular Hemoglobin Concent 34, Red Cell Distribution Width 19.2, Platelet Count 81, Mean Platelet Volume 9.9, Neutrophils (%) (Auto) 66, Lymphocytes (%) (Auto) 18, Monocytes (%) (Auto) 14, Eosinophils (%) (Auto) 2, Basophils (%) (Auto) 0, Neutrophils # (Auto) 3.3, Lymphocytes # (Auto) 0.9, Monocytes # (Auto) 0.7, Eosinophils # (Auto) 0.1, Basophils # (Auto) 0.0, Sodium Level 134, Potassium Level 3.6, Chloride Level 106, Carbon Dioxide Level 19, Anion Gap 9, Blood Urea Nitrogen 27, Creatinine 1.46, Estimat Glomerular Filtration Rate 35, BUN/ Creatinine Ratio 18, Glucose Level 169, Calcium Level 8.1, Corrected Calcium 9.9 , Total Bilirubin 1.9, Aspartate Amino Transf (AST/SGOT) 41, Alanine Aminotransferase (ALT/SGPT) 26, Alkaline Phosphatase 233, Ammonia 81, Total Protein 5.1, Albumin 1.8 Discussion & Recommendations Discharge Planning: >30 minutes discharge planning Pt is suffering from end stage liver disease and is likely very close to . Discussions where had with patient and family by my partner, Dr Walker, the palliative care nurse, and myself and family has elected to continue with aggressive treatments in hopes of recovery. We discussed at length that at some point this treatments may become futile and they seemed to understand that but would like to pursue curative treatment until that time. Discharge Home Medications: Active Scripts Active [hospital bed] Wheelchair 1 Each Each Each DAILY use for transport [Saurabh Lift] Reported Furosemide 20 Mg Tablet 20 Mg PO DAILY Spironolactone 100 Mg Tablet 100 Mg PO DAILY Calcium Carbonate 600 Mg Tablet 600 Mg PO HS Crestor (Rosuvastatin Calcium) 20 Mg Tablet 20 Mg PO HS Glipizide 5 Mg Tablet 5 Mg PO DAILY Escitalopram Oxalate 20 Mg Tablet 20 Mg PO DAILY Xarelto (Rivaroxaban) 10 Mg Tablet 10 Mg PO DAILY Levothyroxine Sodium 50 Mcg Tablet 50 Mcg PO DAILY Fludrocortisone Acetate 0.1 Mg Tab 0.1 Mg PO DAILY Instructions to patient/family Please see electronic discharge instructions given to patient. Clinical Quality Measures DVT/VTE Risk/Contraindication: Risk Factor Score Per Nursin RFS Level Per Nursing on Admit: 4+=Very High Problem Qualifiers (1) Ascites: Ascites type: other type Qualified Codes: R18.8 - Other ascites (2) Anemia: Anemia type: unspecified type Qualified Codes: D64.9 - Anemia, unspecified (3) Urinary tract infection: Urinary tract infection type: acute cystitis Hematuria presence: with hematuria Qualified Codes: N30.01 - Acute cystitis with hematuria FELICITA MONTERO MD Dec 22, 2017 7:32 am
--- NOTE | 2017-12-22 07:39 | D/C HH Face to Face Order ---
D/C Face to Face Orders Instructions for Patient Patient Instructions/FollowUp: Please continue to take your medications as written. Please follow up with your primary care provider, your orthopedic surgeron, and your GI doctor as scheduled. Physician to follow Patient: Dr Watson Discharge Diet for Home: Low Sodium Diet Patient Problems: ESLD, Hepatic encephalopathy, Hip fracture Patient Data-Allergies,Ht & Wt Patient Allergies: Coded Allergies: hydroxyzine (Unverified Adverse Reaction, Intermediate, ALTERED MENTAL STATUS, 09/06/13) Penicillins (Unverified Adverse Reaction, Unknown, 09/06/13) Height (Feet): 5 Height (Inches): 4.00 Weight (Pounds): 145 Weight (Ounces): 2.0 Home Health Need/Face to Face Date of Face to Face: Dec 22, 2017 Clinical Findings: Generalized weakness and fatigue, Muscle weakness I have seen Pt [id number]: Yes Discharged To: Home Diagnosis/Conditions: ESLD, Hepatic encephalopathy, hip fracture, debility Patient is Homebound due to: Dionte fall risk due to instabilty, Muscle weakness Homebound Status Due to the above stated illness, injury or surgical procedure (medical condition or diagnosis) and associated clinical findings, the patient is homebound because of his/her inability to leave home except with aid of a supportive device and/or person AND leaving the home requires a considerable and taxing effort or is medically contraindicated. Pt req the following assistanc: Aid of another person, Wheelchair Home Health Nursing Orders Home Health Services Order: Nursing Services, Manager [employer]-Evaluate & Treat, Physical Therapy-Evaluate & Treat Home Health Infusion Therapy Line Start Date: Dec 15, 2017 Line Start Time: 1120 Line Type: Saline Lock Site Location: Femoral Therapy Orders Therapy Orders: OT (must have SN or PT order), Physical Therapy Therapy Specific Orders: Eval assistive deivces, Teach enviro modifications/ safety, Increase strength/endurance Certify Stmt I certify that this patient is under my care and that I, a physician, had a face to face encounter that -meets the physician face to face encounter requirements with this patient as dated. FEILCITA MONTERO MD Dec 22, 2017 7:39 am
[2017-12-22] MEDS ORDERED: NYST1000 PO (07:42)
[2017-12-22] MEDS ORDERED: FURO40TA4 PO (07:42)
[2017-12-22] MEDS ORDERED: LACT20SO2 PO (07:42)
[2017-12-22 08:00] VITALS: BP 93/54
[2017-12-22] MEDS: cefTRIAXone FOR IV USE 1,000 MG in NS (IVPB) 50 ML IV SCH (09:21)
[2017-12-22] MEDS: LEVOTHYROXINE 50 MCG (LEVOTHROID) TAB PO SCH (09:21)
[2017-12-22] MEDS: SPIRONOLACTONE 100 MG (ALDACTONE) TABLET PO SCH (09:21)
[2017-12-22] MEDS: FUROSEMIDE 40 MG (LASIX) TAB PO SCH (09:21)
[2017-12-22] MEDS: LACTULOSE SYRUP 10GM/15ML (ENULOSE) 30ML UDC PO SCH (09:21)
--- NOTE | 2017-12-22 09:25 | Physical Therapy Daily Note ---
PT Daily Note-Current Subjective Pt laying L sidelying with [employer] present upon arrival. Pt agrees to PT for positioning. PT due to discharge today. Pain Location Body Site: Abdomen Pain Description: Ache Comment: Pt not able to rate though, based on facial grimaces. Mental Status Patient Orientation: Person Transfers Functional [place] Measure 0=Not Assessed/NA 4=Minimal Assistance 1=Total Assistance 5=Supervision or Setup 2=Maximal Assistance 6=Modified [place] 3=Moderate Assistance 7=Complete IndependenceIRFPAI Quality Coding Scale 6 Independent with activity with or without an assistive device 5 Patient requires set up or clean up by helper. Patient completes activity by themselves 4 Supervision or touching assist (CGA). [place] provide cues , steadying assist 3 The helper provides less than half the effort to complete the activity 2 The helper provides more than half the effort to complete the activity 1 Dependent. The helper does all the effort to complete an activity 7 Patient refused to complete or attempt activity 9 The patient did not perform the activity before the current illness or injury 88 Not attempted due to Medical conditions or safety concerns Rollin Weight Bearing Right Lower Extremity: Right Weight Bearing/Tolerated Left Lower Extremity: Left Weight Bearing/Tolerated Treatments [employer] is asked to assist [employer] with rolling pt from L sidelying to R sidelying. Pt is wet so [employer] & [employer] assist pt with donning new gown and changing bed pad under pt since urine & BM covered. Pt is repositioned to R sidelying with 2 pillows under pt. Pt is resting at end of tx with all needs met and [employer] present. Assessment Current Status: Fair Progress Pt is fatigued and very weak. PT Short Term Goals Short Term Goals Time Frame: Dec 27, 2017 Transfers (B,C,W/C) (FIM): 3 PT Plan Problem List Problem List: Activity Tolerance, Functional Strength, Safety, Balance, Transfer, Bed Mobility Treatment/Plan Treatment Plan: Continue Plan of Care Treatment Plan: Bed Mobility, Concurrent Therapy, Education, Functional Activity Nancy, Functional Strength, Gait, Safety, Therapeutic Exercise, Transfers Treatment Duration: Dec 27, 2017 Frequency: 6 times per week Estimated Hrs Per Day: .25 hour per day (15-30') Patient and/or Family Agrees t: Yes Safety Risks/Education Patient Education: Correct Positioning, Safety Issues Teaching Recipient: Patient Teaching Methods: Discussion Response to Teaching: Reinforcement Needed Time/GCodes Time In: 835 Time Out: 855 Total Billed Treatment Time: 20 Total Billed Treatment 1, FA (20m) G Codes Necessary: KASANDRA Durham PTA Dec 22, 2017 09:25
[2017-12-22] MEDS ORDERED: OXYC5CAP18 PO (09:29)
== END 2017-12-22 14:27 | disposition home health service (06) | DRG 441 ==
LOC: EDUNIT# 11:09 → ER 11:11 → ICU 11:50 → 4TH 12-16 14:00
PROVIDERS: ADMIT Internal Medicine; ATTEND Internal Medicine
PROC: 0W9G30Z Drainage of Peritoneal Cavity with Drainage Device, Percutaneous Approach (ICD-10-PCS; principal; 2017-12-20)
DX: K75.81 Nonalcoholic steatohepatitis (NASH) (principal); K76.7 Hepatorenal syndrome; K76.6 Portal hypertension; K92.2 Gastrointestinal hemorrhage, unspecified; G93.41 Metabolic encephalopathy; K72.90 Hepatic failure, unspecified without coma; R18.8 Other ascites; N17.9 Acute kidney failure, unspecified; Z66 Do not resuscitate; N30.01 Acute cystitis with hematuria; E87.1 Hypo-osmolality and hyponatremia; D64.9 Anemia, unspecified; D69.59 Other secondary thrombocytopenia; R79.1 Abnormal coagulation profile; E11.9 Type 2 diabetes mellitus without complications; E78.00 Pure hypercholesterolemia, unspecified; E03.9 Hypothyroidism, unspecified; F41.9 Anxiety disorder, unspecified; F32.9 Major depressive disorder, single episode, unspecified; F03.90 Unspecified dementia, unspecified severity, without behavioral disturbance, psychotic disturbance, mood disturbance, and anxiety; M19.91 Primary osteoarthritis, unspecified site; L30.9 Dermatitis, unspecified; K57.90 Diverticulosis of intestine, part unspecified, without perforation or abscess without bleeding; R53.81 Other malaise; Z79.01 Long term (current) use of anticoagulants; Z79.84 Long term (current) use of oral hypoglycemic drugs; Z96.642 Presence of left artificial hip joint
CPT/HCPCS: 36415; 51702; 70450; 71045; 76705; 80053; 81000; 82140; 83735; 84100; 84439; 84443; 85014; 85018; 85025; 85610; 85730; 86850; 86900; 86901; 86920; 87081; 87088; 96365; 96375

== ENCOUNTER 2017-12-26 15:54 | Observation (INO) | payer MEDICARE, MEDICAID ==
[~2017-12-26] VITALS: Ht 162.6 cm; Wt 57.6 kg
[~2017-12-26 15:54] MED LIST changes: +CALC600T80 PO; +ESCI20TA45 PO; +FLDR.1T PO; +FURO20TA4 PO; +FURO40TA4 PO; +GLIP5TAB13 PO; +LACT20SO2 PO; +LEVO50TA6 PO; +NYST1000 PO; +OXYC5CAP18 PO; +RIVA10TA PO; +ROSU20TA PO; +SPIR100T4 PO; +WHEE1EAC3 MC; +[UNRECOGNIZED DRUG - OTHER]; +hospital bed
--- OUTSIDE RECORDS SUMMARY | 2017-12-26 16:00 | XMS REPORT | Continuity of Care Document ---
Author Author [facility] Address Unknown Phone Unavailable Allergies Active Description Code Type Severity Reaction Onset Reported/Identified Relationship to Patient Clinical Status Yes PENICILLINS UNKNOWN UNKNOWN Yes Penicillins Drug Allergy 07/04/2012 Yes Penicillins Drug Allergy N/A N/A 07/04/2012 Yes hydroxyzine [id number] Drug Allergy Moderate ALTERED MENTAL 09/06/2013 Yes Penicillins [id number] Drug Allergy Unknown N/A 09/06/2013 Medications Medication [...] 250.00 DIABETES MELLITUS TYPE 2 07/04/2012 CHUCK PSYCHOLOGICAL OPERATIONS OFFICER, TABBY S 272.4 HYPERLIPIDEMIA 07/04/2012 CHUCK PSYCHOLOGICAL OPERATIONS OFFICER, TABBY S 287.5 THROMBOCYTOPENIA 07/04/2012 CHUCK PERDOMO, TABBY S 300.4 DYSTHYMIC DISORDER 07/04/2012 CHUCK PSYCHOLOGICAL OPERATIONS OFFICER, TABBY S V70.0 EXAM - ROUTINE H&P 07/04/2012 CHUCK PSYCHOLOGICAL OPERATIONS OFFICER, TABBY S 244.9 HYPOTHYROIDISM 07/04/2012 CHUCK PERDOMO, TABBY S 250.00 DIABETES MELLITUS TYPE 2 07/04/2012 CHUCK PERDOMO, TABBY S 272.4 HYPERLIPIDEMIA 07/04/2012 CHUCK PERDOMO, TABBY S 287.5 THROMBOCYTOPENIA 07/04/2012 CHUCK PERDOMO, TABBY S 300.4 DYSTHYMIC DISORDER 07/04/2012 CHUCK PSYCHOLOGICAL OPERATIONS OFFICER, TABBY S V70.0 EXAM - ROUTINE H&P [...] Ot V58.69 OTH MED,LT,CURRENT USE 01/26/2013 CHUCK PSYCHOLOGICAL OPERATIONS OFFICER TABBY S 786.52 CHEST WALL PAIN 01/26/2013 CHUCK PSYCHOLOGICAL OPERATIONS OFFICER TABBY S 786.52 CHEST WALL PAIN 01/26/2013 CHUCK PSYCHOLOGICAL OPERATIONS OFFICER TABBY S 786.52 CHEST WALL PAIN 03/15/2013 CUHCK PSYCHOLOGICAL OPERATIONS OFFICER, TABBY S 780.93 MEMORY LOSS 03/15/2013 CHUCK PSYCHOLOGICAL OPERATIONS OFFICER, TABBY S 780.93 MEMORY LOSS 09/07/2013 SAMINA [...] 287.5 03/29/2014 Ot 288.00 03/29/2014 TABBY WOODS ENTERTAINMENT AGENT Ot 250.00 03/29/2014 TABBY WOODS ENTERTAINMENT AGENT Ot 786.52 03/29/2014 TABBY WOODS ENTERTAINMENT AGENT Ot 433.30 03/29/2014 TABBY WOODS ENTERTAINMENT AGENT Ot 780.93 03/29/2014 KRISTEN DAHL, AMINATA Ot [...] 287.5 01/31/2015 Ot 288.00 01/31/2015 TABBY WOODS ENTERTAINMENT AGENT Ot 250.00 01/31/2015 TABBY WOODS ENTERTAINMENT AGENT Ot 786.52 01/31/2015 TABBY WOODS ENTERTAINMENT AGENT Ot 433.30 01/31/2015 TABBY WOODS ENTERTAINMENT AGENT Ot 780.93 01/31/2015 KRISTEN DAHL, AMINATA Ot [...] GIDDINESS 11/30/2016 KALPANA JEAN MD Ot Z79.82 3RD PRESSMAN (CURRENT) USE OF ASPIRIN 11/30/2016 KALPANA JEAN MD Ot Z79.84 3RD PRESSMAN (CURRENT) USE OF ORAL HYPOGLYC 11/30/2016 KALPANA [...] ARTERY OCCLUSION WO CEREBRA 11/30/2016 CHUCK, TABBY ENTERTAINMENT AGENT Ot 780.93 MEMORY LOSS 11/30/2016 AMINATA PETERSON [...] MD Ot I25.10 ATHSCL HEART DISEASE OF [place] CORONARY 11/30/2016 DALLAS RUBIO MD Ot R07.89 [...] GIDDINESS 12/03/2016 KALPANA JEAN MD Ot Z79.82 SENIOR LIVING (CURRENT) USE OF ASPIRIN 12/03/2016 KALPANA JEAN MD Ot Z79.84 SENIOR LIVING (CURRENT) USE OF ORAL HYPOGLYC 12/03/2016 KALPANA JEAN MD Ot Z82.49 FAMILY HX OF [place] HEART DIS AND OTH DI 12/03/2016 KALPANA JEAN MD Ot Z87.19 PERSONAL HISTORY OF OTHER DISEASES OF TH 01/07/2017 DALLAS RUBIO MD Ot E78.5 HYPERLIPIDEMIA, UNSPECIFIED 01/07/2017 DALLAS RUBIO MD Ot I10 ESSENTIAL (PRIMARY) HYPERTENSION 01/07/2017 DALLAS RUBIO MD Ot I25.10 ATHSCL HEART DISEASE OF [place] CORONARY 01/07/2017 DALLAS RUBIO MD Ot R00.2 PALPITATIONS 01/07/2017 DALLAS RUBIO MD Ot R07.89 OTHER CHEST PAIN 01/12/2017 DALLAS RUBIO MD Ot E78.5 HYPERLIPIDEMIA, UNSPECIFIED 01/12/2017 DALLAS RUBIO MD Ot I10 ESSENTIAL (PRIMARY) HYPERTENSION 01/12/2017 DALLAS RUBIO MD Ot I25.10 ATHSCL HEART DISEASE OF [place] CORONARY 01/12/2017 DALLAS RUBIO MD Ot R00.2 PALPITATIONS 01/12/2017 DALLAS RUBIO MD Ot R07.89 OTHER CHEST PAIN 01/19/2017 Watler Estrella 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84 SENIOR LIVING (CURRENT) USE OF ORAL HYPOGLYC 02/07/2017 KALPANA JEAN MD Ot Z82.49 FAMILY HX OF ISCHE[place] HEART DIS AND OTH DI 02/07/2017 KALPANA JEAN MD Ot Z87.19 PERSONAL HISTORY OF OTHER DISEASES OF TH 02/08/2017 DALLAS RUBIO MD Ot E78.5 HYPERLIPIDEMIA, UNSPECIFIED 02/08/2017 DALLAS RUBIO MD Ot I10 ESSENTIAL (PRIMARY) HYPERTENSION 02/08/2017 DALLAS RUBIO MD Ot I25.10 ATHSCL HEART DISEASE OF [place] CORONARY 02/08/2017 DALLAS RUBIO MD Ot R00.2 PALPITATIONS 02/08/2017 DALLAS RUBIO MD Ot R07.89 OTHER CHEST PAIN 04/27/2017 DERRELL MONROY Ot D72.819 DECREASED WHITE BLOOD CELL COUNT, UNSPEC 04/27/2017 DERRELL MONROY Ot E78.5 HYPERLIPIDEMIA, UNSPECIFIED 04/27/2017 DERRELL MONROY Ot I10 ESSENTIAL (PRIMARY) HYPERTENSION 04/27/2017 DERRELL MONROY Ot R00.2 PALPITATIONS 04/27/2017 DERRELL MONROY Ot Z79.899 OTHER SENIOR LIVING (CURRENT) DRUG THERAPY 06/21/2017 DERRELL MONROY Ot D72.819 DECREASED WHITE BLOOD CELL COUNT, UNSPEC 06/21/2017 ELIANADERRELL N Ot E78.5 HYPERLIPIDEMIA, UNSPECIFIED 06/21/2017 ELIANA, BOBAN N Ot I10 ESSENTIAL (PRIMARY) HYPERTENSION 06/21/2017 ELIANA, BOBAN N Ot R00.2 PALPITATIONS 06/21/2017 ELIANA, BOBAN N Ot Z79.899 OTHER 3RD PRESSMAN (CURRENT) DRUG THERAPY 06/29/2017 ELIANA, BOBAN N Ot D72.819 DECREASED WHITE BLOOD CELL COUNT, UNSPEC 06/29/2017 ELIANA BOBAN N Ot E78.5 HYPERLIPIDEMIA, UNSPECIFIED 06/29/2017 ELIANA, BOBAN N Ot I10 ESSENTIAL (PRIMARY) HYPERTENSION 06/29/2017 ELIANA, BOBAN N Ot R00.2 PALPITATIONS 06/29/2017 ELIANA, BOBAN N Ot Z79.899 OTHER SENIOR LIVING (CURRENT) DRUG THERAPY 07/25/2017 ELIANA, BOBAN N Ot D72.819 DECREASED WHITE BLOOD CELL COUNT, UNSPEC 07/25/2017 ELIANA BOBKRISTINE N Ot E78.5 HYPERLIPIDEMIA, UNSPECIFIED 07/25/2017 ELIANA, BOBAN N Ot I10 ESSENTIAL (PRIMARY) HYPERTENSION 07/25/2017 ELIANA, BOBAN N Ot R00.2 PALPITATIONS 07/25/2017 ELIANA, BOBAN N Ot Z79.899 OTHER SENIOR LIVING (CURRENT) DRUG THERAPY 07/26/2017 ELIANA, BOBKRISTINE N Ot D72.819 DECREASED WHITE BLOOD CELL COUNT, UNSPEC 07/26/2017 ELIANA, BOBAN N Ot E78.5 HYPERLIPIDEMIA, UNSPECIFIED 07/26/2017 ELIANA, BOBAN N Ot I10 ESSENTIAL (PRIMARY) HYPERTENSION 07/26/2017 ELIANA, BOBAN N Ot R00.2 PALPITATIONS 07/26/2017 ELIANA, BOBAN N Ot Z79.899 OTHER SENIOR LIVING (CURRENT) DRUG THERAPY 11/20/2017 Julita Madrid A [...] Procedures Code Description [place] [address] A1C (IN-HOUSE) 07/04/2012 38181 ROUTINE VENIPUNCTURE 07/04/2012 94263 MICRO ALBUMIN-IN HOUSE 07/04/2012 93382 CMP 07/04/2012 13277 LIPID PANEL 07/04/2012 4749715 GFR CALC (RESULT ONLY) 07/04/2012 85850 CBC 07/04/2012 60777 TSH 07/04/2012 38124 XRAY CHEST 2 VIEW 01/26/2013 45156 MICRO ALBUMIN-IN HOUSE 01/26/2013 14527 A1C (IN-HOUSE) 01/26/2013 69012 US CAROTID DOPPLER 03/15/2013 70045 ROUTINE VENIPUNCTURE 04/04/2013 70633 CMP 04/04/2013 95829 LIPID PANEL 04/04/2013 02001 MAGNESIUM 04/04/2013 [id number] GFR CALC (RESULT ONLY) 04/04/2013 92800 TSH 04/04/2013 71757 CBC 04/04/2013 Results Test Result Range Complete [...] culture - 11/30/16 18:38 Bacterial urine culture [id number] NRG COLONY COUNT >100,000/ML NRG FTX;REPORTABLE SENSITIVITY [...] susceptibility test by minimum inhibitory concentration - [facility] Protime - 01/19/17 09:19 INR 1.1 1.0-4.0 [...] 5-8.5 Urine-Protein Negative Negative Urine-RBC 0-2/HPF Urine-Specific [place] 1.015 1.000-1.030 Urine-WBC 0-2/HPF Urobilinogen 1.0 0.2-1.0 TYPE/SCREEN - 11/20/17 06:25 ABO/RH A POSITIVE ANTIBODY SCREEN NEGATIVE Urine Culture - 11/20/17 07:00 FINAL CULTURE RESULTS >100,000 [id number] Skin Contaminant [id number] Further Workup done MEDIA PLATED Setup at 07:02 on 11/20/2017 CULTURE SOURCE cath urine Bacterial urine culture - 12/15/17 11:00 Bacterial urine culture SEE COMMEN NRG COLONY COUNT . NRG Methicillin resistant Staphylococcus aureus (MRSA) screening culture - 14:29 Methicillin resistant Staphylococcus aureus (MRSA) screening culture NEG NRG Complete blood count (CBC) with automated white blood cell (WBC) differential - 12/16/17 03:15 Blood leukocytes automated count (number/volume) 4.6 10*3/uL 4.3-11.0 Blood erythrocytes automated count (number/volume) 2.44 10*6/uL 4.35-5.85 Venous blood hemoglobin measurement (mass/volume) 8.5 g/dL 11.5-16.0 Blood hematocrit (volume fraction) 25 % 35-52 Automated erythrocyte mean corpuscular volume 103 [foz_us] 80-99 Automated erythrocyte mean corpuscular hemoglobin (mass per erythrocyte) 35 pg 25-34 Automated erythrocyte mean corpuscular hemoglobin concentration measurement ( mass/volume) 34 g/dL 32-36 Automated erythrocyte distribution width ratio 18.8 % 10.0-14.5 Automated blood platelet count (count/volume) 79 10*3/uL 130-400 Automated blood platelet mean volume measurement 9.8 [foz_us] 7.4-10.4 Automated blood neutrophils/100 leukocytes 67 % 42-75 Automated blood lymphocytes/100 leukocytes 15 % 12-44 Blood monocytes/100 leukocytes 16 % 0-12 Automated blood eosinophils/100 leukocytes 2 % 0-10 Automated blood basophils/100 leukocytes 0 % 0-10 Blood neutrophils automated count (number/volume) 3.1 10*3 1.8-7.8 Blood lymphocytes automated count (number/volume) 0.7 10*3 1.0-4.0 Blood monocytes automated count (number/volume) 0.8 10*3 0.0-1.0 Automated eosinophil count 0.1 10*3/uL 0.0-0.3 Automated blood basophil count (count/volume) 0.0 10*3/uL 0.0-0.1 PT panel in platelet poor plasma by coagulation assay - 12/16/17 03:15 Prothrombin time (PT) in platelet poor plasma by coagulation assay 29.2 s 12.2-14.7 INR in platelet poor plasma or blood by coagulation assay 2.7 0.8-1.4 Comprehensive metabolic panel - 12/16/17 03:15 Serum or plasma sodium measurement (moles/volume) 138 mmol/L 135-145 Serum or plasma potassium measurement (moles/volume) 3.1 mmol/L 3.6-5.0 Serum or plasma chloride measurement (moles/volume) 100 mmol/L 98-107 Carbon dioxide 27 mmol/L 21-32 Serum or plasma anion gap determination (moles/volume) 11 mmol/L 5-14 Serum or plasma urea nitrogen measurement (mass/volume) 29 mg/dL 7-18 Serum or plasma creatinine measurement (mass/volume) 1.66 mg/dL 0.60-1.30 Serum or plasma urea nitrogen/creatinine mass ratio 17 NRG Serum or plasma creatinine measurement with calculation of estimated glomerular filtration rate 30 NRG Serum or plasma glucose measurement (mass/volume) 95 mg/dL 70-105 Serum or plasma calcium measurement (mass/volume) 8.6 mg/dL 8.5-10.1 Serum or plasma total bilirubin measurement (mass/volume) 2.1 mg/dL 0.1-1.0 Serum or plasma alkaline phosphatase measurement (enzymatic activity/volume) 271 U/L 40-136 Serum or plasma aspartate aminotransferase measurement (enzymatic activity/ volume) 35 U/L 5-34 Serum or plasma alanine aminotransferase measurement (enzymatic activity/volume ) 19 U/L 0-55 Serum or plasma protein measurement (mass/volume) 5.6 g/dL 6.4-8.2 Serum or plasma albumin measurement (mass/volume) 2.1 g/dL 3.2-4.5 CALCIUM CORRECTED 10.1 mg/dL 8.5-10.1 Serum or plasma phosphate measurement (mass/volume) - 12/16/17 03:15 Serum or plasma phosphate measurement (mass/volume) 2.9 mg/dL 2.3-4.7 Magnesium - 12/16/17 03:15 Magnesium 1.9 mg/dL 1.8-2.4 Ammonia - 12/16/17 03:15 Ammonia 86 umol/L 11-32 Whole blood hemoglobin and hematocrit panel - 12/16/17 11:34 Venous blood hemoglobin measurement (mass/volume) 8.3 g/dL 11.5-16.0 Blood hematocrit (volume fraction) 25 % 35-52 Complete blood count (CBC) with automated white blood cell (WBC) differential - 12/17/17 05:10 Blood leukocytes automated count (number/volume) 5.2 10*3/uL 4.3-11.0 Blood erythrocytes automated count (number/volume) 2.29 10*6/uL 4.35-5.85 Venous blood hemoglobin measurement (mass/volume) 7.8 g/dL 11.5-16.0 Blood hematocrit (volume fraction) 24 % 35-52 Automated erythrocyte mean corpuscular volume 104 [foz_us] 80-99 Automated erythrocyte mean corpuscular hemoglobin (mass per erythrocyte) 34 pg 25-34 Automated erythrocyte mean corpuscular hemoglobin concentration measurement ( mass/volume) 33 g/dL 32-36 Automated erythrocyte distribution width ratio 19.3 % 10.0-14.5 Automated blood platelet count (count/volume) 85 10*3/uL 130-400 Automated blood platelet mean volume measurement 9.8 [foz_us] 7.4-10.4 Automated blood neutrophils/100 leukocytes 71 % 42-75 Automated blood lymphocytes/100 leukocytes 14 % 12-44 Blood monocytes/100 leukocytes 14 % 0-12 Automated blood eosinophils/100 leukocytes 2 % 0-10 Automated blood basophils/100 leukocytes 0 % 0-10 Blood neutrophils automated count (number/volume) 3.7 10*3 1.8-7.8 Blood lymphocytes automated count (number/volume) 0.7 10*3 1.0-4.0 Blood monocytes automated count (number/volume) 0.7 10*3 0.0-1.0 Automated eosinophil count 0.1 10*3/uL 0.0-0.3 Automated blood basophil count (count/volume) 0.0 10*3/uL 0.0-0.1 Blood blood smear finding identification by light microscopy YES NRG PT panel in platelet poor plasma by coagulation assay - 12/17/17 05:10 Prothrombin time (PT) in platelet poor plasma by coagulation assay 19.3 s 12.2-14.7 INR in platelet poor plasma or blood by coagulation assay 1.6 0.8-1.4 Comprehensive metabolic panel - 12/17/17 05:10 Serum or plasma sodium measurement (moles/volume) 139 mmol/L 135-145 Serum or plasma potassium measurement (moles/volume) 3.5 mmol/L 3.6-5.0 Serum or plasma chloride measurement (moles/volume) 106 mmol/L 98-107 Carbon dioxide 22 mmol/L 21-32 Serum or plasma anion gap determination (moles/volume) 11 mmol/L 5-14 Serum or plasma urea nitrogen measurement (mass/volume) 32 mg/dL 7-18 Serum or plasma creatinine measurement (mass/volume) 1.57 mg/dL 0.60-1.30 Serum or plasma urea nitrogen/creatinine mass ratio 20 NRG Serum or plasma creatinine measurement with calculation of estimated glomerular filtration rate 32 NRG Serum or plasma glucose measurement (mass/volume) 88 mg/dL 70-105 Serum or plasma calcium measurement (mass/volume) 7.9 mg/dL 8.5-10.1 Serum or plasma total bilirubin measurement (mass/volume) 2.2 mg/dL 0.1-1.0 Serum or plasma alkaline phosphatase measurement (enzymatic activity/volume) 240 U/L 40-136 Serum or plasma aspartate aminotransferase measurement (enzymatic activity/ volume) 35 U/L 5-34 Serum or plasma alanine aminotransferase measurement (enzymatic activity/volume ) 18 U/L 0-55 Serum or plasma protein measurement (mass/volume) 5.5 g/dL 6.4-8.2 Serum or plasma albumin measurement (mass/volume) 2.0 g/dL 3.2-4.5 CALCIUM CORRECTED 9.5 mg/dL 8.5-10.1 Ammonia - 12/17/17 05:10 Ammonia 72 umol/L 11-32 Complete blood count (CBC) with automated white blood cell (WBC) differential - 12/18/17 06:20 Blood leukocytes automated count (number/volume) 5.5 10*3/uL 4.3-11.0 Blood erythrocytes automated count (number/volume) 2.46 10*6/uL 4.35-5.85 Venous blood hemoglobin measurement (mass/volume) 8.6 g/dL 11.5-16.0 Blood hematocrit (volume fraction) 26 % 35-52 Automated erythrocyte mean corpuscular volume 105 [foz_us] 80-99 Automated erythrocyte mean corpuscular hemoglobin (mass per erythrocyte) 35 pg 25-34 Automated erythrocyte mean corpuscular hemoglobin concentration measurement ( mass/volume) 34 g/dL 32-36 Automated erythrocyte distribution width ratio 18.9 % 10.0-14.5 Automated blood platelet count (count/volume) 73 10*3/uL 130-400 Automated blood platelet mean volume measurement 10.3 [foz_us] 7.4-10.4 Automated blood neutrophils/100 leukocytes 72 % 42-75 Automated blood lymphocytes/100 leukocytes 14 % 12-44 Blood monocytes/100 leukocytes 12 % 0-12 Automated blood eosinophils/100 leukocytes 1 % 0-10 Automated blood basophils/100 leukocytes 0 % 0-10 Blood neutrophils automated count (number/volume) 4.0 10*3 1.8-7.8 Blood lymphocytes automated count (number/volume) 0.8 10*3 1.0-4.0 Blood monocytes automated count (number/volume) 0.7 10*3 0.0-1.0 Automated eosinophil count 0.1 10*3/uL 0.0-0.3 Automated blood basophil count (count/volume) 0.0 10*3/uL 0.0-0.1 PT panel in platelet poor plasma by coagulation assay - 12/18/17 06:20 Prothrombin time (PT) in platelet poor plasma by coagulation assay 16.8 s 12.2-14.7 INR in platelet poor plasma or blood by coagulation assay 1.4 0.8-1.4 Comprehensive metabolic panel - 12/18/17 06:20 Serum or plasma sodium measurement (moles/volume) 142 mmol/L 135-145 Serum or plasma potassium measurement (moles/volume) 3.1 mmol/L 3.6-5.0 Serum or plasma chloride measurement (moles/volume) 110 mmol/L 98-107 Carbon dioxide 19 mmol/L 21-32 Serum or plasma anion gap determination (moles/volume) 13 mmol/L 5-14 Serum or plasma urea nitrogen measurement (mass/volume) 32 mg/dL 7-18 Serum or plasma creatinine measurement (mass/volume) 1.58 mg/dL 0.60-1.30 Serum or plasma urea nitrogen/creatinine mass ratio 20 NRG Serum or plasma creatinine measurement with calculation of estimated glomerular filtration rate 32 NRG Serum or plasma glucose measurement (mass/volume) 135 mg/dL 70-105 Serum or plasma calcium measurement (mass/volume) 7.8 mg/dL 8.5-10.1 Serum or plasma total bilirubin measurement (mass/volume) 2.1 mg/dL 0.1-1.0 Serum or plasma alkaline phosphatase measurement (enzymatic activity/volume) 249 U/L 40-136 Serum or plasma aspartate aminotransferase measurement (enzymatic activity/ volume) 31 U/L 5-34 Serum or plasma alanine aminotransferase measurement (enzymatic activity/volume ) 20 U/L 0-55 Serum or plasma protein measurement (mass/volume) 5.5 g/dL 6.4-8.2 Serum or plasma albumin measurement (mass/volume) 2.1 g/dL 3.2-4.5 CALCIUM CORRECTED 9.3 mg/dL 8.5-10.1 Ammonia - 12/18/17 06:20 Ammonia 62 umol/L 11-32 Encounters ACCT No. Visit Date/Time Discharge Status Pt. Type Provider Facility Loc./Unit Complaint [id number] 04/04/2013 08:24:00 04/04/2013 23:59:59 [facility] Outpatient TABBY WOODS APRN [id number] 03/15/2013 15:25:00 03/15/2013 23:59:59 [facility] Outpatient TABBY WOODS APRN [id number] 01/26/2013 15:57:00 01/26/2013 23:59:59 CLS Outpatient TABBY WOODS APRN [id number] 07/04/2012 08:16:00 07/04/2012 23:59:59 CLS Outpatient TABBY WOODS APRN S [id number] 11/20/2017 04:25:00 11/20/2017 08:25:00 DIS Outpatient Julita Madrid [facility] ER [id number] 01/19/2017 08:35:00 01/19/2017 10:50:00 DIS Outpatient [facility] ER [id number] 09/27/2016 22:39:00 09/28/2016 01:15:00 [id number] 12/24/2017 11:45:02 Document Registration [id number] 09/28/2016 00:41:45 Document Registration [id number] 07/26/2017 00:41:00 07/26/2017 23:59:59 CLS Preadmit DERRELL MONROY [facility] ONC [id number] 05/27/2017 14:22:00 07/25/2017 00:01:00 DIS Outpatient DERRELL MONROY [facility] ONC [id number] 01/06/2017 07:54:00 01/06/2017 23:59:59 CLS Outpatient DALLAS RUBIO MD [facility] CARD I25.10 [id number] 11/30/2016 17:09:00 11/30/2016 20:02:00 DIS Outpatient KALPANA JEAN MD [facility] ER DISORIENTATION,SWEATY [id number] 01/31/2015 13:51:00 01/31/2015 23:59:59 CLS Outpatient DALLAS RUBIO MD [facility] CARD CAD, CP, HTN, HLD [id number] 04/26/2014 14:39:00 04/26/2014 16:23:00 DIS Emergency CATA TAYLOR MD [facility] ER ABD PAIN/SWELLING [id number] 03/29/2014 13:24:00 03/29/2014 23:59:59 CLS Outpatient SAMINA TREVINO MD [facility] RAD ABD PAIN [id number] 03/29/2014 11:12:00 03/29/2014 23:59:59 CLS Outpatient SAMINA TREVINO MD [facility] RAD ABNORMAL MAMMO [id number] 02/22/2014 08:56:00 02/22/2014 23:59:59 CLS Outpatient SAMINA TREVINO MD [facility] RAD INCREASED BILIRUBIN, ABN LIVER FUNCTION [id number] 09/22/2013 08:52:00 09/22/2013 23:59:59 CLS Outpatient AMINATA PETERSON MD [facility] SDC ABDOMINAL PAIN [id number] 09/20/2013 07:14:00 09/20/2013 23:59:59 CLS Outpatient KRISTEN DAHL, AMINATA [facility] PREOP ABDOMINAL PAIN [id number] 09/06/2013 21:05:00 09/07/2013 13:15:00 DIS Inpatient BELINDA DAHL, SAMINA [facility] 4TH ACUTE COLITIS, ABD PAIN, UTI, LEUKOPENIA [id number] 03/22/2013 13:01:00 03/22/2013 23:59:59 CLS Outpatient TABBY WOODS [facility] RAD MEMORY LOSS [id number] 01/26/2013 17:07:00 01/26/2013 23:59:59 CLS Outpatient TABBY WOODS [facility] RAD CHEST WALL PAIN [id number] 11/22/2012 10:06:00 11/28/2012 00:01:00 DIS Outpatient BAKARI FOX MD [facility] ONC [id number] 12/16/2017 13:55:00 Document Registration [id number] 06/08/2013 00:00:00 Document Registration [id number] 05/25/2012 09:00:00 Document Registration [id number] 05/24/2012 10:44:00 Document Registration [id number] 05/23/2012 08:50:00 Document Registration [id number] 05/17/2012 14:58:00 Document Registration [id number] 05/12/2012 08:14:00 Document Registration [id number] 04/25/2012 10:55:00 Document Registration [id number] 03/16/2012 11:08:00 Document Registration [id number] 04/01/2011 05:31:00 Document Registration [id number] 03/31/2011 08:31:00 Document Registration
[2017-12-26] MEDS ORDERED: NS IV 1000 ML 1,000 ML IV SCH (16:05)
--- NOTE | 2017-12-26 16:08 | ED General ---
General Stated Complaint: LETHARGIC Source of Information: Patient, EMS, Family, Spouse Exam Limitations: Other (clinical condition) History of Present Illness Date Seen by Provider: Dec 26, 2017 Time Seen by Provider: 15:54 Initial Comments Patient presents to ER by EMS with chief complaint she was coming from home where she lives with family after being discharged from via [facility] rehabilitation from a hip fracture and this morning she woke up about 4:30 and her said that he fed her some and she was doing all right but feels that under and slow and then when she went to sleep later this morning they woke up and were unable to get her to arouse. She just got out of the hospital about a week or 2 ago for hepatic encephalopathy and she has a history of nonalcoholic steatohepatitis with cirrhosis and end-stage liver disease. She's been taking the lactulose twice a day as prescribed she's been taking all of her medicines this burn lactone and Lasix etc. as prescribed except for this morning because they couldn't get her to wake up. Allergies and Home Medications Allergies Coded Allergies: hydroxyzine (Unverified Adverse Reaction, Intermediate, ALTERED MENTAL STATUS, 09/06/13) Penicillins (Unverified Adverse Reaction, Unknown, 09/06/13) Home Medications Calcium Carbonate 600 Mg Tablet, 600 MG PO HS, (Reported) Escitalopram Oxalate 20 Mg Tablet, 20 MG PO DAILY, (Reported) Fludrocortisone Acetate 0.1 Mg Tab, 0.1 MG PO DAILY, (Reported) Furosemide 40 Mg Tablet, 40 MG PO DAILY Prescribed by: FELICITA GAYTAN on 12/22/17741 Lactulose 20 Gm/30 Ml Solution, 10 GM PO BID Prescribed by: FELICITA GAYTAN on 12/22/17741 Levothyroxine Sodium 50 Mcg Tablet, 50 MCG PO DAILY, (Reported) Nystatin 100,000 Unit/1 Ml Oral.susp, 5 ML PO Q6HR Prescribed by: FELICITA GAYTAN on 12/22/17741 Oxycodone HCl 5 Mg Capsule, 5 MG PO Q6H Prescribed by: FELICITA GAYTAN on 12/22/17 0929 Spironolactone 100 Mg Tablet, 100 MG PO DAILY, (Reported) Patient Home Medication List Home Medication List Reviewed: Yes Review of Systems Review of Systems Constitutional: see HPI (review of systems per ); No chills, No diaphoresis EENTM: No hearing loss, No ear pain Respiratory: No cough, No short of breath Cardiovascular: No chest pain, No palpitations Gastrointestinal: No nausea, No vomiting Genitourinary: No discharge, No dysuria Musculoskeletal: No back pain, No gout, No joint pain Past Jokitfe-Xcnwny-Bivusb Hx Patient Social History Alcohol Use: Denies Use Recreational Drug Use: No Smoking Status: Never a Smoker 2nd Hand Smoke Exposure: Yes Recent Foreign Travel: No Contact w/Someone Who Travel: No Recent Hopitalizations: Yes (pt had hip surgery November 19, 2017) Past Medical History Surgeries: Yes (VENTRAL HERNIA REPAIR, GANGLION ON HANDS, hip) Gallbladder, Orthopedic Respiratory: No Cardiac: Yes (SMALL ANEURYSM) High Cholesterol, Irregular Heartbeat Neurological: No Reproductive Disorders: No Genitourinary: No Gastrointestinal: Yes (nonalcoholic steatohepatitis) Liver Disease/Jaundice, Diverticulosis, Cirrhosis Musculoskeletal: Yes Arthritis Endocrine: Yes Hypothyroidsim, Diabetes, Non-Insulin dep Cancer: No Psychosocial: Yes Anxiety Integumentary: Yes Eczema Blood Disorders: No Adverse Reaction/Blood Tranf: No Family Medical History Cancer 19 MOTHER (LUNG CANCER) G8 SISTER (NON HODGKINS LYMPHOMA) Congenital heart disease 19 MOTHER Family history: Arthritis 19 FATHER 19 MOTHER G8 BROTHER G8 SISTER G8 SISTER G8 SISTER G8 SISTER G8 SISTER Family history: Cardiovascular disease 19 MOTHER Family history: Hypertension 19 MOTHER Heart disease 19 MOTHER Myocardial infarction G8 SISTER Stroke 19 FATHER 19 MOTHER Tuberculosis G8 SISTER No Family History of: Abdominal aortic aneurysm Isaruo's disease Alcoholism Aphasia Cancer of colon Cataract Chest pain Congestive heart failure Cystic fibrosis Dementia Dysphagia Family history: Allergy Family history: Alzheimer's disease Family history: Asthma Family history: Breast disease Family history: Coronary thrombosis Family history: Diabetes mellitus Family history: Gastrointestinal disease Family history: Glaucoma Family history: Osteoporosis Family history: Thyroid disorder Headache Hearing loss Hereditary disease History of - anemia History of - disorder History of - respiratory disease History of drug abuse Human immunodeficiency virus (HIV) seropositivity Hypercholesterolemia Infertile Kidney disease Malignant neoplasm of lung Parkinson's disease Prostate cancer Psychotic disorder Seizure disorder Visual impairment Physical Exam-Suspected Sepsis Physical Exam Vital Signs Vital Signs - First Documented 12/26/17 15:55 Temp 98.0 Pulse 84 Resp 20 B/P (MAP) 105/60 (75) Pulse Ox 99 O2 Delivery Nasal Cannula O2 Flow Rate 2.00 Capillary Refill : Height, Weight, BMI Height: 5'4.00" Weight: 145lbs. 2.0oz. 65.359328qu; 23.9 BMI Method:Stated General Appearance: Thin, Other (obtunded) Eyes: Bilateral Eye Normal Inspection, Bilateral Eye PERRL, Bilateral Eye EOMI HEENT: PERRL/EOMI, TMs Normal, Normal ENT Inspection; No Moist Mucous Membranes (oropharynx is mildly dry) Neck: Full Range of Motion, Normal Inspection Respiratory: Chest Non Tender, Lungs Clear, Normal Breath Sounds, No Accessory Muscle Use, No Respiratory Distress Cardiovascular: Regular Rate, Rhythm, No Edema, Normal Peripheral Pulses Gastrointestinal: Normal Bowel Sounds, Non Tender, Soft Extremity: Normal Capillary Refill, Non Tender, No Calf Tenderness, No Pedal Edema Neurologic/Psychiatric: Alert, Oriented x3 Skin: normal color, warm/dry Focused Exam Lactate Level 12/26/17 15:55: Lactic Acid Level 1.96 Lactic Acid Level Laboratory Tests Test 12/26/17 15:55 Lactic Acid Level 1.96 MMOL/L (0.50-2.00) Progress/Results/Core Measures Suspected Sepsis SIRS Temperature: Pulse: Respiratory Rate: Laboratory Tests 12/26/17 15:55: White Blood Count 5.1 Blood Pressure / Mean: 12/26/17 15:55: Lactic Acid Level 1.96 Laboratory Tests 12/26/17 15:55: Creatinine 1.40H, Platelet Count 88L, Total Bilirubin 2.6H 12/26/17 16:23: INR Comment 1.2 Results/Orders Lab Results Laboratory Tests Test 12/26/17 15:55 12/26/17 16:20 12/26/17 16:23 Range/Units White Blood Count 5.1 4.3-11.0 10^3/uL Red Blood Count 2.63 L 4.35-5.85 10^6/uL Hemoglobin 9.4 L 11.5-16.0 G/DL Hematocrit 28 L 35-52 % Mean Corpuscular Volume 106 H 80-99 FL Mean Corpuscular Hemoglobin 36 H 25-34 PG Mean Corpuscular Hemoglobin Concent 34 32-36 G/DL Red Cell Distribution Width 21.6 H 10.0-14.5 % Platelet Count 88 L 130-400 10^3/uL Mean Platelet Volume 9.8 7.4-10.4 FL Neutrophils (%) (Auto) 62 42-75 % Lymphocytes (%) (Auto) 21 12-44 % Monocytes (%) (Auto) 17 H 0-12 % Eosinophils (%) (Auto) 1 0-10 % Basophils (%) (Auto) 0 0-10 % Neutrophils # (Auto) 3.1 1.8-7.8 X 10^3 Lymphocytes # (Auto) 1.0 1.0-4.0 X 10^3 Monocytes # (Auto) 0.8 0.0-1.0 X 10^3 Eosinophils # (Auto) 0.0 0.0-0.3 10^3/uL Basophils # (Auto) 0.0 0.0-0.1 10^3/uL Sodium Level 133 L 135-145 MMOL/L Potassium Level 3.8 3.6-5.0 MMOL/L Chloride Level 104 98-107 MMOL/L Carbon Dioxide Level 18 L 21-32 MMOL/L Anion Gap 11 5-14 MMOL/L Blood Urea Nitrogen 31 H 7-18 MG/DL Creatinine 1.40 H 0.60-1.30 MG/DL Estimat Glomerular Filtration Rate 37 BUN/Creatinine Ratio 22 Glucose Level 130 H 70-105 MG/DL Lactic Acid Level 1.96 0.50-2.00 MMOL/L Calcium Level 8.1 L 8.5-10.1 MG/DL Corrected Calcium 9.9 8.5-10.1 MG/DL Total Bilirubin 2.6 H 0.1-1.0 MG/DL Aspartate Amino Transf (AST/SGOT) 52 H 5-34 U/L Alanine Aminotransferase (ALT/SGPT) 40 0-55 U/L Alkaline Phosphatase 255 H 40-136 U/L Ammonia 128 H 11-32 UMOL/L Troponin I < 0.30 <0.30 NG/ML Total Protein 5.2 L 6.4-8.2 GM/DL Albumin 1.8 L 3.2-4.5 GM/DL Urine Color YELLOW Urine Clarity VERY CLOUDY H Urine pH 5 5-9 Urine Specific [facility] 1.015 L 1.016-1.022 Urine Protein NEGATIVE NEGATIVE Urine Glucose (UA) NEGATIVE NEGATIVE Urine Ketones NEGATIVE NEGATIVE Urine Nitrite NEGATIVE NEGATIVE Urine Bilirubin NEGATIVE NEGATIVE Urine Urobilinogen NORMAL NORMAL MG/DL Urine Leukocyte Esterase 3+ H NEGATIVE Urine RBC (Auto) NEGATIVE NEGATIVE Urine RBC NONE /HPF Urine WBC 25-50 H /HPF Urine Squamous Epithelial Cells 10-25 H /HPF Urine Crystals NONE /LPF Urine Bacteria NEGATIVE /HPF Urine Casts PRESENT /LPF Urine Hyaline Casts 10-25 H /LPF Urine Mucus NEGATIVE /LPF Urine Yeast LARGE H /HPF Urine Culture Indicated NO Prothrombin Time 15.6 H 12.2-14.7 SEC INR Comment 1.2 0.8-1.4 Activated Partial Thromboplast Time 29 24-35 SEC My Orders Orders - KALPANA JEAN Cbc With Automated Diff (12/26/17 16:05) Comprehensive Metabolic Panel (12/26/17 16:05) Blood Culture (12/26/17 16:05) Sputum Culture (12/26/17 16:05) Urinalysis (12/26/17 16:05) Urine Culture (12/26/17 16:05) Protime With Inr (12/26/17 16:05) Partial Thromboplastin Time (12/26/17 16:05) Chest 1 View, Ap/Pa Only (12/26/17 16:05) Saline Lock/Iv-Start (12/26/17 16:05) Saline Lock/Iv-Start (12/26/17 16:05) Ekg Tracing (12/26/17 16:05) Troponin I (12/26/17 16:05) Vital Signs Adult Sepsis Patie Q15M (12/26/17 16:05) O2 (12/26/17 16:05) Remove Rings In Anticipation O (12/26/17 16:05) Lactic Acid Analyzer (12/26/17 16:05) Ns Iv 1000 Ml (Sodium Chloride 0.9%) (12/26/17 16:05) Cefepime Injection (Maxipime Injection) (12/26/17 16:15) Ct Head Wo (12/26/17 16:05) Ammonia (12/26/17 16:09) Catheter(Urinary) Insert & Ass 03,15 (12/26/17 16:12) Medications Given in ED Current Medications Medications Dose Ordered Sig/Jassi Route Start Time Stop Time Status Last Admin Dose Admin Cefepime HCl 1000 mg/Sodium Chloride 50 ml @ 100 mls/hr ONCE ONCE IV 12/26/17 16:15 12/26/17 16:44 DC 12/26/17 17:07 100 MLS/HR Vital Signs/I&O 12/26/17 12/26/17 12/26/17 15:55 15:55 17:50 Temp 98.0 Pulse 84 81 Resp 20 14 B/P (MAP) 105/60 (75) 105/60 (75) Pulse Ox 99 99 98 O2 Delivery Nasal Cannula Nasal Cannula Nasal Cannula O2 Flow Rate 2.00 2.00 2.00 Capillary Refill : Progress Note : Time: 16:52 Progress Note Patient presents afebrile, obtunded with a strong odor of urine. She is wearing incontinence briefs. For family got her initial thought was sepsis but then we got some history and found that she has a history of end-stage liver disease and was recently here in the hospital for hepatic encephalopathy. Her white count is not elevated and her lactate is normal as well as her ammonia is elevated. Last week he was in the 50s this week it is over 100. She also had a normal blood sugar in the 150s according to EMS. We had some candid conversation about goals of care with the and will continue the conversation after we have had a chance to review the x-rays and labs in completion. ECG Initial ECG Impression Date: Dec 26, 2017 Initial ECG Impression Time: 16:06 Initial ECG Rate: 86 Initial ECG Rhythm: Normal Sinus Initial ECG Intervals: QT (498) Initial ECG Impression: Nonspecific Changes Comment No ST elevation or depression. Diagnostic Imaging Diagonstic Imaging: Xray Plain Films/CT/US/NM/MRI: chest Comments Stable chest x-ray with elevated right hemidiaphragm. No acute cardiopulmonary processes noted. VIA [email or web address] [place], [place] NAME: TATE MARMOLEJO [facility] REC#: [id number] PT STATUS: REG ER : 1940 PHYSICIAN: KALPANA JEAN MD ADMIT DATE: 12/26/17/ER Draft Date of Exam:12/26/17 CHEST 1 VIEW, AP/PA ONLY INDICATION: Lethargy. Altered mental state. COMPARISON: 12/15/2017. EXAMINATION: Single view of the chest was obtained. FINDINGS: Chronic elevation of the right hemidiaphragm with right basilar atelectasis is again noted. Left lung is well-aerated and clear. Heart is not enlarged. There is no evidence of pulmonary edema. No pneumothorax or pleural effusion. IMPRESSION: Chronic right basilar atelectasis and elevation of the right hemidiaphragm. Dictated on workstation # [id number] Dict: 12/26/171656 Trans: 12/26/171699 [facility] [id number] Interpreted by: JOE FONTAINE MD Electronically signed by: Reviewed: Reviewed by Me Diagonstic Imaging: CT Plain Films/CT/US/NM/MRI: head Comments No intracranial hemorrhage, fracture, mass effect, midline shift, tumor. Significant calcification of the arteries noted. NAME: TATE MARMOLEJO [facility] REC#: [id number] PHYSICIAN: KALPANA JEAN MD CC: JOE FONTAINE MD; KALPANA JEAN Page 1 of 1 RADIOLOGY REPORT VIA [place], [place] CC: JOE FONTAINE MD; KALPANA JEAN Page 1 of 1 RADIOLOGY REPORT NAME: TATE MARMOLEJO [employer] [facility] REC#: [id number] PT STATUS: REG ER : 1940 PHYSICIAN: KALPANA JEAN MD ADMIT DATE: 12/26/17/ER Signed Date of Exam: 12/26/17 CT HEAD WO PROCEDURE: CT head without contrast. TECHNIQUE: Multiple contiguous axial images were obtained through the brain without the use of intravenous contrast. INDICATION: Altered mental status. Lethargy. Confusion. COMPARISON: 12/15/2017. FINDINGS: There is cortical atrophy. Periventricular white matter changes are again noted, diffuse in nature. The ventricles are not dilated. There is no intracranial hemorrhage. No mass effect. No extra-axial fluid collection. Basal cisterns are clear. Mastoid air cells remain well-aerated and clear. No calvarial fracture. IMPRESSION: Cortical atrophy with white matter changes consistent with chronic small vessel disease. There has been no significant change when compared with previous exam. Dictated by: Dictated on workstation # [id number] Dict: 12/26/171655 Trans: 12/26/171699 Interpreted by: JOE FONTAINE MD Electronically signed by: JOE FONTAINE MD 12/26/171699 Reviewed: Reviewed by Me Departure Communication (Admissions) Time/Spoke to Admitting Phy: 17:35 Discussed the case lab imaging findings with Dr. Gaytan and the patient's family' s wish to go comfort care only. She is okay to observe the patient and contact hospice. Impression Primary Impression: Hepatic coma/encephalopathy Additional Impression: Need for comfort care Disposition: ADMITTED INPATIENT Condition: Stable Admissions Decision to Admit Reason: Admit from ER (General) Decision to Admit/Date: Dec 26, 2017 Time/Decision to Admit Time: 17:47 Departure-Patient Inst. Referrals: SAMINA TREVION MD (PCP/Family) Primary Care Physician Copy Copies To 1: SAMINA TREVINO MD, TITUS J Dec 26, 2017 16:08
[2017-12-26 16:14] LABS: BASOPHILS % (AUTO) 0 % (0-10); EOSINOPHILS % (AUTO) 1 % (0-10); HEMATOCRIT 28 % (35-52); HEMOGLOBIN 9.4 G/DL (11.5-16.0); LYMPHOCYTES % (AUTO) 21 % (12-44); MEAN CORPUSCULAR HEMOGLOBIN 36 PG (25-34); MEAN CORPUSCULAR HGB CONC 34 G/DL (32-36); MEAN CORPUSCULAR VOLUME 106 FL (80-99); MEAN PLATELET VOLUME 9.8 FL (7.4-10.4); MONOCYTES # (AUTO) 0.8 X 10^3 (0.0-1.0); MONOCYTES % (AUTO) 17 % (0-12); NEUTROPHILS # (AUTO) 3.1 X 10^3 (1.8-7.8); NEUTROPHILS % (AUTO) 62 % (42-75); PLATELET COUNT 88 10^3/uL (130-400); RED BLOOD COUNT 2.63 10^6/uL (4.35-5.85); RED CELL DISTRIBUTION WIDTH 21.6 % (10.0-14.5); WHITE BLOOD COUNT 5.1 10^3/uL (4.3-11.0)
[2017-12-26] MEDS ORDERED: CEFEPIME INJECTION 1,000 MG in NS (IVPB) 50 ML IV ONE (16:15)
[2017-12-26 16:26] LABS: BILIRUBIN,URINE NEGATIVE (NEGATIVE); CLARITY,URINE VERY CLOUDY; COLOR,URINE YELLOW; GLUCOSE, URINE (UA) NEGATIVE (NEGATIVE); KETONES,URINE NEGATIVE (NEGATIVE); LEUKOCYTE ESTERASE ,URINE 3+ (NEGATIVE); NITRITE,URINE NEGATIVE (NEGATIVE); PH,URINE 5 (5-9); PROTEIN,URINE NEGATIVE (NEGATIVE); UROBILINOGEN,URINE NORMAL (NORMAL)
[2017-12-26 16:32] LABS: ALANINE AMINOTRANSFERASE 40 U/L (0-55); ALBUMIN 1.8 GM/DL (3.2-4.5); ALKALINE PHOSPHATASE 255 U/L (40-136); AMMONIA 128 UMOL/L (11-32); BILIRUBIN,TOTAL 2.6 MG/DL (0.1-1.0); BUN/CREATININE RATIO 22; CALCIUM 8.1 MG/DL (8.5-10.1); CARBON DIOXIDE 18 MMOL/L (21-32); CHLORIDE 104 MMOL/L (98-107); GFR ESTIMATED 37; GLUCOSE 130 MG/DL (70-105); POTASSIUM 3.8 MMOL/L (3.6-5.0); SODIUM 133 MMOL/L (135-145); TOTAL PROTEIN 5.2 GM/DL (6.4-8.2)
[2017-12-26 16:34] LABS: BACTERIA,URINE NEGATIVE /HPF; WBC,URINE 25-50 /HPF; YEAST,URINE LARGE /HPF
[2017-12-26 16:41] LABS: INR 1.2 (0.8-1.4); PROTHROMBIN TIME PATIENT 15.6 SEC (12.2-14.7)
--- NOTE | 2017-12-26 17:00 | Diagnostic Imaging Report ---
PROCEDURE: CT head without contrast. TECHNIQUE: Multiple contiguous axial images were obtained through the brain without the use of intravenous contrast. INDICATION: Altered mental status. Lethargy. Confusion. COMPARISON: 12/15/2017. FINDINGS: There is cortical atrophy. Periventricular white matter changes are again noted, diffuse in nature. The ventricles are not dilated. There is no intracranial hemorrhage. No mass effect. No extra-axial fluid collection. Basal cisterns are clear. Mastoid air cells remain well-aerated and clear. No calvarial fracture. IMPRESSION: Cortical atrophy with white matter changes consistent with chronic small vessel disease. There has been no significant change when compared with previous exam. Dictated by: Dictated on workstation # [id number]
--- NOTE | 2017-12-26 17:01 | Diagnostic Imaging Report ---
INDICATION: Lethargy. Altered mental state. COMPARISON: 12/15/2017. EXAMINATION: Single view of the chest was obtained. FINDINGS: Chronic elevation of the right hemidiaphragm with right basilar atelectasis is again noted. Left lung is well-aerated and clear. Heart is not enlarged. There is no evidence of pulmonary edema. No pneumothorax or pleural effusion. IMPRESSION: Chronic right basilar atelectasis and elevation of the right hemidiaphragm. Dictated by: Dictated on workstation # [id number]
[2017-12-26 17:50] VITALS: BP 105/60
--- NOTE | 2017-12-26 18:22 | History & Physical-Hospitalist ---
History of Present Illness HPI/Chief Complaint Pt is 77yoCf known to me from recent admission who presented to the ER with CC of altered mental status. All history is obtained through family as she is unable to provide any history. She has ESLD from [facility]. She was recently discharged from here to home as family wanted to give her 100% chance at recovery. Unfortunately at home she continued to worsen and this morning she was found to be very confused and nearly unresponsive. They checked her blood sugar which was 160 and her vitals and the only abnormality was she was mildly hypotensive (~95/65). On arrival she was found to still be unresponsive and her ammonia level was 128. At this time her family has elected to pursue comfort measures only. Source: patient Exam Limitations: clinical condition Date Seen 12/26/17 Time Seen by Provider: 18:22 Attending Physician Felicita Gaytan MD PCP Josse Watson MD Referring Physician Felicita Gaytan MD Date of Admission Home Medications & Allergies Home Medications Reviewed patient Home Medication Reconciliation performed by pharmacy medication reconciliations cartography technician and/or nursing. Patients Allergies have been reviewed. Allergies Allergies Coded Allergies hydroxyzine (Unverified Adverse Reaction, Intermediate, ALTERED MENTAL STATUS , 09/06/13) Penicillins (Unverified Adverse Reaction, Unknown, 09/06/13) Past Pkumxhv-Ucghof-Xzvloz Hx Past Med/Social Hx: Reviewed Nursing Past Med/Soc Hx Patient Social History Marrital Status: Alcohol Use: Denies Use Recreational Drug Use: No Smoking Status: Never a Smoker 2nd Hand Smoke Exposure: Yes Recent Foreign Travel: No Contact w/other who traveled: No Recent Hopitalizations: Yes (pt had hip surgery November 19, 2017, 1 week ago - high ammonia) Recent Infectious Disease Expo: No Past Medical History Surgeries: Gallbladder, Orthopedic Cardiac: Heart Murmur, High Cholesterol, Irregular Heartbeat Reproductive: No Gastrointestinal: Liver Disease/Jaundice, Diverticulosis, Cirrhosis Musculoskeletal: Arthritis Endocrine: Hypothyroidsim, Diabetes, Non-Insulin dep Psychosocial: Anxiety Skin/Integumentary: Eczema History of Blood Disorders: No Adverse Reaction to Blood Melo: No Family History Reviewed Nursing Family Hx Cancer 19 MOTHER (LUNG CANCER) G8 SISTER (NON HODGKINS LYMPHOMA) Congenital heart disease 19 MOTHER Family history: Arthritis 19 FATHER 19 MOTHER G8 BROTHER G8 SISTER G8 SISTER G8 SISTER G8 SISTER G8 SISTER Family history: Cardiovascular disease 19 MOTHER Family history: Hypertension 19 MOTHER Heart disease 19 MOTHER Myocardial infarction G8 SISTER Stroke 19 FATHER 19 MOTHER Tuberculosis G8 SISTER No Family History of: Abdominal aortic aneurysm [place]'s disease Alcoholism Aphasia Cancer of colon Cataract Chest pain Congestive heart failure Cystic fibrosis Dementia Dysphagia Family history: Allergy Family history: Alzheimer's disease Family history: Asthma Family history: Breast disease Family history: Coronary thrombosis Family history: Diabetes mellitus Family history: Gastrointestinal disease Family history: Glaucoma Family history: Osteoporosis Family history: Thyroid disorder Headache Hearing loss Hereditary disease History of - anemia History of - disorder History of - respiratory disease History of drug abuse Human immunodeficiency virus (HIV) seropositivity Hypercholesterolemia Infertile Kidney disease Malignant neoplasm of lung Parkinson's disease Prostate cancer Psychotic disorder Seizure disorder Visual impairment Heart Disease, Cancer, Stroke Review of Systems ROS-Unable to Obtain: AMS Constitutional: see HPI Physical Exam Physical Exam Vital Signs Vital Signs - First Documented 12/26/17 15:55 Temp 98.0 Pulse 84 Resp 20 B/P (MAP) 105/60 (75) Pulse Ox 99 O2 Delivery Nasal Cannula O2 Flow Rate 2.00 Capillary Refill : Less Than 3 Seconds Height, Weight, BMI Height: 5'4.00" Weight: 130lbs. 2.0oz. 58.062682vs; 23.9 BMI Method:Stated General Appearance: Chronically ill, Mild Distress HEENT: Moist Mucous Membranes; No Scleral Icterus (L), No Scleral Icterus (R) Respiratory: Lungs Clear, No Accessory Muscle Use, No Respiratory Distress Cardiovascular: Regular Rate, Rhythm, No Murmur Gastrointestinal: Normal Bowel Sounds, Non Tender, Distended Extremity: No Calf Tenderness, Pedal Edema Neurologic/Psychiatric: Disoriented, Other (unresponsive to physical or verbal stimuli) Results Results/Procedures Labs Laboratory Tests 12/26/17 15:55 Patient resulted labs reviewed. Assessment/Plan Admission Diagnosis Hepatic Encephalopathy Admission Status: Observation Diagnosis/Problems Diagnosis/Problems (1) Hepatic coma/encephalopathy Status: Acute Assessment & Plan: Mentation far worse than on discharge despite treatment with lactulose Worsening ESLD Family electing comfort measures only (2) Need for comfort care Status: Acute Assessment & Plan: Discussed with family who would like to enroll in hospice They are unfamiliar with any hospice agencies Consult palliative care and hospice for AM Comfort care order set in place (3) End stage liver disease Status: Acute Assessment & Plan: Terminal disease Comfort measures as above Clinical Quality Measures End of Life/Advance Care Plan: Advance Care discuss with: family member (s) End of Life Care: Comfort Measures Plan: identified end-of-life goals, developed treatment plan Time spent on discussion(mins): 17 FELIICTA GAYTAN MD Dec 26, 2017 18:22
--- OUTSIDE RECORDS SUMMARY | 2017-12-26 18:56 | XMS REPORT | Continuity of Care Document ---
Author Author [facility] Address Unknown Phone Unavailable Allergies Active Description Code Type Severity Reaction Onset Reported/Identified Relationship to Patient Clinical Status Yes PENICILLINS UNKNOWN UNKNOWN Yes Penicillins Drug Allergy 07/04/2012 Yes Penicillins Drug Allergy N/A N/A 07/04/2012 Yes hydroxyzine [id number] Drug Allergy Moderate ALTERED MENTAL 09/06/2013 Yes Penicillins [id number] Drug Allergy Unknown N/A 09/06/2013 Medications Medication [...] 250.00 DIABETES MELLITUS TYPE 2 07/04/2012 CHUCK RELISH MAKER, TABBY S 272.4 HYPERLIPIDEMIA 07/04/2012 CHUCK RELISH MAKER, TABBY S 287.5 THROMBOCYTOPENIA 07/04/2012 CHUCK PERDOMO, TABBY S 300.4 DYSTHYMIC DISORDER 07/04/2012 CHUCK RELISH MAKER, TABBY S V70.0 EXAM - ROUTINE H&P 07/04/2012 CHUCK RELISH MAKER, TABBY S 244.9 HYPOTHYROIDISM 07/04/2012 CHUCK PERDOOM, TABBY S 250.00 DIABETES MELLITUS TYPE 2 07/04/2012 CHUCK PERDOMO, TABBY S 272.4 HYPERLIPIDEMIA 07/04/2012 CHUCK PERDOMO, TABBY S 287.5 THROMBOCYTOPENIA 07/04/2012 CHUCK PERDOMO, TABBY S 300.4 DYSTHYMIC DISORDER 07/04/2012 CHUCK RELISH MAKER, TABBY S V70.0 EXAM - ROUTINE H&P [...] Ot V58.69 OTH MED,LT,CURRENT USE 01/26/2013 CHUCK RELISH MAKER TABBY S 786.52 CHEST WALL PAIN 01/26/2013 CHUCK RELISH MAKER TABBY S 786.52 CHEST WALL PAIN 01/26/2013 CHUCK RELISH MAKER TABBY S 786.52 CHEST WALL PAIN 03/15/2013 CHUCK RELISH MAKER, TABBY S 780.93 MEMORY LOSS 03/15/2013 CHUCK RELISH MAKER, TABBY S 780.93 MEMORY LOSS 09/07/2013 SAMINA [...] 287.5 03/29/2014 Ot 288.00 03/29/2014 TABBY WOODS FREIGHT AND PASSENGER AGENT Ot 250.00 03/29/2014 TABBY WOODS FREIGHT AND PASSENGER AGENT Ot 786.52 03/29/2014 TABBY WOODS FREIGHT AND PASSENGER AGENT Ot 433.30 03/29/2014 TABBY WOODS FREIGHT AND PASSENGER AGENT Ot 780.93 03/29/2014 KRISTEN DAHL, AMINATA [...] 287.5 01/31/2015 Ot 288.00 01/31/2015 TABBY WOODS FREIGHT AND PASSENGER AGENT Ot 250.00 01/31/2015 TABBY WOODS FREIGHT AND PASSENGER AGENT Ot 786.52 01/31/2015 TABBY WOODS FREIGHT AND PASSENGER AGENT Ot 433.30 01/31/2015 TABBY WOODS FREIGHT AND PASSENGER AGENT Ot 780.93 01/31/2015 KRISTEN DAHL, AMINATA [...] GIDDINESS 11/30/2016 KALPANA JEAN MD Ot Z79.82 FOLLOW UP CLERK (CURRENT) USE OF ASPIRIN 11/30/2016 KALPANA JEAN MD Ot Z79.84 FOLLOW UP CLERK (CURRENT) USE OF ORAL HYPOGLYC 11/30/2016 KALPANA [...] ARTERY OCCLUSION WO CEREBRA 11/30/2016 CHUCK, TABBY FREIGHT AND PASSENGER AGENT Ot 780.93 MEMORY LOSS 11/30/2016 AMINATA [...] MD Ot I25.10 ATHSCL HEART DISEASE OF [place] CORONARY 11/30/2016 DALLAS RUBIO MD Ot R07.89 OTHER CHEST PAIN 12/03/2016 TDE DAHL, KALPANA Harrison Ot E03.9 HYPOTHYROIDISM, UNSPECIFIED [...] GIDDINESS 12/03/2016 KALPANA JEAN MD Ot Z79.82 SKILLED NURSING (CURRENT) USE OF ASPIRIN 12/03/2016 KALPANA JEAN MD Ot Z79.84 SKILLED NURSING (CURRENT) USE OF ORAL HYPOGLYC 12/03/2016 KALPANA JEAN MD Ot Z82.49 FAMILY HX OF [place] HEART DIS AND OTH DI 12/03/2016 KALPANA JEAN MD Ot Z87.19 PERSONAL HISTORY OF OTHER DISEASES OF TH 01/07/2017 DALLAS RUBIO MD Ot E78.5 HYPERLIPIDEMIA, UNSPECIFIED 01/07/2017 DALLAS RUBIO MD Ot I10 ESSENTIAL (PRIMARY) HYPERTENSION 01/07/2017 DALLAS RUBIO MD Ot I25.10 ATHSCL HEART DISEASE OF [place] CORONARY 01/07/2017 DALLAS RUBIO MD Ot R00.2 PALPITATIONS 01/07/2017 DALLAS RUBIO MD Ot R07.89 OTHER CHEST PAIN 01/12/2017 DALLAS RUBIO MD Ot E78.5 HYPERLIPIDEMIA, UNSPECIFIED 01/12/2017 DALLAS RUBIO MD Ot I10 ESSENTIAL (PRIMARY) HYPERTENSION 01/12/2017 DALLAS RUBIO MD Ot I25.10 ATHSCL HEART DISEASE OF [place] CORONARY 01/12/2017 DALLAS RUBIO MD Ot R00.2 [...] MD Ot I25.10 ATHSCL HEART DISEASE OF [place] CORONARY 01/28/2017 DALLAS RUBIO MD Ot R00.2 [...] GIDDINESS 02/07/2017 KALPANA JEAN MD Ot Z79.82 SKILLED NURSING (CURRENT) USE OF ASPIRIN 02/07/2017 KALPANA JEAN MD Ot Z79.84 SKILLED NURSING (CURRENT) USE OF ORAL HYPOGLYC 02/07/2017 KALPANA JEAN MD Ot Z82.49 FAMILY HX OF [place] HEART DIS AND OTH DI 02/07/2017 KALPANA JEAN MD Ot Z87.19 PERSONAL HISTORY OF OTHER DISEASES OF TH 02/08/2017 DALLAS RUBIO MD Ot E78.5 HYPERLIPIDEMIA, UNSPECIFIED 02/08/2017 DALLAS RUBIO MD Ot I10 ESSENTIAL (PRIMARY) HYPERTENSION 02/08/2017 DALLAS RUBIO MD Ot I25.10 ATHSCL HEART DISEASE OF [place] CORONARY 02/08/2017 DALLAS RUBIO MD Ot R00.2 PALPITATIONS 02/08/2017 DALLAS RUBIO MD Ot R07.89 OTHER CHEST PAIN 04/27/2017 DERRELL MONROY Ot D72.819 DECREASED WHITE BLOOD CELL COUNT, UNSPEC 04/27/2017 DERRELL MONROY Ot E78.5 HYPERLIPIDEMIA, UNSPECIFIED 04/27/2017 DERRELL MONROY Ot I10 ESSENTIAL (PRIMARY) HYPERTENSION 04/27/2017 DERRELL MONROY Ot R00.2 PALPITATIONS 04/27/2017 DERRELL MONROY Ot Z79.899 OTHER SKILLED NURSING (CURRENT) DRUG THERAPY 06/21/2017 DERRELL MONROY Ot D72.819 DECREASED WHITE BLOOD CELL COUNT, UNSPEC 06/21/2017 ELIANADERRELL N Ot E78.5 HYPERLIPIDEMIA, UNSPECIFIED 06/21/2017 ELIANA, BOBAN N Ot I10 ESSENTIAL (PRIMARY) HYPERTENSION 06/21/2017 ELIANA, BOBAN N Ot R00.2 PALPITATIONS 06/21/2017 ELIANA, BOBAN N Ot Z79.899 OTHER FOLLOW UP CLERK (CURRENT) DRUG THERAPY 06/29/2017 ELIANA, BOBAN N Ot D72.819 DECREASED WHITE BLOOD CELL COUNT, UNSPEC 06/29/2017 ELIANA BOBAN N Ot E78.5 HYPERLIPIDEMIA, UNSPECIFIED 06/29/2017 ELIANA, BOBAN N Ot I10 ESSENTIAL (PRIMARY) HYPERTENSION 06/29/2017 ELIANA, BOBAN N Ot R00.2 PALPITATIONS 06/29/2017 ELIANA, BOBAN N Ot Z79.899 OTHER SKILLED NURSING (CURRENT) DRUG THERAPY 07/25/2017 ELIANA, BOBAN N Ot D72.819 DECREASED WHITE BLOOD CELL COUNT, UNSPEC 07/25/2017 ELIANA BOBKRISTINE N Ot E78.5 HYPERLIPIDEMIA, UNSPECIFIED 07/25/2017 ELIANA, BOBAN N Ot I10 ESSENTIAL (PRIMARY) HYPERTENSION 07/25/2017 ELIANA, BOBAN N Ot R00.2 PALPITATIONS 07/25/2017 ELIANA, BOBAN N Ot Z79.899 OTHER SKILLED NURSING (CURRENT) DRUG THERAPY 07/26/2017 ELIANA, BOBKRISTINE N Ot D72.819 DECREASED WHITE BLOOD CELL COUNT, UNSPEC 07/26/2017 ELIANA, BOBAN N Ot E78.5 HYPERLIPIDEMIA, UNSPECIFIED 07/26/2017 ELIANA, BOBAN N Ot I10 ESSENTIAL (PRIMARY) HYPERTENSION 07/26/2017 ELIANA, BOBAN N Ot R00.2 PALPITATIONS 07/26/2017 ELIANA, BOBAN N Ot Z79.899 OTHER SKILLED NURSING (CURRENT) DRUG THERAPY 11/20/2017 Julita Madrid A [...] Procedures Code Description [place] [address] A1C (IN-HOUSE) 07/04/2012 11663 ROUTINE VENIPUNCTURE 07/04/2012 94378 MICRO ALBUMIN-IN HOUSE 07/04/2012 29211 CMP 07/04/2012 66300 LIPID PANEL 07/04/2012 4366225 GFR CALC (RESULT ONLY) 07/04/2012 36784 CBC 07/04/2012 36412 TSH 07/04/2012 42406 XRAY CHEST 2 VIEW 01/26/2013 23692 MICRO ALBUMIN-IN HOUSE 01/26/2013 33829 A1C (IN-HOUSE) 01/26/2013 07187 US CAROTID DOPPLER 03/15/2013 65116 ROUTINE VENIPUNCTURE 04/04/2013 22977 CMP 04/04/2013 22859 LIPID PANEL 04/04/2013 70886 MAGNESIUM 04/04/2013 [id number] GFR CALC (RESULT ONLY) 04/04/2013 51627 TSH 04/04/2013 11848 CBC 04/04/2013 Results Test Result Range Complete [...] culture - 11/30/16 18:38 Bacterial urine culture [id number] NRG COLONY COUNT >100,000/ML NRG FTX;REPORTABLE SENSITIVITY [...] susceptibility test by minimum inhibitory concentration - [facility] Protime - 01/19/17 09:19 INR 1.1 1.0-4.0 [...] 5-8.5 Urine-Protein Negative Negative Urine-RBC 0-2/HPF Urine-Specific [place] 1.015 1.000-1.030 Urine-WBC 0-2/HPF Urobilinogen 1.0 0.2-1.0 TYPE/SCREEN - 11/20/17 06:25 ABO/RH A POSITIVE ANTIBODY SCREEN NEGATIVE Urine Culture - 11/20/17 07:00 FINAL CULTURE RESULTS >100,000 [id number] Skin Contaminant [id number] Further Workup done MEDIA PLATED Setup at [...] Status Pt. Type Provider Facility Loc./Unit Complaint [id number] 04/04/2013 08:24:00 04/04/2013 23:59:59 [facility] Outpatient TABBY WOODS APRN [id number] 03/15/2013 15:25:00 03/15/2013 23:59:59 [facility] Outpatient TABBY WOODS APRN [id number] 01/26/2013 15:57:00 01/26/2013 23:59:59 CLS Outpatient TABBY WOODS APRN [id number] 07/04/2012 08:16:00 07/04/2012 23:59:59 CLS Outpatient TABBY WOODS APRN S [id number] 11/20/2017 04:25:00 11/20/2017 08:25:00 DIS Outpatient Julita Madrid [facility] ER [id number] 01/19/2017 08:35:00 01/19/2017 10:50:00 DIS Outpatient Delores [facility] ER [id number] 09/27/2016 22:39:00 09/28/2016 01:15:00 [id number] 12/24/2017 11:45:02 Document Registration [id number] 09/28/2016 00:41:45 Document Registration [id number] 07/26/2017 00:41:00 07/26/2017 23:59:59 CLS Preadmit DERRELL MONROY [facility] ONC [id number] 05/27/2017 14:22:00 07/25/2017 00:01:00 DIS Outpatient DERRELL MONROY [facility] ONC [id number] 01/06/2017 07:54:00 01/06/2017 23:59:59 CLS Outpatient DALLAS RUBIO MD [facility] CARD I25.10 [id number] 11/30/2016 17:09:00 11/30/2016 20:02:00 DIS Outpatient KALPANA JEAN MD [facility] ER DISORIENTATION,SWEATY [id number] 01/31/2015 13:51:00 01/31/2015 23:59:59 CLS Outpatient DALLAS RUBIO MD [facility] CARD CAD, CP, HTN, HLD [id number] 04/26/2014 14:39:00 04/26/2014 16:23:00 DIS Emergency CATA TAYLOR MD [facility] ER ABD PAIN/SWELLING [id number] 03/29/2014 13:24:00 03/29/2014 23:59:59 CLS Outpatient SAMINA TREVINO MD [facility] RAD ABD PAIN [id number] 03/29/2014 11:12:00 03/29/2014 23:59:59 CLS Outpatient SAMINA TREVINO MD [facility] RAD ABNORMAL MAMMO [id number] 02/22/2014 08:56:00 02/22/2014 23:59:59 CLS Outpatient SAMINA TREVINO MD [facility] RAD INCREASED BILIRUBIN, ABN LIVER FUNCTION [id number] 09/22/2013 08:52:00 09/22/2013 23:59:59 CLS Outpatient AMINATA PETERSON MD [facility] SDC ABDOMINAL PAIN [id number] 09/20/2013 07:14:00 09/20/2013 23:59:59 CLS Outpatient KRISTEN DAHL, AMINATA [facility] PREOP ABDOMINAL PAIN [id number] 09/06/2013 21:05:00 09/07/2013 13:15:00 DIS Inpatient BELINDA DAHL, SAMINA Duke [facility] 4TH ACUTE COLITIS, ABD PAIN, UTI, LEUKOPENIA [id number] 03/22/2013 13:01:00 03/22/2013 23:59:59 CLS Outpatient TABBY WOODS [facility] RAD MEMORY LOSS [id number] 01/26/2013 17:07:00 01/26/2013 23:59:59 CLS Outpatient TABBY WOODS [facility] RAD CHEST WALL PAIN [id number] 11/22/2012 10:06:00 11/28/2012 00:01:00 DIS Outpatient BAKARI FOX MD [facility] ONC [id number] 12/16/2017 13:55:00 Document Registration [id number] 06/08/2013 00:00:00 Document Registration [id number] 05/25/2012 09:00:00 Document Registration [id number] 05/24/2012 10:44:00 Document Registration [id number] 05/23/2012 08:50:00 Document Registration [id number] 05/17/2012 14:58:00 Document Registration [id number] 05/12/2012 08:14:00 Document Registration [id number] 04/25/2012 10:55:00 Document Registration [id number] 03/16/2012 11:08:00 Document Registration [id number] 04/01/2011 05:31:00 Document Registration [id number] 03/31/2011 08:31:00 Document Registration
[2017-12-26] MEDS: morphine INJ 4 MG/ML 1 ML (VIAL/SYRINGE) IVP PRN (23:55)
[2017-12-27] MEDS: morphine INJ 4 MG/ML 1 ML (VIAL/SYRINGE) IVP PRN ×4 (03:55→17:06)
[2017-12-27] MEDS ORDERED: ONDANSETRON 4 MG/2 ML (SDV) Z0FRAN IVP PRN (07:30)
[2017-12-27] MEDS ORDERED: SCOPOLAMINE 1.5 MG (TRANSDERM-SCOP) PATCH TOP SCH (07:30)
[2017-12-27] MEDS ORDERED: ATROPINE 1% OPHTHALMIC SOLN 2 ML SL PRN (07:30)
[2017-12-27] MEDS ORDERED: morphine (ROXINOL) 10 MG/0.5 ML oral conc 0.5 ML PO PRN (07:30)
[2017-12-27] MEDS ORDERED: SALIVA STIMULANT MOUTH SPRAY (BIOTENE) 1.5 OZ MM PRN (07:30)
[2017-12-27] MEDS ORDERED: GLYCOPYRROLATE 0.2 MG/ML (ROBINUL) 2 ML VIAL IV PRN (07:30)
[2017-12-27] MEDS ORDERED: ARTIFICAL TEARS 0.4 ML UNIT DOSE (REFRESH PLUS) OU PRN (07:30)
[2017-12-27] MEDS ORDERED: RT-ALBUTEROL/IPRATROPIUM 3 ML (DUONEB) VIAL INH PRN (07:30)
[2017-12-27] MEDS ORDERED: BISACODYL 10 MG SUPP (DULCOLAX) PR PRN (07:30)
[2017-12-27] MEDS ORDERED: OXYC-529 PO (08:40)
[2017-12-27] MEDS ORDERED: FURO40TA4 PO (08:40)
--- NOTE | 2017-12-27 08:41 | Occ Therapy Progress Note ---
Therapy Progress Note OT order received, chart reviewed. This pt. is known to this clinician. Physician documents comfort measures only. Will hold OT at this time unless family changes their mind for skilled OT treatment. 0840 HARLEEN TERRY OT Dec 27, 2017 08:41
[2017-12-27] MEDS: LORazepam INJ 2 MG/ML (ATIVAN) VIAL IVP PRN (10:25)
--- NOTE | 2017-12-27 16:32 | Progress Note-Hospitalist ---
Progress Note Progress Notes/Assess & Plan Date Seen 12/27/17 Time Seen by Provider: 16:27 Assessment & Plan The patient is a 77-year-old white female known to me from previous contacts. 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 She had been here recently and returns with minimal alertness. The patient's family had declined hospice status previously but are interested in exploring that at this time. Her ammonia is 126/32. She is deeply somnolent at this time. The family states that she has not spoken to anyone today. Physical exam: She looks comfortable and as if in a deep sleep. She does not respond to voice or touch. Lungs are clear to auscultation. CV is regular. Impression: Advanced Ramos with liver failure and hepatic encephalopathy. Plan: Hospice is to be here this afternoon to go over there services with the family. They are committed to taking her home when this was completed. Focused Exam Lactate Level 12/26/17 15:55: Lactic Acid Level 1.96 CATA TAYLOR MD Dec 27, 2017 16:32
[2017-12-28] VITALS: BP 92/51
[2017-12-28] MEDS: morphine INJ 4 MG/ML 1 ML (VIAL/SYRINGE) IVP PRN ×4 (05:41→18:05)
[2017-12-28] MEDS: LORazepam INJ 2 MG/ML (ATIVAN) VIAL IVP PRN ×3 (12:25→22:00)
[2017-12-29] MEDS: morphine INJ 4 MG/ML 1 ML (VIAL/SYRINGE) IVP PRN ×2 (06:40→10:56)
--- NOTE | 2017-12-29 08:51 | Progress Note-Hospitalist ---
AJ AVENDAÑO MEDICAL STUDENT 12/29/17 0851: Subjective HPI/CC On Admission Date Seen by Provider: Dec 29, 2017 Time Seen by Provider: 07:30 Pt is 77yoCf known to me from recent admission who presented to the ER with CC of altered mental status. All history is obtained through family as she is unable to provide any history. 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 She was recently discharged from here to home as family wanted to give her 100% chance at recovery. Unfortunately at home she continued to worsen and this morning she was found to be very confused and nearly unresponsive. They checked her blood sugar which was 160 and her vitals and the only abnormality was she was mildly hypotensive (~95/65). On arrival she was found to still be unresponsive and her ammonia level was 128. At this time her family has elected to pursue comfort measures only. Subjective/Events-last exam Pt had no acute events overnight. Augustin, her daughter stayed with her. Discussed pt with Augustin. Pt does not seem to be in pain. She only wakes up when being turned. Pt had gurgly breathing overnight and was given glycopyrollate which helped. Family without questions or concerns at this time. Would like to stay admitted rather than discharging with hospice. Focused Exam Lactate Level Respiratory: Decreased Breath Sounds, Rhonci, Other (Breathing is irregular) Cardiovascular: Regular Rate, Rhythm, No Edema, Systolic Murmur Skin: normal color, warm/dry Objective Exam Vital Signs Capillary Refill : Less Than 3 Seconds Results/Procedures Lab Patient resulted labs reviewed. 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 -Proceed with comfort measures. -Patient will likely remain inpatient until she passes. Clinical Quality Measures DVT/VTE Risk/Contraindication: Risk Factor Score Per Nursin RFS Level Per Nursing on Admit: 4+=Very High NEYMAR RODRIGUEZ DO 01/19/18 1316: Subjective Subjective/Events-last exam Patient with family at bedside home contacted. Objective Exam General Appearance: Other () Assessment/Plan Assessment and Plan Assess & Plan/Chief Complaint AJ AVENDAÑO MEDICAL STUDENT Dec 29, 2017 08:51 NEYMAR RODRIGUEZ DO Jan 19, 2018 13:16
[2017-12-29] MEDS: LORazepam INJ 2 MG/ML (ATIVAN) VIAL IVP PRN ×2 (09:09→13:39)
--- NOTE | 2017-12-29 14:48 | Progress Note-Hospitalist ---
Progress Note Progress Notes/Assess & Plan Date Seen 12/28/17 Time Seen by Provider: 14:00 Assessment & Plan The patient remains deeply unresponsive. Her respirations are shallow and regular. CV shows a rate of 90 with a grade 2 systolic ejection murmur along the left sternal border. Abdomen is scaphoid. Feet show no edema. Disposition that was discussed with family. It was planned that she go to [facility] tomorrow on hospice from [place]. It was also planned that she would require an ambulance given her condition. Impression: AGUIRRE. 2.hepatic encephalopathy Plan: Focused Exam Lactate Level 12/26/17 15:55: Lactic Acid Level 1.96 CATA TAYLOR MD Dec 29, 2017 14:48
--- NOTE | 2017-12-29 14:53 | Progress Note-Hospitalist ---
Progress Note Progress Notes/Assess & Plan Date Seen 12/29/17 Time Seen by Provider: 14:49 Assessment & Plan The family reported that they wished that some family member be present at the patient's . They were inferior that she would on the transport to [place] and be alone. Additional alternatives were explored. Ultimately after discussion with [facility] it was revealed that she could be dismissed as an inpatient and changed to inpatient hospice respite status which would allow 5 additional days. This seemed to be agreeable to all parties. Physical exam the patient is deeply somnolent. She does not respond to voice or touch. Her respiratory rate seems a bit more rapid than yesterday. CV is regular in the 90-100 range and there is a grade 2 systolic murmur along the left sternal border. The feet are now cold. Impression: AGUIRRE. 2.end-stage liver failure and hepatic encephalopathy. Plan: Change in status. See above Focused Exam Lactate Level 12/26/17 15:55: Lactic Acid Level 1.96 CATA TAYLOR MD Dec 29, 2017 14:53
[2017-12-29] MEDS ORDERED: LORazepam ORAL CONCENTRATE 2 MG/ML 30 ML (ATIVAN) SL PRN (15:30)
[2017-12-29] MEDS ORDERED: morphine (ROXINOL) 10 MG/0.5 ML oral conc 0.5 ML PO PRN (15:45)
[2017-12-30] MEDS ORDERED: SCOPOLAMINE PATCH REMOVAL TP SCH (07:29)
--- NOTE | 2018-01-19 14:05 | Discharge Summary-Hospitalist ---
Diagnosis/Chief Complaint Date of Admission Dec 26, 2017 at 19:40 Date of Discharge Dec 29, 2017 at 13:40 Discharge Date: Dec 29, 2017 Admission Diagnosis Hepatic Encephalopathy Discharge Diagnosis 1.AGUIRRE. 2.end-stage cirrhosis and liver failure. 3.hepatic encephalopathy (1) Hepatic coma/encephalopathy Status: Acute Assessment & Plan: Mentation far worse than on discharge despite treatment with lactulose Worsening ESLD Family electing comfort measures only (2) Need for comfort care Status: Acute Assessment & Plan: Discussed with family who would like to enroll in hospice They are unfamiliar with any hospice agencies Consult palliative care and hospice for AM Comfort care order set in place (3) End stage liver disease Status: Acute Assessment & Plan: Terminal disease Comfort measures as above Discharge Summary Discharge Physical Exam Allergies: Coded Allergies: hydroxyzine (Unverified Adverse Reaction, Intermediate, ALTERED MENTAL STATUS, 09/06/13) Penicillins (Unverified Adverse Reaction, Unknown, 09/06/13) General Appearance: Other Hospital Course The patient was known to this institution. She had been declining in function at home as a result of her progressive liver disease/cirrhosis. She had recently been hospitalized and returned at this time much less alert and with additional increase in her serum ammonia despite use of lactulose at home. It was reaffirmed with the family that this was an end-stage irreversible process. They were concerned about the question of her discomfort and were reassured that as best we might know the hepatic encephalopathy is likely general anesthesia. Arrangements were made with hospice and she was changed to respite care status. Medications were trimmed to only those useful for comfort sake. It was expected that this was her terminal illness Labs (last 24 hrs) Microbiology 12/26/17 Blood Culture - Final, Complete No growth 12/26/17 Urine Culture - Final, Complete Yeast species Patient resulted labs reviewed. Discussion & Recommendations Discharge Planning: >30 minutes discharge planning Discharge Home Medications: Active Scripts Active Lactulose 20 Gm/30 Ml Solution 10 Gm PO BID Nystatin 100,000 Unit/1 Ml Oral.susp 5 Ml PO Q6HR Reported Furosemide 40 Mg Tablet 40 Mg PO DAILY Oxycodone HCl 5 Mg Tablet 5 Mg PO Q6H Spironolactone 100 Mg Tablet 100 Mg PO DAILY Calcium Carbonate 600 Mg Tablet 600 Mg PO HS Escitalopram Oxalate 20 Mg Tablet 20 Mg PO DAILY Levothyroxine Sodium 50 Mcg Tablet 50 Mcg PO DAILY Fludrocortisone Acetate 0.1 Mg Tab 0.1 Mg PO DAILY Instructions to patient/family Please see electronic discharge instructions given to patient. Clinical Quality Measures DVT/VTE Risk/Contraindication: Risk Factor Score Per Nursin RFS Level Per Nursing on Admit: 4+=Very High CATA TAYLOR MD Jan 19, 2018 14:04
== END 2017-12-29 13:40 | disposition hospice, inpatient (51) ==
LOC: EDUNIT# 15:54 → ER 15:55 → 4TH 17:40 → UNDOADMOB 17:40 → 4TH 19:40 → INTOOBSV 12-29 13:34 → OBSVTOIN 12-29 13:34
PROVIDERS: ADMIT Family Medicine; ATTEND Family Medicine
DX: K72.91 Hepatic failure, unspecified with coma (principal); K75.81 Nonalcoholic steatohepatitis (NASH); K74.60 Unspecified cirrhosis of liver; E11.9 Type 2 diabetes mellitus without complications; E03.9 Hypothyroidism, unspecified; E78.00 Pure hypercholesterolemia, unspecified; F41.9 Anxiety disorder, unspecified; Z51.5 Encounter for palliative care; Z79.899 Other long term (current) drug therapy
CPT/HCPCS: 36415; 70450; 71045; 80053; 81000; 82140; 83605; 84484; 85025; 85610; 85730; 87040; 87088; 93005; 94760; 96361; 96365; G0378

== ENCOUNTER 2017-12-29 13:49 | Inpatient (IN) | payer OTHER, MEDICARE, MEDICAID ==
[~2017-12-29] VITALS: Ht 162.6 cm; Wt 57.6 kg
[~2017-12-29 13:49] MED LIST changes: +OXYC-529 PO
[2017-12-29] MEDS ORDERED: morphine (ROXINOL) 10 MG/0.5 ML oral conc 0.5 ML PO PRN ×2 (15:00→16:45)
[2017-12-29] MEDS ORDERED: SCOPOLAMINE 1.5 MG (TRANSDERM-SCOP) PATCH TOP SCH (15:00)
[2017-12-29] MEDS ORDERED: PATIENT MAY USE OWN MEDS, ALL MC SCH (15:30)
--- OUTSIDE RECORDS SUMMARY | 2017-12-29 16:35 | XMS REPORT | Continuity of Care Document ---
Author Author Formerly [facility], Later [facility] Address Unknown Phone Unavailable Allergies Active Description Code Type Severity Reaction Onset Reported/Identified Relationship to Patient Clinical Status Yes PENICILLINS UNKNOWN UNKNOWN Yes Penicillins Drug Allergy 07/04/2012 Yes Penicillins Drug Allergy N/A N/A 07/04/2012 Yes hydroxyzine [id number] Drug Allergy Moderate ALTERED MENTAL 09/06/2013 Yes Penicillins [id number] Drug Allergy Unknown N/A 09/06/2013 Medications Medication [...] 250.00 DIABETES MELLITUS TYPE 2 07/04/2012 CHUCK [employer] TICK[employer] DISTRIBUTOR, TABBY S 272.4 HYPERLIPIDEMIA 07/04/2012 CHUCK WORK TICKET DISTRIBUTOR, TABBY S 287.5 THROMBOCYTOPENIA 07/04/2012 CHUCK PERDOMO, TABBY S 300.4 DYSTHYMIC DISORDER 07/04/2012 CHUCK WORK TICKET DISTRIBUTOR, TABBY S V70.0 EXAM - ROUTINE H&P 07/04/2012 CHUCK WORK TICKET DISTRIBUTOR, TABBY S 244.9 HYPOTHYROIDISM 07/04/2012 CHUCK PERDOMO, TABBY S 250.00 DIABETES MELLITUS TYPE 2 07/04/2012 CHUCK PERDOMO, TABBY S 272.4 HYPERLIPIDEMIA 07/04/2012 CHUCK PERDOMO, TABBY S 287.5 THROMBOCYTOPENIA 07/04/2012 CHUCK PERDOMO, TABBY S 300.4 DYSTHYMIC DISORDER 07/04/2012 CHUCK WORK TICKET DISTRIBUTOR, TABBY S V70.0 EXAM - ROUTINE H&P [...] Ot V58.69 OTH MED,LT,CURRENT USE 01/26/2013 CHUCK WORK TICKET DISTRIBUTOR TABBY S 786.52 CHEST WALL PAIN 01/26/2013 CHUCK WORK TICKET DISTRIBUTOR TABBY S 786.52 CHEST WALL PAIN 01/26/2013 CHUCK WORK TICKET DISTRIBUTOR TABBY S 786.52 CHEST WALL PAIN 03/15/2013 CHUCK WORK TICKET DISTRIBUTOR, TABBY S 780.93 MEMORY LOSS 03/15/2013 CHUCK WORK TICKET DISTRIBUTOR, TABBY S 780.93 MEMORY LOSS 09/07/2013 SAMINA [...] 287.5 03/29/2014 Ot 288.00 03/29/2014 TABBY WOODS BI TESTER Ot 250.00 03/29/2014 TABBY WOODS BI TESTER Ot 786.52 03/29/2014 TABBY WOODS BI TESTER Ot 433.30 03/29/2014 TABBY WOODS BI TESTER Ot 780.93 03/29/2014 KRISTEN DAHL, AMINATA Ot [...] 287.5 01/31/2015 Ot 288.00 01/31/2015 TABBY WOODS BI TESTER Ot 250.00 01/31/2015 TABBY WOODS BI TESTER Ot 786.52 01/31/2015 TABBY WOODS BI TESTER Ot 433.30 01/31/2015 TABBY WOODS BI TESTER Ot 780.93 01/31/2015 KRISTEN DAHL, AMINATA Ot [...] GIDDINESS 11/30/2016 KALPANA JEAN MD Ot Z79.82 VETERINARY BACTERIOLOGIST (CURRENT) USE OF ASPIRIN 11/30/2016 KALPANA JEAN MD Ot Z79.84 VETERINARY BACTERIOLOGIST (CURRENT) USE OF ORAL HYPOGLYC 11/30/2016 KALPANA [...] ARTERY OCCLUSION WO CEREBRA 11/30/2016 CHUCK, TABBY BI TESTER Ot 780.93 MEMORY LOSS 11/30/2016 AMINATA PETERSON [...] MD Ot I25.10 ATHSCL HEART DISEASE OF [place] CORONARY 11/30/2016 DALLAS RUBIO MD Ot R07.89 [...] GIDDINESS 12/03/2016 KALPANA JEAN MD Ot Z79.82 ASSISTED (CURRENT) USE OF ASPIRIN 12/03/2016 KALPANA JEAN MD Ot Z79.84 ASSISTED (CURRENT) USE OF ORAL HYPOGLYC 12/03/2016 KALPANA JEAN MD Ot Z82.49 FAMILY HX OF I[place]HE[place] HEART DIS AND OTH DI 12/03/2016 KALPANA JEAN MD Ot Z87.19 PERSONAL HISTORY OF OTHER DISEASES OF TH 01/07/2017 DALLAS RUBIO MD Ot E78.5 HYPERLIPIDEMIA, UNSPECIFIED 01/07/2017 DALLAS RUBIO MD Ot I10 ESSENTIAL (PRIMARY) HYPERTENSION 01/07/2017 DALLAS RUBIO MD Ot I25.10 ATHSCL HEART DISEASE OF [place] CORONARY 01/07/2017 DALLAS RUBIO MD Ot R00.2 PALPITATIONS 01/07/2017 DALLAS RUBIO MD Ot R07.89 OTHER CHEST PAIN 01/12/2017 DALLAS RUBIO MD Ot E78.5 HYPERLIPIDEMIA, UNSPECIFIED 01/12/2017 DALLAS RUBIO MD Ot I10 ESSENTIAL (PRIMARY) HYPERTENSION 01/12/2017 DALLAS RUBIO MD Ot I25.10 ATHSCL HEART DISEASE OF [place] CORONARY 01/12/2017 DALLAS RUBIO MD Ot R00.2 [...] MD Ot I25.10 ATHSCL HEART DISEASE OF [place] CORONARY 01/28/2017 DALLAS RUBIO MD Ot R00.2 [...] GIDDINESS 02/07/2017 KALPANA JEAN MD Ot Z79.82 ASSISTED (CURRENT) USE OF ASPIRIN 02/07/2017 KALPANA JEAN MD Ot Z79.84 ASSISTED (CURRENT) USE OF ORAL HYPOGLYC 02/07/2017 KALPANA JEAN MD Ot Z82.49 FAMILY HX OF [place] HEART DIS AND OTH DI 02/07/2017 KALPANA JEAN MD Ot Z87.19 PERSONAL HISTORY OF OTHER DISEASES OF TH 02/08/2017 DALLAS RUBIO MD Ot E78.5 HYPERLIPIDEMIA, UNSPECIFIED 02/08/2017 DALLAS RUBIO MD Ot I10 ESSENTIAL (PRIMARY) HYPERTENSION 02/08/2017 DALLAS RUBIO MD Ot I25.10 ATHSCL HEART DISEASE OF [place] CORONARY 02/08/2017 DALLAS RUBIO MD Ot R00.2 PALPITATIONS 02/08/2017 DALLAS RUBIO MD Ot R07.89 OTHER CHEST PAIN 04/27/2017 DERRELL MONROY Ot D72.819 DECREASED WHITE BLOOD CELL COUNT, UNSPEC 04/27/2017 DERRELL MONROY Ot E78.5 HYPERLIPIDEMIA, UNSPECIFIED 04/27/2017 DERRELL MONROY Ot I10 ESSENTIAL (PRIMARY) HYPERTENSION 04/27/2017 DERRELL MONROY Ot R00.2 PALPITATIONS 04/27/2017 DERRELL MONROY Ot Z79.899 OTHER ASSISTED (CURRENT) DRUG THERAPY 06/21/2017 DERRELL MONROY Ot D72.819 DECREASED WHITE BLOOD CELL COUNT, UNSPEC 06/21/2017 ELIANADERRELL N Ot E78.5 HYPERLIPIDEMIA, UNSPECIFIED 06/21/2017 ELIANA, BOBAN N Ot I10 ESSENTIAL (PRIMARY) HYPERTENSION 06/21/2017 ELIANA, BOBAN N Ot R00.2 PALPITATIONS 06/21/2017 ELIANA, BOBAN N Ot Z79.899 OTHER VETERINARY BACTERIOLOGIST (CURRENT) DRUG THERAPY 06/29/2017 ELIANA, BOBAN N Ot D72.819 DECREASED WHITE BLOOD CELL COUNT, UNSPEC 06/29/2017 ELIANA BOBAN N Ot E78.5 HYPERLIPIDEMIA, UNSPECIFIED 06/29/2017 ELIANA, BOBAN N Ot I10 ESSENTIAL (PRIMARY) HYPERTENSION 06/29/2017 ELIANA, BOBAN N Ot R00.2 PALPITATIONS 06/29/2017 ELIANA, BOBAN N Ot Z79.899 OTHER ASSISTED (CURRENT) DRUG THERAPY 07/25/2017 ELIANA, BOBAN N Ot D72.819 DECREASED WHITE BLOOD CELL COUNT, UNSPEC 07/25/2017 ELIANA BOBKRISTINE N Ot E78.5 HYPERLIPIDEMIA, UNSPECIFIED 07/25/2017 ELIANA, BOBAN N Ot I10 ESSENTIAL (PRIMARY) HYPERTENSION 07/25/2017 ELIANA, BOBAN N Ot R00.2 PALPITATIONS 07/25/2017 ELIANA, BOBAN N Ot Z79.899 OTHER ASSISTED (CURRENT) DRUG THERAPY 07/26/2017 ELIANA, BOBKRISTINE N Ot D72.819 DECREASED WHITE BLOOD CELL COUNT, UNSPEC 07/26/2017 ELIANA, BOBAN N Ot E78.5 HYPERLIPIDEMIA, UNSPECIFIED 07/26/2017 ELIANA, BOBAN N Ot I10 ESSENTIAL (PRIMARY) HYPERTENSION 07/26/2017 ELIANA, BOBAN N Ot R00.2 PALPITATIONS 07/26/2017 ELIANA, BOBAN N Ot Z79.899 OTHER ASSISTED (CURRENT) DRUG THERAPY 11/20/2017 Julita Madrid A [...] UNSPECIFIED CIRRHOSIS OF LIVER 11/20/2017 Julita Madrid W N17.9 ACUTE KIDNEY FAILURE, UNSPECIFIED 11/20/2017 Julita Madrid W N39.0 URINARY TRACT INFECTION, SITE NOT SPECIFIED 11/20/2017 Julita Madrid S72.012A UNSP INTRACAPSULAR FRACTURE OF LEFT FEMUR, INIT FOR CLOS FX 12/22/2017 MICHAEL DO NEYMAR Ot D64.9 ANEMIA, UNSPECIFIED 12/22/2017 MICHAEL DO NEYMAR Ot D69.59 OTHER SECONDARY THROMBOCYTOPENIA 12/22/2017 MICHAEL WHEATLEY NEYMAR Ot E03.9 HYPOTHYROIDISM, UNSPECIFIED 12/22/2017 MICHAEL WHEATLEY NEYMAR Ot E11.9 TYPE 2 DIABETES MELLITUS WITHOUT COMPLIC 12/22/2017 MICHAEL WHEATLEY NEYMAR Ot E78.00 PURE HYPERCHOLESTEROLEMIA, UNSPECIFIED 12/22/2017 MICHAEL DO NEYMAR Ot E87.1 HYPO-OSMOLALITY AND HYPONATREMIA 12/22/2017 MICHAEL WHEATLEY NEYMAR Ot F03.90 UNSPECIFIED DEMENTIA WITHOUT BEHAVIORAL 12/22/2017 MICHAEL WHEATLEY NEYMAR Ot F32.9 MAJOR DEPRESSIVE DISORDER, SINGLE EPISOD 12/22/2017 MICHAEL WHEATLEY NEYMAR Ot F41.9 ANXIETY DISORDER, UNSPECIFIED 12/22/2017 MICHAEL WHEATLEY NEYMAR Ot G93.41 METABOLIC ENCEPHALOPATHY 12/22/2017 MICHAEL WHEATLEY NEYMAR Ot K57.90 DVRTCLOS OF INTEST, PART UNSP, W/O PERF 12/22/2017 MICHAEL WHEATLEY NEYMAR Ot K72.90 HEPATIC FAILURE, UNSPECIFIED WITHOUT COM 12/22/2017 MICHAEL WHEATLEY NEYMAR Ot 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) 12/22/2017 MICHAEL WHEATLEY NEYMAR Ot K76.6 PORTAL HYPERTENSION 12/22/2017 MICHAEL WHEATLEY NEYMAR Ot K76.7 HEPATORENAL SYNDROME 12/22/2017 MICHAEL WHEATLEY NEYMAR Ot K92.2 GASTROINTESTINAL HEMORRHAGE, UNSPECIFIED 12/22/2017 MICHAEL WHEATLEY NEYMAR Ot L30.9 DERMATITIS, UNSPECIFIED 12/22/2017 MICHAEL WHEATLEY NEYMAR Ot M19.91 PRIMARY OSTEOARTHRITIS, UNSPECIFIED SITE 12/22/2017 RODRIGUEZ DO NEYMAR Ot N17.9 ACUTE KIDNEY FAILURE, UNSPECIFIED 12/22/2017 MICHAEL WHEATLEY NEYMAR Ot N30.01 ACUTE CYSTITIS WITH HEMATURIA 12/22/2017 RODRIGUEZ DO NEYMAR Ot R18.8 OTHER ASCITES 12/22/2017 MICHAEL WHEATLEY NEYMAR Ot R53.81 OTHER MALAISE 12/22/2017 MICHAEL WHEATLEY NEYMAR Ot R79.1 ABNORMAL COAGULATION PROFILE 12/22/2017 RODRIGUEZ DO NEYMAR Ot Z66 DO NOT RESUSCITATE 12/22/2017 MICHAEL WHEATLEY NEYMAR Ot Z79.01 ASSISTED (CURRENT) USE OF ANTICOAGULANT 12/22/2017 RODRIGUEZPHILIP WHEATLEY NEYMAR Ot Z79.84 VETERINARY BACTERIOLOGIST (CURRENT) USE OF ORAL HYPOGLYC 12/22/2017 RODRIGUEZ NEYMAR Ot Z96.642 PRESENCE OF LEFT ARTIFICIAL HIP JOINT 12/29/2017 Ot 287.5 THROMBOCYTOPENIA NOS 12/29/2017 Ot 288.00 NEUTROPENIA , UNSPECIFIED 12/29/2017 TABBY WOODS BI TESTER Ot 250.00 DIAB [place] WO COMPL, TYPE II OR UNSPEC TY 12/29/2017 TABBY WOODSP Ot 786.52 PAINFUL RESPIRATION 12/29/2017 TABBY WOODSP Ot 433.30 MULT BILTRAL ARTERY OCCLUSION WO CEREBRA 12/29/2017 TABBY WOODSP Ot 780.93 MEMORY LOSS 12/29/2017 AMINATA PETERSON MD Ot 455.0 INT HEMORRHOID W/O COMPL 12/29/2017 AMINATA PETERSON MD Ot 455.3 EXT HEMORRHOID W/O COMPL 12/29/2017 AMINATA PETERSON MD Ot 530.11 REFLUX ESOPHAGITIS 12/29/2017 AMINATA PETERSON MD Ot 535.50 UNSP GASTRITIS GASTRODUODENITIS W/O ME 12/29/2017 AMINATA PETERSON MD Ot 553.3 DIAPHRAGMATIC HERNIA 12/29/2017 AMINATA PETERSON MD Ot 562.10 DIVERTICULOSIS COLON (W/O MENT OF HEMORR 12/29/2017 AMINATA PETERSON MD Ot 569.0 ANAL RECTAL POLYP 12/29/2017 AMINATA PETERSON MD Ot V72.84 EXAM PRE-OPERATIVE NOS 12/29/2017 BELINDA DAHL, SAMINA Duke Ot 571.5 CIRRHOSIS OF LIVER NOS 12/29/2017 BELINDA DAHL, SAMINA Duke Ot 793.80 UNSPEC ABNORMAL MAMMOGRAM 12/29/2017 SAMINA TREVINO MD Ot 789.00 ABDOMINAL PAIN, UNSPECIFIED SITE 12/29/2017 DALLAS RUBIO MD Ot E78.5 HYPERLIPIDEMIA, UNSPECIFIED 12/29/2017 DALLAS RUBIO MD Ot I10 ESSENTIAL (PRIMARY) HYPERTENSION 12/29/2017 DALLAS RUBIO MD Ot I25.10 ATHSCL HEART DISEASE OF [place] CORONARY 12/29/2017 DALLAS RUBIO MD Ot R07.89 OTHER CHEST PAIN 12/29/2017 DALLAS RUBIO MD Ot E78.5 HYPERLIPIDEMIA, UNSPECIFIED 12/29/2017 DALLAS RUBIO MD Ot I10 ESSENTIAL (PRIMARY) HYPERTENSION 12/29/2017 DALLAS RUBIO MD Ot I25.10 ATHSCL HEART DISEASE OF [place] CORONARY 12/29/2017 DALLAS RUBIO MD Ot R00.2 PALPITATIONS 12/29/2017 DALLAS RUBIO MD Ot R07.89 OTHER CHEST PAIN 12/29/2017 DERRELL MONROY Ot D72.819 DECREASED WHITE BLOOD CELL COUNT, UNSPEC 12/29/2017 DERRELL MONROY Ot E78.5 HYPERLIPIDEMIA, UNSPECIFIED 12/29/2017 DERRELL MONROY Ot I10 ESSENTIAL (PRIMARY) HYPERTENSION 12/29/2017 DERRELL MONROY Ot R00.2 PALPITATIONS 12/29/2017 DERRELL MONROY Ot Z79.899 OTHER VETERINARY BACTERIOLOGIST (CURRENT) DRUG THERAPY Procedures Code Description [place] [address] A1C (IN-HOUSE) 07/04/2012 54616 ROUTINE VENIPUNCTURE 07/04/2012 37590 MICRO ALBUMIN-IN HOUSE 07/04/2012 06246 CMP 07/04/2012 04270 LIPID PANEL 07/04/2012 0912621 GFR CALC (RESULT ONLY) 07/04/2012 83936 CBC 07/04/2012 74375 TSH 07/04/2012 42064 XRAY CHEST 2 VIEW 01/26/2013 64188 MICRO ALBUMIN-IN HOUSE 01/26/2013 02960 A1C (IN-HOUSE) 01/26/2013 32373 US CAROTID DOPPLER 03/15/2013 28369 ROUTINE VENIPUNCTURE 04/04/2013 93315 CMP 04/04/2013 88277 LIPID PANEL 04/04/2013 13673 MAGNESIUM 04/04/2013 3062830 GFR CALC (RESULT ONLY) 04/04/2013 84648 TSH 04/04/2013 93101 CBC 04/04/2013 [id number] DRAINAGE OF PERITONEAL CAVITY WITH DRAIN 12/20/2017 Results Test Result Range Complete blood count [...] culture - 11/30/16 18:38 Bacterial urine culture [id number] NRG COLONY COUNT >100,000/ML NRG FTX;REPORTABLE SENSITIVITY REPORTED 12/02/16 8:45 NRG FREE TEXT ENTRY 2 PLUS, NRG FREE TEXT ENTRY 3 MIXED GRAM POSITIVES <10,000/ML NRG Bacterial susceptibility panel - 11/30/16 18:38 Gentamicin [...] susceptibility test by minimum inhibitory concentration - NRG Protime - 01/19/17 09:19 INR 1.1 1.0-4.0 [...] 5-8.5 Urine-Protein Negative Negative Urine-RBC 0-2/HPF Urine-Specific [place] 1.015 1.000-1.030 Urine-WBC 0-2/HPF Urobilinogen 1.0 0.2-1.0 TYPE/SCREEN - 11/20/17 06:25 ABO/RH A POSITIVE ANTIBODY SCREEN NEGATIVE Urine Culture - 11/20/17 07:00 FINAL CULTURE RESULTS >100,000 [id number] Skin Contaminant [id number] Further Workup done MEDIA PLATED Setup at 07:02 on 11/20/2017 CULTURE SOURCE cath urine Bacterial urine culture - 12/15/17 11:00 Bacterial urine culture SEE COMMEN NRG COLONY COUNT . NRG Blood type T Indirect antibody screen panel - 12/15/17 11:34 ABO+Rh group AP NRG Transfusion band number [id number] NRG Blood group antibody screen NEGATIVE NRG Methicillin resistant Staphylococcus aureus (MRSA) screening [...] - 12/18/17 06:20 Ammonia 62 umol/L 11-32 Complete blood count (CBC) with automated white blood cell (WBC) differential - 12/19/17 06:20 Blood leukocytes automated count (number/volume) 4.5 10*3/uL 4.3-11.0 Blood erythrocytes automated count (number/volume) 2.49 10*6/uL 4.35-5.85 Venous blood hemoglobin measurement (mass/volume) 8.5 g/dL 11.5-16.0 Blood hematocrit (volume fraction) 26 % 35-52 Automated erythrocyte mean corpuscular volume 106 [foz_us] 80-99 Automated erythrocyte mean corpuscular hemoglobin (mass per erythrocyte) 34 pg 25-34 Automated erythrocyte mean corpuscular hemoglobin concentration measurement ( mass/volume) 32 g/dL 32-36 Automated erythrocyte distribution width ratio 19.0 % 10.0-14.5 Automated blood platelet count (count/volume) 79 10*3/uL 130-400 Automated blood platelet mean volume measurement 10.1 [foz_us] 7.4-10.4 Automated blood neutrophils/100 leukocytes 71 % 42-75 Automated blood lymphocytes/100 leukocytes 16 % 12-44 Blood monocytes/100 leukocytes 12 % 0-12 Automated blood eosinophils/100 leukocytes 2 % 0-10 Automated blood basophils/100 leukocytes 0 % 0-10 Blood neutrophils automated count (number/volume) 3.2 10*3 1.8-7.8 Blood lymphocytes automated count (number/volume) 0.7 10*3 1.0-4.0 Blood monocytes automated count (number/volume) 0.5 10*3 0.0-1.0 Automated eosinophil count 0.1 10*3/uL 0.0-0.3 Automated blood basophil count (count/volume) 0.0 10*3/uL 0.0-0.1 PT panel in platelet poor plasma by coagulation assay - 12/19/17 06:20 Prothrombin time (PT) in platelet poor plasma by coagulation assay 16.1 s 12.2-14.7 INR in platelet poor plasma or blood by coagulation assay 1.3 0.8-1.4 Comprehensive metabolic panel - 12/19/17 06:20 Serum or plasma sodium measurement (moles/volume) 140 mmol/L 135-145 Serum or plasma potassium measurement (moles/volume) 3.5 mmol/L 3.6-5.0 Serum or plasma chloride measurement (moles/volume) 110 mmol/L 98-107 Carbon dioxide 21 mmol/L 21-32 Serum or plasma anion gap determination (moles/volume) 9 mmol/L 5-14 Serum or plasma urea nitrogen measurement (mass/volume) 29 mg/dL 7-18 Serum or plasma creatinine measurement (mass/volume) 1.40 mg/dL 0.60-1.30 Serum or plasma urea nitrogen/creatinine mass ratio 21 NRG Serum or plasma creatinine measurement with calculation of estimated glomerular filtration rate 37 NRG Serum or plasma glucose measurement (mass/volume) 110 mg/dL 70-105 Serum or plasma calcium measurement (mass/volume) 8.0 mg/dL 8.5-10.1 Serum or plasma total bilirubin measurement (mass/volume) 2.1 mg/dL 0.1-1.0 Serum or plasma alkaline phosphatase measurement (enzymatic activity/volume) 275 U/L 40-136 Serum or plasma aspartate aminotransferase measurement (enzymatic activity/ volume) 37 U/L 5-34 Serum or plasma alanine aminotransferase measurement (enzymatic activity/volume ) 21 U/L 0-55 Serum or plasma protein measurement (mass/volume) 5.8 g/dL 6.4-8.2 Serum or plasma albumin measurement (mass/volume) 2.1 g/dL 3.2-4.5 CALCIUM CORRECTED 9.5 mg/dL 8.5-10.1 Ammonia - 12/19/17 06:20 Ammonia 36 umol/L 11-32 Complete blood count (CBC) with automated white blood cell (WBC) differential - 12/20/17 05:35 Blood leukocytes automated count (number/volume) 5.6 10*3/uL 4.3-11.0 Blood erythrocytes automated count (number/volume) 2.36 10*6/uL 4.35-5.85 Venous blood hemoglobin measurement (mass/volume) 8.3 g/dL 11.5-16.0 Blood hematocrit (volume fraction) 25 % 35-52 Automated erythrocyte mean corpuscular volume 104 [foz_us] 80-99 Automated erythrocyte mean corpuscular hemoglobin (mass per erythrocyte) 35 pg 25-34 Automated erythrocyte mean corpuscular hemoglobin concentration measurement ( mass/volume) 34 g/dL 32-36 Automated erythrocyte distribution width ratio 19.0 % 10.0-14.5 Automated blood platelet count (count/volume) 88 10*3/uL 130-400 Automated blood platelet mean volume measurement 10.0 [foz_us] 7.4-10.4 Automated blood neutrophils/100 leukocytes 73 % 42-75 Automated blood lymphocytes/100 leukocytes 14 % 12-44 Blood monocytes/100 leukocytes 10 % 0-12 Automated blood eosinophils/100 leukocytes 2 % 0-10 Automated blood basophils/100 leukocytes 1 % 0-10 Blood neutrophils automated count (number/volume) 4.1 10*3 1.8-7.8 Blood lymphocytes automated count (number/volume) 0.8 10*3 1.0-4.0 Blood monocytes automated count (number/volume) 0.6 10*3 0.0-1.0 Automated eosinophil count 0.1 10*3/uL 0.0-0.3 Automated blood basophil count (count/volume) 0.0 10*3/uL 0.0-0.1 Comprehensive metabolic panel - 12/20/17 05:35 Serum or plasma sodium measurement (moles/volume) 138 mmol/L 135-145 Serum or plasma potassium measurement (moles/volume) 3.8 mmol/L 3.6-5.0 Serum or plasma chloride measurement (moles/volume) 110 mmol/L 98-107 Carbon dioxide 17 mmol/L 21-32 Serum or plasma anion gap determination (moles/volume) 11 mmol/L 5-14 Serum or plasma urea nitrogen measurement (mass/volume) 29 mg/dL 7-18 Serum or plasma creatinine measurement (mass/volume) 1.42 mg/dL 0.60-1.30 Serum or plasma urea nitrogen/creatinine mass ratio 20 NRG Serum or plasma creatinine measurement with calculation of estimated glomerular filtration rate 36 NRG Serum or plasma glucose measurement (mass/volume) 126 mg/dL 70-105 Serum or plasma calcium measurement (mass/volume) 8.1 mg/dL 8.5-10.1 Serum or plasma total bilirubin measurement (mass/volume) 2.3 mg/dL 0.1-1.0 Serum or plasma alkaline phosphatase measurement (enzymatic activity/volume) 279 U/L 40-136 Serum or plasma aspartate aminotransferase measurement (enzymatic activity/ volume) 34 U/L 5-34 Serum or plasma alanine aminotransferase measurement (enzymatic activity/volume ) 24 U/L 0-55 Serum or plasma protein measurement (mass/volume) 5.8 g/dL 6.4-8.2 Serum or plasma albumin measurement (mass/volume) 2.1 g/dL 3.2-4.5 CALCIUM CORRECTED 9.6 mg/dL 8.5-10.1 Ammonia - 12/20/17 05:35 Ammonia 53 umol/L 11-32 Complete blood count (CBC) with automated white blood cell (WBC) differential - 12/21/17 06:42 Blood leukocytes automated count (number/volume) 5.3 10*3/uL 4.3-11.0 Blood erythrocytes automated count (number/volume) 2.20 10*6/uL 4.35-5.85 Venous blood hemoglobin measurement (mass/volume) 7.6 g/dL 11.5-16.0 Blood hematocrit (volume fraction) 23 % 35-52 Automated erythrocyte mean corpuscular volume 106 [foz_us] 80-99 Automated erythrocyte mean corpuscular hemoglobin (mass per erythrocyte) 35 pg 25-34 Automated erythrocyte mean corpuscular hemoglobin concentration measurement ( mass/volume) 33 g/dL 32-36 Automated erythrocyte distribution width ratio 19.0 % 10.0-14.5 Automated blood platelet count (count/volume) 93 10*3/uL 130-400 Automated blood platelet mean volume measurement 10.0 [foz_us] 7.4-10.4 Automated blood neutrophils/100 leukocytes 72 % 42-75 Automated blood lymphocytes/100 leukocytes 13 % 12-44 Blood monocytes/100 leukocytes 13 % 0-12 Automated blood eosinophils/100 leukocytes 2 % 0-10 Automated blood basophils/100 leukocytes 0 % 0-10 Blood neutrophils automated count (number/volume) 3.8 10*3 1.8-7.8 Blood lymphocytes automated count (number/volume) 0.7 10*3 1.0-4.0 Blood monocytes automated count (number/volume) 0.7 10*3 0.0-1.0 Automated eosinophil count 0.1 10*3/uL 0.0-0.3 Automated blood basophil count (count/volume) 0.0 10*3/uL 0.0-0.1 Comprehensive metabolic panel - 12/21/17 06:42 Serum or plasma sodium measurement (moles/volume) 136 mmol/L 135-145 Serum or plasma potassium measurement (moles/volume) 3.6 mmol/L 3.6-5.0 Serum or plasma chloride measurement (moles/volume) 108 mmol/L 98-107 Carbon dioxide 20 mmol/L 21-32 Serum or plasma anion gap determination (moles/volume) 8 mmol/L 5-14 Serum or plasma urea nitrogen measurement (mass/volume) 27 mg/dL 7-18 Serum or plasma creatinine measurement (mass/volume) 1.38 mg/dL 0.60-1.30 Serum or plasma urea nitrogen/creatinine mass ratio 20 NRG Serum or plasma creatinine measurement with calculation of estimated glomerular filtration rate 37 NRG Serum or plasma glucose measurement (mass/volume) 138 mg/dL 70-105 Serum or plasma calcium measurement (mass/volume) 8.1 mg/dL 8.5-10.1 Serum or plasma total bilirubin measurement (mass/volume) 2.1 mg/dL 0.1-1.0 Serum or plasma alkaline phosphatase measurement (enzymatic activity/volume) 250 U/L 40-136 Serum or plasma aspartate aminotransferase measurement (enzymatic activity/ volume) 37 U/L 5-34 Serum or plasma alanine aminotransferase measurement (enzymatic activity/volume ) 21 U/L 0-55 Serum or plasma protein measurement (mass/volume) 5.3 g/dL 6.4-8.2 Serum or plasma albumin measurement (mass/volume) 1.9 g/dL 3.2-4.5 CALCIUM CORRECTED 9.8 mg/dL 8.5-10.1 Ammonia - 12/21/17 06:42 Ammonia 66 umol/L 11-32 Complete blood count (CBC) with automated white blood cell (WBC) differential - 12/22/17 05:50 Blood leukocytes automated count (number/volume) 5.0 10*3/uL 4.3-11.0 Blood erythrocytes automated count (number/volume) 2.38 10*6/uL 4.35-5.85 Venous blood hemoglobin measurement (mass/volume) 8.5 g/dL 11.5-16.0 Blood hematocrit (volume fraction) 25 % 35-52 Automated erythrocyte mean corpuscular volume 105 [foz_us] 80-99 Automated erythrocyte mean corpuscular hemoglobin (mass per erythrocyte) 36 pg 25-34 Automated erythrocyte mean corpuscular hemoglobin concentration measurement ( mass/volume) 34 g/dL 32-36 Automated erythrocyte distribution width ratio 19.2 % 10.0-14.5 Automated blood platelet count (count/volume) 81 10*3/uL 130-400 Automated blood platelet mean volume measurement 9.9 [foz_us] 7.4-10.4 Automated blood neutrophils/100 leukocytes 66 % 42-75 Automated blood lymphocytes/100 leukocytes 18 % 12-44 Blood monocytes/100 leukocytes 14 % 0-12 Automated blood eosinophils/100 leukocytes 2 % 0-10 Automated blood basophils/100 leukocytes 0 % 0-10 Blood neutrophils automated count (number/volume) 3.3 10*3 1.8-7.8 Blood lymphocytes automated count (number/volume) 0.9 10*3 1.0-4.0 Blood monocytes automated count (number/volume) 0.7 10*3 0.0-1.0 Automated eosinophil count 0.1 10*3/uL 0.0-0.3 Automated blood basophil count (count/volume) 0.0 10*3/uL 0.0-0.1 Comprehensive metabolic panel - 12/22/17 05:50 Serum or plasma sodium measurement (moles/volume) 134 mmol/L 135-145 Serum or plasma potassium measurement (moles/volume) 3.6 mmol/L 3.6-5.0 Serum or plasma chloride measurement (moles/volume) 106 mmol/L 98-107 Carbon dioxide 19 mmol/L 21-32 Serum or plasma anion gap determination (moles/volume) 9 mmol/L 5-14 Serum or plasma urea nitrogen measurement (mass/volume) 27 mg/dL 7-18 Serum or plasma creatinine measurement (mass/volume) 1.46 mg/dL 0.60-1.30 Serum or plasma urea nitrogen/creatinine mass ratio 18 NRG Serum or plasma creatinine measurement with calculation of estimated glomerular filtration rate 35 NRG Serum or plasma glucose measurement (mass/volume) 169 mg/dL 70-105 Serum or plasma calcium measurement (mass/volume) 8.1 mg/dL 8.5-10.1 Serum or plasma total bilirubin measurement (mass/volume) 1.9 mg/dL 0.1-1.0 Serum or plasma alkaline phosphatase measurement (enzymatic activity/volume) 233 U/L 40-136 Serum or plasma aspartate aminotransferase measurement (enzymatic activity/ volume) 41 U/L 5-34 Serum or plasma alanine aminotransferase measurement (enzymatic activity/volume ) 26 U/L 0-55 Serum or plasma protein measurement (mass/volume) 5.1 g/dL 6.4-8.2 Serum or plasma albumin measurement (mass/volume) 1.8 g/dL 3.2-4.5 CALCIUM CORRECTED 9.9 mg/dL 8.5-10.1 Ammonia - 12/22/17 05:50 Ammonia 81 umol/L 11-32 Encounters ACCT No. Visit Date/Time Discharge Status Pt. Type Provider Facility Loc./Unit Complaint [id number] 04/04/2013 08:24:00 04/04/2013 23:59:59 CLS Outpatient TABBY WOODS APRN [id number] 03/15/2013 15:25:00 03/15/2013 23:59:59 CLS Outpatient TABBY WOODS APRN [id number] 01/26/2013 15:57:00 01/26/2013 23:59:59 CLS Outpatient TABBY WOODS APRN S [id number] 07/04/2012 08:16:00 07/04/2012 23:59:59 CLS Outpatient TABBY WOODS APRN S [id number] 11/20/2017 04:25:00 11/20/2017 08:25:00 DIS Outpatient Julita Madrid [facility] ER [id number] 01/19/2017 08:35:00 01/19/2017 10:50:00 DIS Outpatient Delores [facility] ER [id number] 09/27/2016 22:39:00 09/28/2016 01:15:00 DIS Outpatient ADDY OZUNA [facility] ER [id number] 12/24/2017 11:45:02 Document Registration [id number] 09/28/2016 00:41:45 Document Registration [id number] 12/26/2017 19:40:00 12/29/2017 15:51:00 DIS Inpatient FELICITA MONTERO MD [facility] 4TH HEPATIC ENCYHELOPATHY [id number] 07/26/2017 00:41:00 07/26/2017 23:59:59 CLS Preadmit DERRELL MONROY [facility] ONC [id number] 05/27/2017 14:22:00 07/25/2017 00:01:00 DIS Outpatient DERRELL MONROY [facility] ONC [id number] 01/06/2017 07:54:00 01/06/2017 23:59:59 CLS Outpatient DALLAS RUBIO MD [facility] CARD I25.10 [id number] 11/30/2016 17:09:00 11/30/2016 20:02:00 DIS Emergency KALPANA JEAN MD [facility] ER DISORIENTATION,SWEATY [id number] 01/31/2015 13:51:00 01/31/2015 23:59:59 CLS Outpatient DALLAS RUBIO MD [facility] CARD CAD, CP, HTN, HLD [id number] 04/26/2014 14:39:00 04/26/2014 16:23:00 DIS Emergency BRANDON DAHL, CATA Gaona [facility] ER ABD PAIN/SWELLING [id number] 03/29/2014 13:24:00 03/29/2014 23:59:59 CLS Outpatient SAMINA TREVINO MD [facility] RAD ABD PAIN [id number] 03/29/2014 11:12:00 03/29/2014 23:59:59 CLS Outpatient SAMINA TREVINO MD [facility] RAD ABNORMAL MAMMO [id number] 02/22/2014 08:56:00 02/22/2014 23:59:59 CLS Outpatient SAMINA TREVINO MD [facility] RAD INCREASED BILIRUBIN, ABN LIVER FUNCTION [id number] 09/22/2013 08:52:00 09/22/2013 23:59:59 CLS Outpatient AMINATA PETERSON MD [facility] SDC ABDOMINAL PAIN [id number] 09/20/2013 07:14:00 09/20/2013 23:59:59 CLS Outpatient AMINATA PETERSON MD [facility] PREOP ABDOMINAL PAIN [id number] 09/06/2013 21:05:00 09/07/2013 13:15:00 DIS Inpatient SAMINA TREVINO MD [facility] 4TH ACUTE COLITIS, ABD PAIN, UTI, LEUKOPENIA [id number] 03/22/2013 13:01:00 03/22/2013 23:59:59 CLS Outpatient TABBY WOODS [facility] RAD MEMORY LOSS [id number] 01/26/2013 17:07:00 01/26/2013 23:59:59 CLS Outpatient TABBY WOODS [facility] RAD CHEST WALL PAIN [id number] 11/22/2012 10:06:00 11/28/2012 00:01:00 DIS Outpatient BAKARI FOX MD [facility] ONC [id number] 12/29/2017 16:00:00 ACT Inpatient CATA TAYLOR MD [facility] [address] [facility] [id number] 12/15/2017 11:50:00 ACT Inpatient NEYMAR RODRIGUEZ DO Via [address] GI BLEED,NAFLD [id number] 06/08/2013 00:00:00 Document Registration [id number] 05/25/2012 09:00:00 Document Registration [id number] 05/24/2012 10:44:00 Document Registration [id number] 05/23/2012 08:50:00 Document Registration [id number] 05/17/2012 14:58:00 Document Registration [id number] 05/12/2012 08:14:00 Document Registration [id number] 04/25/2012 10:55:00 Document Registration [id number] 03/16/2012 11:08:00 Document Registration [id number] 04/01/2011 05:31:00 Document Registration [id number] 03/31/2011 08:31:00 Document Registration
[2017-12-29] MEDS ORDERED: LORazepam ORAL CONCENTRATE 2 MG/ML 30 ML (ATIVAN) SL PRN (16:36)
[2017-12-29] MEDS ORDERED: LORazepam INJ 2 MG/ML (ATIVAN) VIAL IVP PRN (18:00)
[2017-12-29] MEDS ORDERED: morphine INJ 4 MG/ML 1 ML (VIAL/SYRINGE) IVP PRN (18:00)
[2017-12-29] MEDS: morphine (ROXINOL) 10 MG/0.5 ML oral conc 0.5 ML PO PRN (19:06)
[2017-12-29] MEDS: LORazepam ORAL CONCENTRATE 2 MG/ML 30 ML (ATIVAN) SL PRN (22:22)
[2017-12-30] MEDS: morphine (ROXINOL) 10 MG/0.5 ML oral conc 0.5 ML PO PRN ×5 (02:21→22:47)
[2017-12-30] MEDS: LORazepam ORAL CONCENTRATE 2 MG/ML 30 ML (ATIVAN) SL PRN ×5 (04:46→19:45)
[2017-12-30] MEDS ORDERED: HYOSCYAMINE 0.125 MG (LEVSIN) TAB PO PRN (05:45)
[2017-12-31] MEDS: LORazepam ORAL CONCENTRATE 2 MG/ML 30 ML (ATIVAN) SL PRN ×3 (00:49→14:02)
[2017-12-31] MEDS: morphine (ROXINOL) 10 MG/0.5 ML oral conc 0.5 ML PO PRN ×3 (03:01→11:47)
[2018-01-01] MEDS ORDERED: SCOPOLAMINE PATCH REMOVAL TP SCH (14:59)
--- NOTE | 2018-01-03 11:12 | Physician Query-Final Dx ---
SAMY COOK 01/03/18 1112: Final Diagnosis Give Final Diagnosis Please give Final Diagnosis CATA TAYLOR MD 02/02/18 1442: Final Diagnosis Give Final Diagnosis Nonalcoholic steatotic hepatitis and cirrhosis. 2.liver failure. 3.hepatic encephalopathy SAMY COOK Jan 03, 2018 11:12 CATA TAYLOR MD Feb 02, 2018 14:42
== END 2017-12-31 18:35 | disposition expired | DRG 441 ==
LOC: 4TH 16:00
PROVIDERS: ADMIT Internal Medicine; ATTEND Internal Medicine
DX: K75.81 Nonalcoholic steatohepatitis (NASH) (principal); K72.91 Hepatic failure, unspecified with coma; Z51.5 Encounter for palliative care; K74.60 Unspecified cirrhosis of liver; E11.9 Type 2 diabetes mellitus without complications; E03.9 Hypothyroidism, unspecified; F41.9 Anxiety disorder, unspecified; Z79.899 Other long term (current) drug therapy